=== PATIENT | male | born 1935 | race Caucasian/White ===

== ENCOUNTER 2017-04-04 12:32 | Emergency (ER) | payer MEDICARE, OTHER ==
[~2017-04-04] VITALS: Ht 175.3 cm; Wt 93.0 kg
[~2017-04-04 12:32] MED LIST: DIOVAN320 MG PO; DULERA1 AE1 IN; KEFLEX500 MG PO; LANSOPRAZOLE30 MG PO; LOVASTATIN40 MG PO; METOPROL TAR100 M1 PO; METOPROL TAR100 MG PO; MEVACOR40 MG PO; NORVASC10 M1 PO; PREVACID15 M1 PO
[2017-04-04] MEDS ORDERED: FUROSEMIDE20 MG PO (12:50)
[2017-04-04] MEDS ORDERED: CLONIDINE0.1 MG PO (12:51)
[2017-04-04] MEDS ORDERED: COQ10200 MG PO (12:52)
[2017-04-04] MEDS ORDERED: ADVAIR HF1 IN (12:52)
[2017-04-04] MEDS ORDERED: RANITIDINE150 M1 PO (12:53)
[2017-04-04] MEDS ORDERED: ALLERGY10 M1 PO (12:53)
[2017-04-04 13:08] LABS: HEMOGLOBIN 10.5 g/dl (14.0-18.0); IMMATURE GRANULOCYTES 0.4 % (0.0-1.0); MEAN CELL VOLUME 90.1 fL CALC (80.0-100.0); MEAN CORPUSCULAR HGB 29.6 pG CALC (26.0-32.0); MEAN CORPUSCULAR HGB CONC 32.8 g/L CALC (32.0-36.0); NEUT# 5.53 thou/uL (1.82-7.42); RED BLOOD COUNT 3.55 mill/uL (4.70-6.10); RED CELL DISTRI WIDTH 16.6 % (11.5-15.5)
[2017-04-04 13:27] LABS: BILIRUBIN, TOTAL 0.6 mg/dL (0.0-1.4); CREATININE 1.5 mg/dL (0.7-1.3); MAGNESIUM 1.5 mg/dL (1.6-2.3); POTASSIUM 4.2 mmol/l (3.5-5.1); TOTAL PROTEIN 8.2 g/dL (6.3-8.2)
[2017-04-04 15:29] VITALS: BP 164/75
== END 2017-04-04 15:30 ==
LOC: ED 12:32
PROVIDERS: Emergency Medicine
DX: K92.2 Gastrointestinal hemorrhage, unspecified (principal); E83.42 Hypomagnesemia; I10 Essential (primary) hypertension
CPT/HCPCS: J3475; S0164

== ENCOUNTER 2017-04-07 03:36 | Emergency (ER) | payer MEDICARE, OTHER ==
[~2017-04-07] VITALS: Ht 175.3 cm; Wt 93.0 kg
[~2017-04-07 03:36] MED LIST changes: +ADVAIR HF1 IN; +ALLERGY10 M1 PO; +CLONIDINE0.1 MG PO; +COQ10200 MG PO; +FUROSEMIDE20 MG PO; +RANITIDINE150 M1 PO
[2017-04-07 03:57] LABS: HEMATOCRIT 20.3 % (39.0-50.0); IMMATURE GRANULOCYTES 0.7 % (0.0-1.0); MEAN CELL VOLUME 96.2 fL CALC (80.0-100.0); MEAN CORPUSCULAR HGB 31.3 pG CALC (26.0-32.0); MEAN CORPUSCULAR HGB CONC 32.5 g/L CALC (32.0-36.0); NEUT# 12.16 thou/uL (1.82-7.42); RED BLOOD COUNT 2.11 mill/uL (4.70-6.10); RED CELL DISTRI WIDTH 17.2 % (11.5-15.5)
[2017-04-07 04:01] LABS: HEMOGLOBIN 6.6 g/dl (14.0-18.0)
[2017-04-07 04:08] VITALS: BP 137/62
[2017-04-07 04:10] LABS: ALBUMIN 3.7 g/dL (3.2-5.0); BILIRUBIN, TOTAL 0.6 mg/dL (0.0-1.4); CALCIUM 9.1 mg/dL (8.4-10.2); CREATININE 2.2 mg/dL (0.7-1.3); POTASSIUM 4.7 mmol/l (3.5-5.1); TOTAL PROTEIN 5.9 g/dL (6.3-8.2)
[2017-04-07] MEDS ORDERED: CHLORTHALIDONE25 MG PO (04:11)
[2017-04-07] MEDS ORDERED: NIFEDIPINE60 MG PO (04:12)
[2017-04-07] MEDS ORDERED: PROTONIX40 M2 PO (04:13)
[2017-04-07] MEDS ORDERED: CARAFATE1 GM PO (04:14)
[2017-04-07 04:28] VITALS: BP 145/64
[2017-04-07 04:44] VITALS: BP 197/78
[2017-04-07 05:14] VITALS: BP 175/77
== END 2017-04-07 05:33 ==
LOC: ED 03:36
PROVIDERS: Emergency Medicine
PROC: 30233N1 Transfusion of Nonautologous Red Blood Cells into Peripheral Vein, Percutaneous Approach (ICD-10-PCS; principal; 2017-04-07)
PROC: 30233N1 Transfusion of Nonautologous Red Blood Cells into Peripheral Vein, Percutaneous Approach (ICD-10-PCS; 2017-04-07)
DX: K92.0 Hematemesis (principal); D50.0 Iron deficiency anemia secondary to blood loss (chronic); I10 Essential (primary) hypertension; J44.9 Chronic obstructive pulmonary disease, unspecified; K25.9 Gastric ulcer, unspecified as acute or chronic, without hemorrhage or perforation
CPT/HCPCS: P9016; S0164

== ENCOUNTER 2018-08-22 09:25 | Inpatient (IN) | payer MEDICARE, OTHER ==
[~2018-08-22] VITALS: Ht 175.3 cm; Wt 73.0 kg
[2018-08-22] VITALS (10 sets, daily range): BP systolic 104–131; BP diastolic 54–62
[~2018-08-22 09:25] MED LIST changes: +CARAFATE1 GM PO; +CHLORTHALIDONE25 MG PO; +NIFEDIPINE60 MG PO; +PROTONIX40 M2 PO
--- NOTE | 2018-08-22 09:38 | NUR ---
WHEELCHAIR TO [facility], TO BED
[2018-08-22 10:17] LABS: HEMATOCRIT 33.3 % (39.0-50.0); HEMOGLOBIN 10.8 g/dl (14.0-18.0); IMMATURE GRANULOCYTES 0.4 % (0.0-5.0); MEAN CORPUSCULAR HGB 27.8 pG CALC (26.0-32.0); MEAN CORPUSCULAR HGB CONC 32.4 g/L CALC (32.0-36.0); NEUT# 18.14 thou/uL (1.82-7.42); RED BLOOD COUNT 3.89 mill/uL (4.70-6.10)
[2018-08-22 10:21] LABS: MEAN CELL VOLUME 85.6 fL CALC (80.0-100.0)
--- NOTE | 2018-08-22 10:30 | NUR ---
PATIENT RESTING AWAIITNG LAB AND RADIOLOGY RESULTS PATIENT STATES SOB DECREASED AND DENIES ANY CHEST PAIN AT THIS TIME
[2018-08-22 10:39] LABS: ALBUMIN 3.5 g/dL (3.2-5.0); BILIRUBIN, TOTAL 0.5 mg/dL (0.0-1.4); CREATININE 1.7 mg/dL (0.7-1.3); POTASSIUM 3.7 mmol/l (3.5-5.1); TOTAL PROTEIN 6.7 g/dL (6.3-8.2)
--- NOTE | 2018-08-22 11:30 | NUR ---
PATIENT RESTING STILL IN AFIB WITH A RATE AT 120 CARDIZEM TITRATED TO 20MG AN HOUR. PATIENT DENIES ANY PAIN OR SOB AT THIS TIME
[2018-08-22] MEDS ORDERED: DILTIAZEM120 M3 PO (11:40)
[2018-08-22] MEDS ORDERED: ESCITALOPRAM OXA5 MG PO (11:41)
[2018-08-22] MEDS ORDERED: SPIRIVA HANDIH18 MCG IN (11:44)
[2018-08-22] MEDS ORDERED: TAMSULOSIN HCL0.4 MG PO (11:45)
[2018-08-22] MEDS ORDERED: METOPROL TAR25 MG PO (11:47)
[2018-08-22] MEDS ORDERED: FIRST-OMEPRAZ2 MG/ML PO (11:48)
[2018-08-22] MEDS ORDERED: HUMALOG100 UNIT/M SC (11:50)
[2018-08-22] MEDS ORDERED: MEGESTROL AC PO (11:50)
--- NOTE | 2018-08-22 12:00 | NUR ---
NORIEGA INSERTED USING STERILE TECHNIQUE 16 IRANIAN 800 ML QUANG URINE OUTPUT
[2018-08-22 12:57] LABS: URINE BILIRUBIN - DIPSTICK NEGATIVE (NEGATIVE); URINE BLOOD DIPSTICK NEGATIVE (NEGATIVE); URINE COLOR YELLOW; URINE GLUCOSE - DIPSTICK NEGATIVE (NEGATIVE); URINE KETONE NEGATIVE (NEGATIVE); URINE PH 5.5 (4.5-8.0); URINE PROTEIN - DIPSTICK NEGATIVE (NEG-TRACE); URINE UROBILINOGEN - DIPSTICK 0.2 E.U./dL (0.2)
--- NOTE | 2018-08-22 13:00 | NUR ---
PATIENT RESTING AWAIITNG ROOM ASSIGNMNET PATIENT DENIES SOB OR CHEST PAIN AT THIS TIME. PATIENT REMAINS IN AFIB
[2018-08-22 13:01] LABS: URINE LEUK ESTERASE MODERATE (NEGATIVE); URINE NITRITE - DIPSTICK POSITIVE (Negative)
[2018-08-22 13:09] LABS: URINE BACTERIA MANY hpf; URINE SQUAMOUS EPITHELIAL CELL FEW EPI/hpf (0-FEW)
--- NOTE | 2018-08-22 13:23 | NUR ---
REPORT RECVD FROM UNA SCHERER IN THE ER. ASKED HIM TO VERIFY PTS SPELLING OF LAST NAME. PT WILL BE UP IN "A WHILE". CASE MANAGEMENT CALLING, INQUIRING ABOUT PT, INFORMED PT IS NOT HERE YET.
--- NOTE | 2018-08-22 13:30 | NUR ---
REPORT CALLED TO ICU
--- NOTE | 2018-08-22 14:14 | NUR ---
PTS CALLED, TRANSFERED HER TO ER. PT NOT IN THE ICU YET.
--- NOTE | 2018-08-22 14:23 | NUR ---
PT ARRIVED TO ICU 2 BY STRETCHER IN STABLE CONDITION WITH IV & O2.
--- NOTE | 2018-08-22 14:25 | NUR ---
CARDIZEM TITRATED DOWN TO 15 FROM 20 IN THE ER DUE TO 15 BEING THE CEILING AMOUNT OF 15 IN THE ICU.
--- NOTE | 2018-08-22 14:25 | NUR ---
PATIENT TRANSPORTED TO ICU
--- NOTE | 2018-08-22 15:00 | NUR ---
PT AWAKE & ALERT/ORIENTED x4. ANSWERS QUESTIONS CORRECTLY W/OUT HESITATION. PT WEARING GLASSES, DENIES HEARING AIDS OR HARD OF HEARING, STATES HE HAS UPPER & LOWER DENTURES BACK AT [facility]. PT STATES HE DRINKS 3 GLASSES OF VODKA PER DAY. 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 BREATHING EVEN/UNLABORED, COARSE CRACKLES HEARD THROUGHT LUNGS. ABD SOFT/NONTENDER, ACTIVE BS. PEG TUBE IN UPPER/MID ABD. BILATERAL HEELS BLANCHABLE, ELEVATED ON A PILLOW TO OFFLOAD. REDDNESS TO BUTTOCKS WITH MILD BREAKDOWN, PHOTOGRAPHED. PT STATES HE HAS A LIVING WILL AT HOME. NKA. HAD A LIQUID BROWN BM YESTERDAY WHICH IS NORMAL FOR PT, DOES NOT NEED ENEMAS. CESAR, HAS DRIFT TO ALL EXTREMETIES. STRONG PULSES x4. PALE/COOL/DRY SKIN. MOISTURE BALM APPLIED TO CRACKED LIPS. HAS NO ALEVISM PREFERENCE. 'S NAME IS HARMAN.
--- NOTE | 2018-08-22 15:05 | NUR ---
UPON PALPATION & AUSCULTATION, PT APPEARS TO BE IN NSR WITH OCCASIONAL PVC'S. RT ASKED TO DO REPEAT EKG. EKG READS SINUS TACHYCARDIA WITH PREMATURE SUPRAVENTRICULAR COMPLEXES AND WITH OCCASIONAL PREMATURE VENTRICULAR COMPLEXES. CARDIZEM TITRATED TO 10 IN AN EFFORT TO STOP IV MED.
[2018-08-22] MEDS ORDERED: MULTI VIT PO (15:25)
[2018-08-22] MEDS ORDERED: FINASTERIDE5 MG PO (15:25)
--- NOTE | 2018-08-22 15:30 | NUR ---
PT WORKING BED CONTROLS & TV REMOTE BY SELF. STATES HE EATS BY MOUTH AND BY PEG TUBE. PER [facility], PT HAS A "REGULAR DIET PUREED TEXTURE, NECTAR CONSISTENCY, NO STAWS FOR NUTRITIONAL NEEDS."
[2018-08-22] MEDS ORDERED: ONDANSETRON HCL4 MG PO (15:35)
--- NOTE | 2018-08-22 15:45 | NUR ---
DR RODRIGUEZ NOTIFIED OF NEWEST EKG AND STEP DOWN OF CARDIZEM. PT SLEEPING AT THIS TIME.
--- NOTE | 2018-08-22 16:20 | NUR ---
DR RODRIGUEZ @BEDSIDE WITH PT.
--- NOTE | 2018-08-22 16:44 | NUR ---
PTS CALLED FOR UPDATE ON PT. CODE GIVEN TO & PT SPOKE WITH ON PORT PHONE.
--- NOTE | 2018-08-22 18:40 | NUR ---
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 PT STATES HE FEELS MORE COMFORTABLE IN SEMIFOWLERS POSITION. PT DENIES N/V SINCE ARRIVAL TO ICU. PT GIVEN PO MED VIA PEG TUBE EARLIER WITHOUT N/V. PT DENIES ANY NEW NEEDS/CONCERNS AT THIS TIME.
--- NOTE | 2018-08-22 18:45 | NUR ---
REPORT FROM Sary HILLIARD RN. ASSUMED PT. CARE.
--- NOTE | 2018-08-22 19:55 | NUR ---
PT. FOUND RESTING IN BED WATCHING TELEVISION IN NO DISTRESS. CRACKLES TO RT. BASE, OTHERWISE CLEAR. HARSH MOIST COUGH NOTED, UNABLE TO PRODUCE SPUTUM. PULSES INTACT. SINUS IN THE 80'S. ADVENTITIOUS BREATH SHOULD APPEAR TO BE TRCHEALLY IN ORIGIN. BOWEL SOUNDS PRESENT IN ALL QUADS. PT. STATES LAST BM WAS YESTERDAY AND LOOSE. STATES WITH MILD PAIN TO BUTTOCK AT SITE OF WOUND/REDNESS. SEE PHOTOGRAPHIC DOCUMENTATION. DENIES SOB OR CP. VSS. CESAR. CALL LIGHT REMAINS WITHIN REACH. UPDATED ON PLAN OF CARE. WILL CONTINUE TO MONITOR.
--- NOTE | 2018-08-22 21:30 | NUR ---
PT. CLEANSED OF STOOL AT THIS TIME. SMALL LOOSE STOOL NOTED. PT. CLEANSED AND LINENS CHANGED. DUODERM DRESSING APPLIED TO LT. BUTTOCK WOUND. PT. REPOSITIONED TO RT. SIDE AT THIS TIME. WILL CONTINUE TO TURN AND MONITOR NEEDED.
--- NOTE | 2018-08-22 22:00 | NUR ---
NEB TREATMENT COMPLETED AT THIS TIME. PT. TOLERATED WELL. PT. CONGESTION APPEARS TO BE TRACHEAL IN NATURE. LUNGS CLEAR WITH EXCEPTION OF RT. BASE THAT HAS FAINT CRACKLES. NO OTHER ADVENTITIOUS LUNG SOUNDS NOTED. PT. UNABLE TO CLEAR OR COUGH UP ANY SPUTUM. WILL CONTINUE TO MONITOR.
[2018-08-23] VITALS (13 sets, daily range): BP systolic 119–159; BP diastolic 57–74
--- NOTE | 2018-08-23 01:02 | NUR ---
ZOSYN INFUSED. NO REACTIONS NOTED. ALL LUMENS FLUSHED PER PROTOCOL AT THIS TIME. PT. REMAINS EASILY AROUSABLE. REMAINS IN SINUS RHYTHM WITH PVC'S. DENIES COMPLAINTS OF PAIN OR NEEDS AT THIS TIME. WILL CONTINUE TO MONITOR.
--- NOTE | 2018-08-23 03:36 | NUR ---
PT. CONTINUES WITH MOIST HARSH SOUNDING COUGH. SPO2 REMAINS STABLE. HR REMAINS SINUS IN THE 90'S. NO RESP DISTRESS NOTED. CALL LIGHT REMAINS WITHIN REACH. WILL CONTINUE TO MONITOR.
--- NOTE | 2018-08-23 05:39 | NUR ---
LABS DRAWN AND CENTRAL LINE FLUSHED PER PROTOCOL. ZOSYN INFUSING WITHOUT SX OF INFILTRATION OR EXTRAVASATION. CALL LIGHT REMAINS WITHIN REACH. CONTINUES WITH INTERMITTENT HARSH COUGH. WILL CONTINUE TO MONITOR.
[2018-08-23 05:49] LABS: HEMATOCRIT 28.7 % (39.0-50.0); HEMOGLOBIN 9.4 g/dl (14.0-18.0); IMMATURE GRANULOCYTES 0.7 % (0.0-5.0); MEAN CELL VOLUME 86.7 fL CALC (80.0-100.0); MEAN CORPUSCULAR HGB 28.4 pG CALC (26.0-32.0); MEAN CORPUSCULAR HGB CONC 32.8 g/L CALC (32.0-36.0); NEUT# 11.56 thou/uL (1.82-7.42); RED BLOOD COUNT 3.31 mill/uL (4.70-6.10); RED CELL DISTRI WIDTH 17.2 % (11.5-15.5)
--- NOTE | 2018-08-23 06:10 | NUR ---
ZOSYN COMPLETE, NO REACTIONS. LUMEN FLUSHED PER PROTOCOL. RT AT BEDSIDE TO ADMINISTER NEB TREATMENT. PT. STABLE. REMAINS SINUS RHYTHM WITH FREQUENT PVC'S.
[2018-08-23 06:14] LABS: ALBUMIN 2.8 g/dL (3.2-5.0); BILIRUBIN, TOTAL 0.3 mg/dL (0.0-1.4); CREATININE 1.8 mg/dL (0.7-1.3); MAGNESIUM 1.5 mg/dL (1.6-2.3); POTASSIUM 3.5 mmol/l (3.5-5.1); TOTAL PROTEIN 5.8 g/dL (6.3-8.2)
--- NOTE | 2018-08-23 07:30 | NUR ---
pt awake in bed; no apparent distress noted; pt offers no complaints; assessment completed at this time; pt alert and oriented; denies pain; no n/v noted; resp even and unlabored; lungs coarse/ rhonchi rigth base; skin color wnl; o2 per nc; bitumastic applier moist harsh cough noted; hr reg; strong pulses; no edema noted; st pac/pvc on monitor; abd soft with bs present; mod loose lt brown bm noted; pericare at this time; mcgregor to gravity with cath cornejo intact place; catheter care done; #20 to lw flushed and patent; RIJ TLC flushed and patent with good blood aspirate noted from all lumens; wound with douderm intact to left buttock; repositioned; oral care wth toothette; am meds explained; call light within reach; will continue to monitor
--- NOTE | 2018-08-23 08:08 | NUR ---
awake in bed; offers no complaints; remains npo pending speech therapy consult; iv's intact' st pvc/pac on monitor; mcgregor to gravity; pt deny needs; call light within reach; will continue to monitor
--- NOTE | 2018-08-23 08:17 | NUR ---
spouse called this specifications writer; passcode verified; update given;
--- NOTE | 2018-08-23 08:48 | NUR ---
pharmacy Mickey called per proposal manager writer; howie results reviewed in regards to lovenox order; lovenox to be given as ordered with approval from pharmacy;
--- NOTE | 2018-08-23 09:22 | NUR ---
LETI Ordoñez called per senior writer in regards to speech therapy marie Ordoñez request order to be faxed; order faxed as per request;
--- NOTE | 2018-08-23 09:27 | NUR ---
Dr Pate present at bedside to assess pt and discuss plan of care
--- NOTE | 2018-08-23 10:06 | NUR ---
awake in bed; spouse present at bedside; no apparent distress noted; sr on monitor; mcgregor to gravity; call light within reach; will continue to monitor
--- NOTE | 2018-08-23 10:59 | NUR ---
[facility]IVIA FROM [facility] CALLED AND STATES THAT HE HAS A TOTAL CONTACT CAST ON THAT SHOULD BE CUT OFF TODAY, THEY ARE CONCERNED ABOUT IT STAYING ON UNTIL HE GETS D/C'D AND CAN RETURN TO THEM FOR FURTHER TREAMTENT. WILL NOTIFY ON AM ROUNDS.
--- NOTE | 2018-08-23 11:35 | NUR ---
CARDIZEM PO REVIEWED WITH MD; MEDICATION DISCONTINUED
--- NOTE | 2018-08-23 12:00 | NUR ---
[id number] pt transported to CT via strecther with portable o2 accompanied by this marine underwriter; marine underwriter remains with pt 1200- returned to unit in stable condition; back to bed; repositioned to right side; monitoring attachments reconnected; mcgregor to gravity; sr on monitor; iv resumed; fluids infusing without complicatoin; oral care; call light within reach; will continue to monitor
--- NOTE | 2018-08-23 12:45 | NUR ---
resting in bed with eyes closed; no apparent distress noted; sr on monitor; will continue to monitor
--- NOTE | 2018-08-23 14:06 | NUR ---
resting with eyes closed; no apparent distress noted; iv patent; no redness or edema noted at site; sr on monitor; mcgregor to gravity; o2 per nc; call light within reach; will continue to monitor
--- NOTE | 2018-08-23 16:15 | NUR ---
awake in bed receiving neb tx; pt offers no complaints; denies pain; sr on monitor; iv patent; no redness or edema noted at site; o2 per nc; mcgregor to gravity; call light within reach; will continue to monitor
--- NOTE | 2018-08-23 16:58 | NUR ---
speech therapist at bedside for swallowing eval
--- NOTE | 2018-08-23 17:43 | NUR ---
Mr. 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 He reports he was golfing 3x weekly, doing yardwork and very active until April 16, 2018 when he had surgery on his bowel. Per Mr. Slater, he went to the rehab center following discharge from the hospital and has experienced a steady decline in health. He offered that he had a MBSS approximately 5 months ago and a PEG tube placed approximately 3 months. Mr. Slater could not verbalize the reason for the PEG tube other that "someone said there was something wrong with my swallow." It is reported that in the rehab center Mr. Slater received nourishment and hydration both orally and via the PEG tube. He was given a puree diet with nectar thickened liquids. Mr. Slater displayed a wet, harsh vocal quality with frequent coughing. He attempted to cough up material but was unable to expectorate. Respiration was audible with wet quality. Mr. Slater is edentulous with dentures at bedside which he stated he no longer wears. Lingual movement was wnl and Mr. Slater was able to easily clear oral moisturizer from his lips. When given small bolus of water, Mr. Slater immediately began coughing for 30-45 seconds and stated the water "went down the wrong way." Multiple prompts to cough and clear were given and even though Mr. Slater complied, he was unable to clear wet/harshness of vocal quality or reduce audible respiration. Given Mr. Slater' current status and presence of PEG tube, consult recommendations include: Frequent oral care with clearing of dried saliva from oral cavity and lips. Suction prn. Position no less than 30 degree angle. Remain NPO with nutrition and hydration administered via PEG until pneumonia is cleared and patient is more stable with the ability to clear pharyx/larynx with cough/clear. SHAREPOINT APPLICATION ARCHITECT will be able to make further recommendations when MBSS report is available. SHAREPOINT APPLICATION ARCHITECT available if needed prn. Contact number outside of PM business hours provided. Thank you for this referral. Agustina Guzman M.A., [facility])-SHAREPOINT APPLICATION ARCHITECT
--- NOTE | 2018-08-23 17:50 | NUR ---
awake in bed; complete bed bath with catheter care and linen change done; pt repositioned to left side; hob elevated; iv patent; fluids infusing without complication; no redness or edema noted at site; st on monitor; npo continues; bed in lowest position; call light within reach
--- NOTE | 2018-08-23 18:50 | NUR ---
REPORT FROM Matthew VO RN. ASSUMED PT. CARE.
--- NOTE | 2018-08-23 20:39 | NUR ---
PT. FOUND RESTING WITH EYES CLOSED IN NO DISTRESS. EASILY AROUSABLE TO LIGHT VERBAL STIMULI. ORIENTED X 3. SKIN WARM AND DRY. AFEBRILE AT 98.1. RESPS EVEN AND UNLABORED. INTERMITTENT HARSH MOIST COUGH REMAINS. VSS. SINUS WITH PVC'S NOTED. BOWEL SOUNDS PRESENT. IV FLUIDS TO RT. IJ TRIPLE LUMEN INFUSING WITHOUT ISSUE. NO EDMEA NOTED. PULSES PRESENT THROUGHOUT. LUNGS CLEAR TO UPPERS, DIMINSHED TO BASES BILAT. PT. MEDICATED PER PHYSICIAN ORDERS VIA PEG AND FLUSHED. ACCUCHECK 133, NO COVERAGE GIVEN. CALL LIGHT WITHIN REACH. PT. REPOSITIONED TO SUPINE AT THIS TIME FROM LT. SIDE. WILL CONTINUE TO MONITOR.
--- NOTE | 2018-08-23 22:30 | NUR ---
PT. RESTING SUPINE WITH EYES CLOSED IN NO DISTRESS. RESPS EVEN AND UNLABORED. REMAINS WITH INTERMITTENT MOIST COUGH. IV FLUIDS CONTINUE TO INFUSE AT 75 CC/HR. CALL LIGHT REMAINS WITHIN REACH.
[2018-08-24] VITALS (12 sets, daily range): BP systolic 125–162; BP diastolic 58–74
--- NOTE | 2018-08-24 00:49 | NUR ---
ZOSYN INFUSED. NO REACTIONS NOTED. REMAINS STABLE. PT. REPOSITIONED TO RT. SIDE AT THIS TIME. REMANIS SINUS RHYTHM IN THE 90'S. WILL CONTINUE TO MONITOR.
--- NOTE | 2018-08-24 02:28 | NUR ---
PT. CONTINUES TO REST WELL. RESPS REMAIN EVEN AND UNLABORED. IV FLUIDS CONTINUE TO INFUSE WITHOUT SIGNS OF INFILTRATION. VSS. REMAINS SINUS IN THE 90'S WITH PVC AND PAC'S. SPO2 REMAINS STABLE ON 2L NC. CALL LIGHT REMAINS WITHIN REACH. WILL CONTINUE TO MONITOR.
--- NOTE | 2018-08-24 04:05 | NUR ---
PT. CONTINUES TO REST IN NO DISTRESS. IV FLUIDS CONTINUE TO INFUSE WITHOUT INFILTRATION OR EXTRAVASATION. PT. REMAINS EASILY AROUSABLE TO LIGHT VERBAL STIMULI. CALL LIGHT REMAINS WITHIN REACH.
--- NOTE | 2018-08-24 04:40 | NUR ---
LABS DRAWN FROM CENTRAL LINE AT THIS TIME. PT. REMAINS EASILY AROUSABLE TO LIGHT VERBAL STIMULI. CENTRAL LINE FLUSHED PER PROTOCOL. WILL CONTINUE TO MONITOR.
[2018-08-24 04:59] LABS: HEMATOCRIT 28.1 % (39.0-50.0); HEMOGLOBIN 8.9 g/dl (14.0-18.0); IMMATURE GRANULOCYTES 0.9 % (0.0-5.0); MEAN CELL VOLUME 87.5 fL CALC (80.0-100.0); MEAN CORPUSCULAR HGB 27.7 pG CALC (26.0-32.0); MEAN CORPUSCULAR HGB CONC 31.7 g/L CALC (32.0-36.0); NEUT# 7.66 thou/uL (1.82-7.42); RED BLOOD COUNT 3.21 mill/uL (4.70-6.10); RED CELL DISTRI WIDTH 17.2 % (11.5-15.5)
[2018-08-24 05:12] LABS: ALBUMIN 2.8 g/dL (3.2-5.0); BILIRUBIN, TOTAL 0.2 mg/dL (0.0-1.4); CREATININE 1.6 mg/dL (0.7-1.3); POTASSIUM 3.3 mmol/l (3.5-5.1); TOTAL PROTEIN 5.8 g/dL (6.3-8.2)
[2018-08-24 05:20] LABS: MAGNESIUM 1.9 mg/dL (1.6-2.3)
--- NOTE | 2018-08-24 06:32 | NUR ---
PT. LINENS CHANGED, RODNEY AND BUTTICKS CLEANSED AT THIS TIME. NEW DUODERM SPOT PLACED TO LT. BUTTOCK WOUND. GOWN CHANGED AT THIS TIME. BARRIER CREAM APPLIED.
--- NOTE | 2018-08-24 07:00 | NUR ---
pt noted resting with eyes closed; easily aroused; pt offers no complaints; assessment completed at this time; pt alert and oriented; denies pain; no n/v noted; resp even and unlabored; lungs coarse with rhonchi noted to right patel; skin color pale; o2 per nc; prescription clerk moist cough noted; suction set up at bedside; hr reg; strong pulses; no edema noted; sr with pac/pvc on monitor; abd soft with bs present; no bm noted per senior writer; peg tube intact to upper abd with no drainage noted from insertion site; pt remains npo; mcgregor to gravity draining cloudy yellow urine; cath strap intact; #22 to lw flushed and patent/ saline locked; TLC to RIJ patent with ivf infusing without complication; no redness or edema noted at site; duoderm intact to left buttock with redness noted; repositioned to supine position as per request; hob elevated; plan of care/ am meds explained; call light within reach; will continue to monitor
--- NOTE | 2018-08-24 08:07 | NUR ---
resting in bed with eyes closed; easily aroused; no distress noted; pt offers no complaints; oral care with toothette; repositioned to right side; mcgregor to gravity; iv patent; call light within reach; will continue to monitor
--- NOTE | 2018-08-24 10:02 | NUR ---
resting in bed with eyes closed; no apparent distress noted; iv patent; no redness or edema noted at site; o2 per nc; mcgregor to gravity; sr on monitor; call light within reach; will continue to monitor
--- NOTE | 2018-08-24 10:07 | NUR ---
Dr Pate present at bedside to assess pt and discuss plan of care
--- NOTE | 2018-08-24 10:34 | NUR ---
Vancomycin consult Age: 83 yo Serum creatinine: 1.6 mg/dL Height: 69.0 Inches Weight (kg): 73.283 IBW (kg): 70.70 Dosing wt(kg): 73.283 Estimated Creatinine clearance (ml/min): 36.2 CRCL method: Cockcroft and Gault using ibw(default). Vd (liters): 51.3 (factor used: 0.7 L/kg) Boo (hr-1): 0.034 Half life (hrs): 20.39 Recommended dose: 1000 mg Interval: 24 hrs Infusion time (hrs): 2.0 Predicted peak (mcg/mL): 34 Predicted trough (mcg/mL): 16.00 Total body weight is being used for vancomycin dosing.
--- NOTE | 2018-08-24 11:00 | NUR ---
awake conversing on cell phone; offers no complaints; peg site cleansed and drain sponge applied; medication administered; vanco infusing via lw site; no redness or edema noted at site; will continue to monitor
--- NOTE | 2018-08-24 12:03 | NUR ---
resting with eyes closed; easily aroused; offers no complaints; iv patent; no redness or edema noted at site; sr pvc on monitor; mcgregor to gravity; o2 per nc; repositioned; oral care; call light within reach; will continue to monitor
--- NOTE | 2018-08-24 13:00 | NUR ---
pt reports "I think I made a mess"; lg liquid brown bm noted; complete bed bath, catheter care, oral care and linen change; barrier cream to buttocks; duoderm spot intact; repositioned to left side; tube feed with glucerna and free H20 completed and tolerated well; hob remains elevated; call light within reach; will continue to montor
--- NOTE | 2018-08-24 14:15 | NUR ---
awake in bed watching television; no distress noted; resp even and unlabored; iv patent; fluids infusing without complication; no redness or edema noted at sites; sr pvc on monitor; mcgregor to gravity; oral care with toothette per self; call light within reach; will continue to monitor
--- NOTE | 2018-08-24 16:12 | NUR ---
awake in bed; repositioned to supine; hob elevated; iv patent; no redness or edema noted at site; mcgregor to gravity; sr on monitor; o2 per nc; deny needs; call light within reach; will continue to monitor
--- NOTE | 2018-08-24 16:34 | NUR ---
personal computer specialist light; request cream to applied to buttom; pt denies bm; lg liquid bm noted; pericare per staff; barrier cream applied; repositined to right side; hob elevated; oral care with toothette; will continue to monitor
--- NOTE | 2018-08-24 17:45 | NUR ---
awake grease monkey light; repositioned supine as per request; mcgregor to gravity; iv patent; no redness or edema noted at site; o2 per nc; sr on monitor; deny needs; bed in lowest position; call light within reach
--- NOTE | 2018-08-24 18:50 | NUR ---
REPORT FROM Matthew VO RN. ASSUMED PT. CARE.
--- NOTE | 2018-08-24 18:50 | NUR ---
resting in bed with eyes closed; no apparent distrss noted; call light within reach
--- NOTE | 2018-08-24 19:45 | NUR ---
PT. FOUND AWAKE, ALERT, ORIENTED X 3. KNOWS MONTH AND YEAR. PT. ONLY COMPLAINT IS SOME MILD PAIN TO BUTTOCKS. WILL TURN Q2H AND PRN. PT. DENIES COMPLAINTS OF SOB. RESPS EVEN AND UNLABORED. REMAINS WITH MOIST/HARSH COUGH. LUNG SOUND CLEAR THROUGHOUT. BOWEL SOUNDS PRESENT. PULSES INTACT DISTILLY. BP/HR STABLE. SINUS RHYTHM WITH PAC/PVC'S. NO DISTRESS AT THIS TIME. WILL CONTINUE TO CLOSELY MONITOR.
--- NOTE | 2018-08-24 21:15 | NUR ---
PT. ACCUCHECK IS NOW 96, NO COVERAGE GIVEN. MEDICATED WITH REGLAN AND METOPROLOL VIA PEG ORDERED. TUBE FEED GLUCERNA PROVIDED AT THIS TIME AND FLUSHED WITH 200 CC WATER. PT. TOLERATED WELL WITHOUT DISCOMFORT. WILL REASSESS RESIDUALS. VSS. CALL LIGHT REMAINS WITHIN REACH. COMPUTER PROVIDED TO PATIENT WHO IS NOW WATCHING THE FOOTBALL GAME PER HIS REQUEST.
--- NOTE | 2018-08-24 22:51 | NUR ---
PT. CLEANSED OF LARGE LIQUID STOOL. LINENS CHANGED AT THIS TIME. PT. REPOSITIONED TO LT. SIDE AND HOB ELEVATED AT 40 DEGRESS AT THIS TIME. WILL CONTINUE TO ASSESS.
[2018-08-25] VITALS (9 sets, daily range): BP systolic 97–169; BP diastolic 52–78
--- NOTE | 2018-08-25 00:15 | NUR ---
ZOSYN INFUSING WITHOUT SX OF INFILTRATION OR EXTRAVASATION. PT. REMAINS WITH INTERMITTENT MOIST COUGH, UNABLE TO CLEAR. REMAINS SINUS IN THE 90'S. WILL CONTINUE TO MONITOR.
--- NOTE | 2018-08-25 02:25 | NUR ---
PT. CONTINUES WITH INTERMITTENT MOIST COUGH. REMAINS UNABLE TO CLEAR. VSS. REMAINS EASILY AROUSABLE TO LIGHT VERBAL STIMULI. WILL CONTINUE TO MONITOR.
--- NOTE | 2018-08-25 04:20 | NUR ---
LABS OBTAINED FROM CENTRAL LINE AT THIS TIME. IV FLUIDS INFUSING AT KVO. PT. REMAINS SINUS IN THE 80'S. BP/SPO2 STABLE. PT. REMAINS ON 2L NC. ASSESSED FOR STOOL, NONE NOTED.
--- NOTE | 2018-08-25 05:20 | NUR ---
NEB TREATMENT COMPLETE AT THIS TIME. PT. REMAINS EASILY AROUSABLE. CALL LIGHT REMAINS WITHIN REACH. WILL CONTINUE TO ASSESS.
[2018-08-25 05:48] LABS: HEMATOCRIT 28.1 % (39.0-50.0); HEMOGLOBIN 8.9 g/dl (14.0-18.0); IMMATURE GRANULOCYTES 1.1 % (0.0-5.0); MEAN CELL VOLUME 87.8 fL CALC (80.0-100.0); MEAN CORPUSCULAR HGB 27.8 pG CALC (26.0-32.0); MEAN CORPUSCULAR HGB CONC 31.7 g/L CALC (32.0-36.0); NEUT# 6.38 thou/uL (1.82-7.42); RED BLOOD COUNT 3.2 mill/uL (4.70-6.10); RED CELL DISTRI WIDTH 17.1 % (11.5-15.5)
[2018-08-25 05:53] LABS: ALBUMIN 2.7 g/dL (3.2-5.0); BILIRUBIN, TOTAL 0.3 mg/dL (0.0-1.4); CREATININE 1.5 mg/dL (0.7-1.3); MAGNESIUM 1.6 mg/dL (1.6-2.3); POTASSIUM 3.8 mmol/l (3.5-5.1); TOTAL PROTEIN 5.6 g/dL (6.3-8.2)
--- NOTE | 2018-08-25 06:05 | NUR ---
PT. CLEANSED OF LIQUID STOOL. DUODERM SPOT REAPPLIED. PHOTOGRAPHIC DOCUMENTATION OBTAINED AND IN CHART. ZOSYN INFUSING WITHOUT SX OF REACTION. WILL CONTINUE TO ASSESS.
--- NOTE | 2018-08-25 07:20 | NUR ---
pt noted resting in bed with eyes closed; easily aroused; offers no complaints; deny needs; assessment completed at this time; pt alert and oriented; denies pain; no n/v noted; resp even and unlabored; lungs coarse; skin color wnl; o2 per nc; freq zigzag stitcher moist harsh cough noted; suction at bedside; hr reg; strong pulses; no edema noted; sr pvc on monitor abd soft with bs present; no bm noted per investment underwriter at this time; peg tube intact to upper abd with scant dry/crusted yellow/green drainage to drain sponge; residual checked with 60cc gastric/bile content noted; hob remains elevated; mcgregor to gravity draining sediment/cloudy urine; cath strap intact; #22 to lw intact; TLC to RIJ patent with ivf infusing without complication; no redness or edema noted at site; duoderm spot to left buttock intact; plan of care/ am meds/ tube feed explained; call light within reach; will continue to monitor
--- NOTE | 2018-08-25 08:04 | NUR ---
resting in bed with eyes closed; resp even and unlabored; sr on monitor; mcgregor to gravity; no apparent distress noted; will continue to monitor
--- NOTE | 2018-08-25 09:00 | NUR ---
awake in bed; repositioned to left side; hob elevated at 45 deg; am meds administered via peg; tube feed completed with 8oz glucerna followed by 200 free water; mcgregor to gravity; o2 per nc; sr on monitor; oral care with toothette; RIJ flushed and patent with good blood aspirate noted from all lumens; #22 in lw flushed and patent; call light within reach; will continue to monitor
--- NOTE | 2018-08-25 09:50 | NUR ---
Dr Pate present at bedside to assess pt and discuss plan of care
--- NOTE | 2018-08-25 10:00 | NUR ---
report called to Kobe Vazquez RN
--- NOTE | 2018-08-25 10:21 | NUR ---
awake in bed; repositioned for comfort; lle elevated as per pt request for comfort; iv patent; no redness or edema noted at site; sr/pvc on monitor; mcgregor to gravity; call light within reach; will continue to monitor
--- NOTE | 2018-08-25 10:40 | NUR ---
pt transferred to med surg via bed with portable o2 in stable condition; pt belongings sent with pt; two blankets noted in room (ICU bed 2); pt deny blankets being his belongings; bedside update given to Kobe Vazquez RN;
--- NOTE | 2018-08-25 11:00 | NUR ---
PT CAME FROM ICU VIA BED BY COOPER AND [facility]MER. PT IN O2 2L/MIN VIA NC. PEG TUBE IN PLACE. NORIEGA IS PATENT WITH YELLOW URINE. PT IS A&O X3. RIJ AND 22 LW APPEARS HEALTHY. SAFETY PRECAUTIONS REINFORCED AND CALL LIGHT IN REACH.
--- NOTE | 2018-08-25 14:58 | NUR ---
HOB ELEVATED. PEG TUBE IN PLACE. RESIDUAL CHECKED 30ML GASTRIC/BILE NOTED. TUBE FEED COMPLETED WITH 8OZ GLUCERNA FOLLOWED BY 200ML FREE WATER WITH REGLAN MEDICATION. PT TOLERARED WELL. PT DENIES NEEDS AT THIS TIME. CALL LIGHT IN REACH.
--- NOTE | 2018-08-25 19:00 | NUR ---
RECEIVED REPORT FROM DAY SHIFT NURSE. PT RESTING IN BED WATCHING TV. NO COMPLAINTS THIS TIME. CALL ROJAS IN REACH. WILL CONTINUE TO MONITOR.
--- NOTE | 2018-08-25 21:13 | NUR ---
PT RESTING IN BED WATCHING TV. CHECKED PT PEG TUBE FOR PLACEMENT, RESIDUAL 60CC, GIVEN 1 GLUCERNA SHAKE, MEDS AND FLUSHED WITH 200CC OF WATER. PT TOLERATED WELL. ASSESMENT COMPLETED AT THIS TIME(SEE INTERVENTION) LUNG SOUNDS COARSE, HEART RATE NORMAL, BOWEL SOUNDS ACTIVE, KIMBERLY AREA TO BUTTOCKS, FORMER DUEDERM FELL OFF NEW ONE APPLIED. BARRIER CREAM APPLIED. PT VOCING NO COMPLAINTS AT THIS TIME. CALL ROJAS IN REACH. PT LEFT UPRIGHT IN BED. WILL CONTINUE TO MONITOR.
--- NOTE | 2018-08-26 | NUR ---
PT RESTING IN BED WITH EYS CLOSED NO S/S OF DISTRESS. CALL ROJAS IN REACH. WILL CONTINUE TO MONITOR.
[2018-08-26 00:16] VITALS: BP 135/81
--- NOTE | 2018-08-26 04:20 | NUR ---
PT RESTING IN BED WITH EYES CLOSED. BLOOD DRAWN THROUGH TRIPLE LUMEN. NORIEGA DRAINING TO GRAVITY. CALL ROJAS IN REACH. WILL CONTINUE TO MONITOR.
[2018-08-26 04:55] VITALS: BP 137/87
[2018-08-26 04:57] LABS: HEMATOCRIT 27.8 % (39.0-50.0); HEMOGLOBIN 8.8 g/dl (14.0-18.0); IMMATURE GRANULOCYTES 1.3 % (0.0-5.0); MEAN CELL VOLUME 87.4 fL CALC (80.0-100.0); MEAN CORPUSCULAR HGB 27.7 pG CALC (26.0-32.0); MEAN CORPUSCULAR HGB CONC 31.7 g/L CALC (32.0-36.0); NEUT# 6.23 thou/uL (1.82-7.42); RED BLOOD COUNT 3.18 mill/uL (4.70-6.10); RED CELL DISTRI WIDTH 16.7 % (11.5-15.5)
[2018-08-26 05:40] LABS: ALBUMIN 2.6 g/dL (3.2-5.0); ALKALINE PHOSPHATASE 74 u/l (38-126); ANION GAP 12 (6-22 (CALC)); BILIRUBIN, TOTAL 0.2 mg/dL (0.0-1.4); BUN 17 mg/dL (8-23); BUN/CREATININE RATIO 13 (12-20 (CALC)); CARBON DIOXIDE 21 mmol/l (22-30); CHLORIDE 110 mmol/l (95-108); CREATININE 1.3 mg/dL (0.7-1.3); GFR 53 ML/MIN (>=60 (CALC)); GFR FOR AFR.AMER. > 60 ML/MIN (>=60 (CALC)); MAGNESIUM 1.4 mg/dL (1.6-2.3); POTASSIUM 3.7 mmol/l (3.5-5.1); SGOT/AST 13 u/l (19-48); SODIUM 139 mmol/l (137-146); TOTAL PROTEIN 5.4 g/dL (6.3-8.2)
[2018-08-26 08:00] VITALS: BP 130/65
--- NOTE | 2018-08-26 08:45 | NUR ---
HOB ELEVATED. AM MEDICATIONS GIVEN VIA PEG TUBE WITH 100ML OF WATER FLUSH. PT TOLERATED WELL. DRESSING CHANGE ON PEG TUBE AND OLD YELLOW DRY CRUST NOTED. RIJ TRIPLE LUMEN APPEAR HEALTHY. PT IS A&O X3. PT DENIES PAIN AT THIS TIME. TELE IN PLACE. LUNGS SOUND COARSE. NORIEGA IS PATENT WITH QUANG URINE. PT TURN TO LEFT SIDE. DUODERM IN PLACE IN BUTTOCK AND BARRIER CREAM APPLIED. SAFETY PRECAUTION REINFORCED AND CALL LIGHT IN REACH.
--- NOTE | 2018-08-26 10:45 | NUR ---
DR. RODRIGUEZ AT BEDSIDE TO ASSESS PT.
[2018-08-26 11:30] VITALS: BP 139/65
--- NOTE | 2018-08-26 11:49 | NUR ---
PT IS RESTING IN BED WITH NO S/S OF DISTRESS NOTED. PT DENIES NEEDS AT THIS TIME. EXPLAIN TO PT THAT HIS TUBE FEEDING IS GOING TO INCREASE. PT VERBALIZED UNDERSTANING AND CALL LIGHT IN REACH.
--- NOTE | 2018-08-26 12:00 | NUR ---
PT IS EATING HIS LUNCH WITH NO S/S OF DISTRESS NOTED. PT DENIES NEEDS AT THIS TIME. CALL LIGHT IN REACH.
--- NOTE | 2018-08-26 14:00 | NUR ---
HOB ELEVATED. PEG TUBE IN PLACE. RESIDUAL CHECKED 30ML GASTRICE/BILE NOTED. TUBE FEED COMPLETED WITH 2 CANS OF 8OZ OF GLUCERNA 1.0 MOLLY FOLLOWED BY 120ML FREE WATER FLUSH. PT TOLERATED WELL. CALL LIGHT IN REACH.
[2018-08-26 16:26] VITALS: BP 146/73
--- NOTE | 2018-08-26 17:30 | NUR ---
HOB ELEVATED. PEG TUBE IN PLACE. PT STATED HE FELT FULL AND STATED THAT THE 2 CANS WAS A LOT FOR HIM. RESIDUAL CHECKED 65ML GASTRIC/BILE NOTED. TUBE FEED PT ONLY 4 OZ OF GLUCERNA AND 50ML OF WATER FLUSH PER PT REQUEST. PT DENIES ANY OTHER NEEDS AT THIS TIME. CALL LIGHT IN REACH.
[2018-08-26 19:39] VITALS: BP 138/72
--- NOTE | 2018-08-26 20:05 | NUR ---
ASSESSMENT IS COMPLTED: PT IS FINISHING GETTING A BATH. IV SITES ARE CDI. NO REDNESS OR EDEMA HR IS REG,PULSES ARE STRONG X4, ABD IS SOFT WITH ACTIVE BS. BREATH SOUNDS ARE COARSE AND DIMINSHED. TELE MONITOR IN PLACE. NORIEGA INTACT DRAINING QUANG UA WITH SEDIMENT. CONTINUE TO OBSERVE AND MONITOR. CALL ROJAS WITHIN REACH.
--- NOTE | 2018-08-26 21:00 | NUR ---
pt had 20cc of residual prior to feeding
--- NOTE | 2018-08-27 00:30 | NUR ---
PT IS RESTING IN BED WITH NO DISTRESS NOTED. IV SITE IS FREE FROM REDNESS OR EDEMA.
[2018-08-27 00:52] VITALS: BP 118/70
[2018-08-27 04:30] VITALS: BP 142/75
--- NOTE | 2018-08-27 04:30 | NUR ---
PT IS RESTING IN BED WITH NO DISTRESS NOTED. IV SITE IS FREE FROM REDNESS OR EDEMA.
[2018-08-27 06:14] LABS: HEMATOCRIT 29.6 % (39.0-50.0); HEMOGLOBIN 9.5 g/dl (14.0-18.0); IMMATURE GRANULOCYTES 1.4 % (0.0-5.0); MEAN CORPUSCULAR HGB 27.6 pG CALC (26.0-32.0); MEAN CORPUSCULAR HGB CONC 32.1 g/L CALC (32.0-36.0); NEUT# 6.42 thou/uL (1.82-7.42); RED BLOOD COUNT 3.44 mill/uL (4.70-6.10); RED CELL DISTRI WIDTH 16.8 % (11.5-15.5)
[2018-08-27 06:33] LABS: ALBUMIN 2.8 g/dL (3.2-5.0); ALKALINE PHOSPHATASE 77 u/l (38-126); ANION GAP 14 (6-22 (CALC)); BILIRUBIN, TOTAL 0.2 mg/dL (0.0-1.4); BUN 14 mg/dL (8-23); BUN/CREATININE RATIO 12 (12-20 (CALC)); CARBON DIOXIDE 18 mmol/l (22-30); CHLORIDE 109 mmol/l (95-108); CREATININE 1.2 mg/dL (0.7-1.3); GFR 58 ML/MIN (>=60 (CALC)); GFR FOR AFR.AMER. > 60 ML/MIN (>=60 (CALC)); MAGNESIUM 1.3 mg/dL (1.6-2.3); POTASSIUM 3.7 mmol/l (3.5-5.1); SGOT/AST 15 u/l (19-48); SODIUM 137 mmol/l (137-146); TOTAL PROTEIN 5.7 g/dL (6.3-8.2)
--- NOTE | 2018-08-27 07:00 | NUR ---
SHIFT REPORT FROM BRIGHT, PT SLEEPING BUT AROUSES TO VERBAL STIMUI, BREATHING EVEN AND NON-LABORED, O2 @ 2L VIA NC IN PLACE, TELE MONITOR IN PLACE, NORIEGA IN PLACE WITH YELLOW URINE, CALL ROJAS IN REACH.
[2018-08-27 09:00] VITALS: BP 136/62
[2018-08-27 11:56] VITALS: BP 122/63
--- NOTE | 2018-08-27 12:00 | NUR ---
INCONTINENT OF BOWELS, RODNEY CARE GIVEN WITH ASSIST OF 2 STAFF.
--- NOTE | 2018-08-27 15:14 | NUR ---
VANCOMYCIN TROUGH IS 17 WE WILL CONTINUE 1GRAM Q24H NEXT TROUGH WILL BE DRAWN ON 08/30/18@ 1030
--- NOTE | 2018-08-27 16:00 | NUR ---
RELAXING IN BED, RODNEY CARE GIVEN AFTER BOWEL INCONTINENCE, ALL NEEDS ADDRESSED.
[2018-08-27 16:05] VITALS: BP 145/76
--- NOTE | 2018-08-27 19:00 | NUR ---
RECIEVED REPORT FROM DAY NURSE, PT RESTING IN BED, NO S/S OF DISTRESS,NORIEGA DRAINING TO GRAVITY CLEAR YELLOW URINE. CALL ROJAS IN REACH. WILL CONTINUE TO MONITOR.
[2018-08-27 19:05] VITALS: BP 150/77
--- NOTE | 2018-08-27 21:25 | NUR ---
PT RESTING IN BED. ASESMENT COMPLETED AT THIS TIME( SEE INTERVENTIONS) LUNGS CLEAR/ DIMINISHED, HEART NORMAL, BOWEL SONDS ACTIVE, NO SWELLING OR EDEMA NOTED. DUEDURM TO BUTTOCKS CDI, TRIPPLE LUMEN IN PLACE, FLUSHES WELL.NORIEGA CATH DRAINING CLEAR YELLOW URINE. CALL ROJAS IN [facility]. WILL CONTINUE TO MONITOR.
--- NOTE | 2018-08-28 | NUR ---
PT ASLEEP AT THIS TIME. RESP. EVEN AND UNLABORED. CALL ROJAS IN REACH. WILL CONTINUE TO MONITOR.
[2018-08-28 00:08] VITALS: BP 137/78
--- NOTE | 2018-08-28 04:00 | NUR ---
PT RESTING QUIETLY IN BED. NO S/S OF DISTRESS NOTED. CALL ROJAS IN REACH. WILL CONTINUE TO MONITOR.
[2018-08-28 05:37] VITALS: BP 133/80
--- NOTE | 2018-08-28 06:26 | NUR ---
PT SLEEPING AT THIS TIME. AWOKEN FOR MORNING FEED. RESIDUAL WAS 50cc AND PT FELT FULL FEEDING HELD AT THIS TIME.
--- NOTE | 2018-08-28 07:05 | NUR ---
REPORT RECEIVED BY LAUREN. PT IS SLEEPING IN BED WITH NO S/S OF DISTRESS NOTED. CALL LIGHT IN REACH.
[2018-08-28 07:53] VITALS: BP 153/73
--- NOTE | 2018-08-28 08:00 | NUR ---
ASSESSMENT DONE TELE IN PLACE. PT IS A&OX3. PT DENIES PAIN AT THIS TIME. PEG TUBE IN PLACE. RIJ APPEARS HEALTHY. SAFETY PRECAUTIONS REINFORCED AND CALL LIGHT IN REACH.
--- NOTE | 2018-08-28 10:30 | NUR ---
HOB ELEVATED. PEG TUBE IN PLACE AND DRESSING. RESIDUAL 25ML. TUBE FEEDING OF 1 CAN OF GLUCERNA. PT TOLEREATED WELL. CALL LIGHT IN REACH.
--- NOTE | 2018-08-28 12:00 | NUR ---
IN ROOM VISITING WITH PT. PT DENIES NEEDS AT THIS TIME. CALL LIGHT IN REACH.
[2018-08-28 12:50] VITALS: BP 126/68
--- NOTE | 2018-08-28 15:30 | NUR ---
PEG TUBE IN PLACE. RESIDUAL 20ML. FEED PT 2 CANS OF GLUCERNA VIA TUBE. PT TOLERATED WELL. CALL LIGHT IN REACH.
[2018-08-28 15:36] VITALS: BP 132/64
--- NOTE | 2018-08-28 18:20 | NUR ---
RESIDUAL 55ML. PT STATED HE FELT FULL. PER PT REQUEST ONLY FEED PT 4 OZ OF GLUNCERNA. PT TOLERATED WELL. CALL LIGHT IN REACH.
[2018-08-28 19:50] VITALS: BP 121/62
--- NOTE | 2018-08-28 21:30 | NUR ---
PT RESTING IN BED WITH EYES CLOSED. NO DISTRESS NOTED AND EASILY AROUSABLE. O2 AT 2L AT BEDSIDE. ASSESMENT COMPLETED AT THIS TIME(SEE INTERVENTION) LUNG SOUNDS CLEAR/DIMINISHED, HERAT SOUNDS NORMAL, BS ACTIVE, NO SWELLING OR EDEMA NOTED. IV FLUSHES WELL.PT MEDICATED PER ORDER AT THIS TIME THROUGH PEG TUBE. PLACEMENT CHECKED, NO RESIDUAL, FEED HELD TILL LATER TIME DUE TO MED INSTRUCTIONS. PT REPOSITIONED AN TURNED. NORIEGA DRAINING CLEAR YELLOW URINE TO GRAVITY. CALL ROJAS IN REACH. WILL CONTINUE TO MONITOR.
--- NOTE | 2018-08-29 | NUR ---
FEED DUE AT THIS TIME. PLACEMENT CHECKED, RESIDUAL 40 AND PT FEELS FULL. FEEDING HELD AT THIS TIME. MEDICATED PER ORDER. NO OTHER NEEDS AT THIS TIME LIGHTS OFF AND PT RESTING WITH EYES CLOSED. CALL ROJAS IN REACH. WILL CONTINUE TO MONITOR.
[2018-08-29 00:18] VITALS: BP 134/70
--- NOTE | 2018-08-29 04:00 | NUR ---
PT ASLEEP AT THIS TIME NO S/S OF DISTRESS NOTED. CALL ROJAS IN REACH. WILL CONTINUE TO MONITOR.
[2018-08-29 04:36] VITALS: BP 123/66
[2018-08-29 05:45] LABS: HEMATOCRIT 29.9 % (39.0-50.0); HEMOGLOBIN 9.9 g/dl (14.0-18.0); IMMATURE GRANULOCYTES 1.1 % (0.0-5.0); MEAN CELL VOLUME 84.5 fL CALC (80.0-100.0); MEAN CORPUSCULAR HGB CONC 33.1 g/L CALC (32.0-36.0); NEUT# 7.37 thou/uL (1.82-7.42); RED BLOOD COUNT 3.54 mill/uL (4.70-6.10); RED CELL DISTRI WIDTH 16.6 % (11.5-15.5)
[2018-08-29 06:00] LABS: ALBUMIN 2.9 g/dL (3.2-5.0); ALKALINE PHOSPHATASE 84 u/l (38-126); ANION GAP 15 (6-22 (CALC)); BILIRUBIN, TOTAL 0.3 mg/dL (0.0-1.4); BUN 14 mg/dL (8-23); BUN/CREATININE RATIO 12 (12-20 (CALC)); CARBON DIOXIDE 20 mmol/l (22-30); CHLORIDE 105 mmol/l (95-108); CREATININE 1.1 mg/dL (0.7-1.3); GFR > 60 ML/MIN (>=60 (CALC)); GFR FOR AFR.AMER. > 60 ML/MIN (>=60 (CALC)); MAGNESIUM 1.2 mg/dL (1.6-2.3); POTASSIUM 3.9 mmol/l (3.5-5.1); SGOT/AST 20 u/l (19-48); SODIUM 136 mmol/l (137-146)
--- NOTE | 2018-08-29 06:00 | NUR ---
PT REFUSED FEED AT THIS TIME.
--- NOTE | 2018-08-29 07:20 | NUR ---
REPORT RECEIVED FROM SHELTON JAIN;PT APPEARS TO BE SLEEPING IN SEMI FOWLERS POSITION;NO S/S OF DISTRESS NOTED;RESPIRATIONS EVEN AND UNLABORED ON RA;TELE MONITORING IN PLACE;ACCUCHECK 97, NO COVERAGE NEEDED THIS MORNING;FALL PRECAUTIONS IN PLACE WITH BED IN THE LOWEST POSITION AND CALL LIGHT IN REACH;WILL CONTINUE TO MONITOR
[2018-08-29 09:04] VITALS: BP 131/67
--- NOTE | 2018-08-29 09:05 | NUR ---
PT RESTING IN SEMI FOWLERS POSITION;VS OBTAINED AND ASSESSMENT COMPLETED;PT DENIES ANY CURRENT PAIN OR DISCOMFORTS,PAIN SCALE AND REPORTING EDUCATED;RESPIRATIONS EVEN AND UNLABORED,SHALLOW ON O2 @ 2L VIA NC;NON-PRODUCTIVE COUGH NOTED AT TIMES;ABDOMEN SOFT ON PALPATION AND ACTIVE IN ALL 4 QUADRANTS;WEAK PEDAL PULSES;#22G TO LEFT WRIST FLUSHED AND PATENT,SITE APPEARS HEALTHY;NORIEGA CATHETER PATENT DRAINING CLEAR/YELLOW URINE,LEG STRAP IN PLACE;PEG TUBE NOTED,UPON ASSESSMENT 5ML OF RESIDUAL OBTAINED;TELE MONITORING IN PLACE;IT SHOULD BE NOTED THAT PT IS A Q2 TURN,WOUND TO LEFT BUTTOCK.DUEDERM IN PLACE AND PICTURES IN CHART;PT DENIES ANY CURRENT NEEDS AT THIS TIME AND IS ENCOURAGED TO CALL FOR ASSISTANCE IF NEEDED;FALL PRECAUTIONS IN PLACE WITH CALL LIGHT IN REACH;WILL CONTINUE TO MONITOR
--- NOTE | 2018-08-29 09:13 | NUR ---
PT WAS SEEN FOR FUNCTIONAL ACTIVITY AND THEREX. HE GOT OOB FROM SUPINE TO SITTING WITH MOD. ASSIST ON ROLLING, SCOOTING AND LIFTING B LE OFF BED. HE WAS THEN GIVEN VERBAL CUES TO STAND UP FROM SITTING WITH MOD. A AND RW TO MAINTAIN STATIC STANDING. PT WAS ABLE TO TOLERATE STANDING FOR A VERY SHORT TIME <20 SECONDS. [id number] WAS DONE X 10 REPS WITH MOD A AND VERBAL CUES ON HAND PLACEMENT AND PROPER STANCE. PRIOR TO REPOSITIONING PT ON BED, HE WAS INSTRUCTED TO TAKE SIDE STEPS ON STANDING POSITION WHICH HE WAS UNABLE TO PERFORM. HE WAS THEN OFFERED MAX A OF 2 IN PULLING THE DRAWSHEET TO REPOSITION HIM ON BED. GENERALIZED WEAKNESS AND SOB WERE NOTED DURING AND AFTER THE ACTIVITIES. O2 VIA NASAL CANNULA WAS REATTACHED SET AT 2L. LEFT PT COMFORTABLY RESTING IN THE BED WITH HOB SLIGHTLY ELEVATED. CALL ROJAS BESIDE HIM. FALL PRECAUTIONS REINFORCED.
--- NOTE | 2018-08-29 10:58 | NUR ---
AT BEDSIDE DISCUSSING POC INCLUDING D/C TO [facility].
[2018-08-29 11:00] VITALS: BP 137/76
--- NOTE | 2018-08-29 11:30 | NUR ---
PT RESTING IN RIGHT SIDE LAYING POSITION;RESPIRATIONS EVEN AND UNLABORED ON O2 @ 2L VIA NC;PT DENIES ANY CURRENT PAIN OR NEEDS;IV SITE TO LEFT WRIST REMAINS PATENT;TELE MONITORING IN PLACE;PT TOLERATED FEED THROUGH PEG TUBE WELL;ACCUCHECK 94, NO COVERAGE NEEDED;NORIEGA CATHETER REMAINS PATENT HANGING TO GRAVITY;PT ENCOURAGED TO CALL FOR ASSISTANCE IF NEEDED;FALL PRECAUTIONS IN PLACE WITH CALL LIGHT IN REACH;WILL CONTINUE TO MONITOR
[2018-08-29] MEDS ORDERED: CIPROFLOXACIN500 M1 VT (14:53)
[2018-08-29] MEDS ORDERED: METOCLOPRAMIDE10 MG PO (14:54)
[2018-08-29] MEDS ORDERED: PROTONIX40 M3 IV (14:54)
[2018-08-29] MEDS ORDERED: ALLOPURINOL100 MG PO (14:55)
--- NOTE | 2018-08-29 15:20 | NUR ---
PT RESTING IN SEMI FOWLERS POSITION;PT RE-POSITIONED IN RIGHT SIDE LAYING POSITION;RESPIRATIONS EVEN AND UNLABORED ON O2 @ 2L VIA NC;PT DENIES ANY CURRENT PAIN OR DISCOMFORTS;TELE MONITORING IN PLACE;PT REFUSED SECOND BOTTLE OF GLUCERNA,BUT TOLERATED 1 CAN WELL;NORIEGA CATHETER REMAINS IN PLACE DRAINING TO GRAVITY;PT ENCOURAGED TO CALL FOR ASSISTANCE IF NEEDED;FALL PRECAUTIONS IN PLACE WITH CALL LIGHT IN REACH;WILL CONTINUE TO MONITOR
[2018-08-29 15:51] VITALS: BP 136/74
--- NOTE | 2018-08-29 17:15 | NUR ---
PT RESTING IN SEMI FOWLERS POSITION;TRANSPORTATION FOR [facility] AT BEDSIDE;IV SITE REMOVED WITH CATHETER INTACT;PT DENIES ANY ADDITIONAL NEEDS AT THIS TIME;WHEELCHAIR PROVIDED FOR D/C.
--- NOTE | 2018-08-29 17:23 | NUR ---
Discharge instructions given. Patient verbalizes understanding of same. Discharged in stable condition via [facility] with *Other. All belongings sent with pt. Pt transported via in stable condition to [facility] and rehab.
--- NOTE | 2018-08-29 17:52 | NUR ---
REPORT CALLED TO UNA LEVINE AT [facility].
== END 2018-08-29 17:23 | DRG 177 ==
LOC: ED 09:25 → ED-I 09:31 → ED 12:12 → ICU 12:13 → MS2 08-25 11:05
PROVIDERS: Family Medicine; ADMIT Internal Medicine Nephrology; ATTEND Internal Medicine Nephrology
PROC: 0T9B70Z Drainage of Bladder with Drainage Device, Via Natural or Artificial Opening (ICD-10-PCS; principal; 2018-08-22)
PROC: 02HV33Z Insertion of Infusion Device into Superior Vena Cava, Percutaneous Approach (ICD-10-PCS; 2018-08-22)
DX: J69.0 Pneumonitis due to inhalation of food and vomit (principal); G93.41 Metabolic encephalopathy; N39.0 Urinary tract infection, site not specified; N17.9 Acute kidney failure, unspecified; I48.91 Unspecified atrial fibrillation; I12.9 Hypertensive chronic kidney disease with stage 1 through stage 4 chronic kidney disease, or unspecified chronic kidney disease; E11.22 Type 2 diabetes mellitus with diabetic chronic kidney disease; N18.3 Chronic kidney disease, stage 3 (moderate); D63.8 Anemia in other chronic diseases classified elsewhere; E11.43 Type 2 diabetes mellitus with diabetic autonomic (poly)neuropathy; K31.84 Gastroparesis; I69.391 Dysphagia following cerebral infarction; R13.10 Dysphagia, unspecified; F32.9 Major depressive disorder, single episode, unspecified; N40.0 Benign prostatic hyperplasia without lower urinary tract symptoms; E78.5 Hyperlipidemia, unspecified; B95.2 Enterococcus as the cause of diseases classified elsewhere; Z93.1 Gastrostomy status; Z79.4 Long term (current) use of insulin
CPT/HCPCS: J1650; J3475; S0164

== ENCOUNTER 2018-09-15 13:51 | Inpatient (IN) | payer MEDICARE, OTHER ==
[~2018-09-15] VITALS: Ht 175.3 cm; Wt 74.9 kg
[2018-09-15] VITALS (8 sets, daily range): BP systolic 116–160; BP diastolic 52–67
[~2018-09-15 13:51] MED LIST changes: +ALLOPURINOL100 MG PO; +CIPROFLOXACIN500 M1 VT; +DILTIAZEM120 M3 EN; +ESCITALOPRAM OXA5 MG PO; +FINASTERIDE5 MG PO; +FIRST-OMEPRAZ2 MG/ML PO; +HUMALOG100 UNIT/M SC; +MEGESTROL AC PO; +METOCLOPRAMIDE10 MG PO; +METOPROL TAR25 MG PO; +MULTI VIT PO; +ONDANSETRON HCL4 MG PO; +PROTONIX40 M3 IV; +SPIRIVA HANDIH18 MCG IN; +TAMSULOSIN HCL0.4 MG PO
[2018-09-15 14:21] LABS: HEMATOCRIT 34.5 % (39.0-50.0); HEMOGLOBIN 10.9 g/dl (14.0-18.0); IMMATURE GRANULOCYTES 0.2 % (0.0-5.0); MEAN CELL VOLUME 88.5 fL CALC (80.0-100.0); MEAN CORPUSCULAR HGB 27.9 pG CALC (26.0-32.0); MEAN CORPUSCULAR HGB CONC 31.6 g/L CALC (32.0-36.0); NEUT# 9.24 thou/uL (1.82-7.42); RED BLOOD COUNT 3.9 mill/uL (4.70-6.10); RED CELL DISTRI WIDTH 18.3 % (11.5-15.5)
[2018-09-15] MEDS ORDERED: SPIRIVA HANDIHALER IN (14:23)
[2018-09-15] MEDS ORDERED: HUMALOG KW100 UNIT/M SC (14:40)
[2018-09-15 14:50] LABS: ANION GAP 20 (6-22 (CALC)); BUN 35 mg/dL (8-23); BUN/CREATININE RATIO 23 (12-20 (CALC)); CARBON DIOXIDE 22 mmol/l (22-30); CHLORIDE 104 mmol/l (95-108); CREATININE 1.5 mg/dL (0.7-1.3); GFR 45 ML/MIN (>=60 (CALC)); GFR FOR AFR.AMER. 54 ML/MIN (>=60 (CALC)); SODIUM 141 mmol/l (137-146)
[2018-09-15 14:51] LABS: POTASSIUM 5.1 mmol/l (3.5-5.1)
[2018-09-15 15:19] LABS: URINE BILIRUBIN - DIPSTICK NEGATIVE (NEGATIVE); URINE BLOOD DIPSTICK MODERATE (NEGATIVE); URINE COLOR YELLOW; URINE GLUCOSE - DIPSTICK NEGATIVE (NEGATIVE); URINE KETONE 15 mg/dL (NEGATIVE); URINE PH 5.5 (4.5-8.0); URINE PROTEIN - DIPSTICK >=300 mg/dL (NEG-TRACE); URINE UROBILINOGEN - DIPSTICK 0.2 E.U./dL (0.2)
[2018-09-15 15:20] LABS: URINE LEUK ESTERASE MODERATE (NEGATIVE); URINE NITRITE - DIPSTICK POSITIVE (Negative)
[2018-09-15 15:21] LABS: URINE BACTERIA MODERATE hpf; URINE SQUAMOUS EPITHELIAL CELL FEW EPI/hpf (0-FEW); URINE WBC 20-50 WBC/hpf (0-5)
[2018-09-16] VITALS (11 sets, daily range): BP systolic 108–133; BP diastolic 53–61
[2018-09-16 06:01] LABS: HEMATOCRIT 29.8 % (39.0-50.0); HEMOGLOBIN 9.5 g/dl (14.0-18.0); IMMATURE GRANULOCYTES 0.3 % (0.0-5.0); MEAN CELL VOLUME 87.9 fL CALC (80.0-100.0); MEAN CORPUSCULAR HGB CONC 31.9 g/L CALC (32.0-36.0); RED BLOOD COUNT 3.39 mill/uL (4.70-6.10); RED CELL DISTRI WIDTH 18.2 % (11.5-15.5)
[2018-09-16 06:10] LABS: ALBUMIN 3.2 g/dL (3.2-5.0); BILIRUBIN, TOTAL 0.5 mg/dL (0.0-1.4); CREATININE 1.4 mg/dL (0.7-1.3); MAGNESIUM 1.5 mg/dL (1.6-2.3); POTASSIUM 4.8 mmol/l (3.5-5.1); TOTAL PROTEIN 6.1 g/dL (6.3-8.2)
[2018-09-16 06:31] LABS: PLATELET COUNT 253 thou/uL (130-400)
[2018-09-16 06:32] LABS: BAND 22 % (0-8); MANUAL DIFFERENTIAL YES; MICROCYTOSIS FEW; OVALOCYTES FEW; PLATELET ESTIMATE NORMAL; SCHISTOCYTES FEW
[2018-09-16 11:57] LABS: URINE BILIRUBIN - DIPSTICK NEGATIVE (NEGATIVE); URINE BLOOD DIPSTICK LARGE (NEGATIVE); URINE COLOR YELLOW; URINE GLUCOSE - DIPSTICK NEGATIVE (NEGATIVE); URINE KETONE NEGATIVE (NEGATIVE); URINE LEUK ESTERASE MODERATE (Negative); URINE NITRITE - DIPSTICK NEGATIVE (Negative); URINE PH 5.5 (4.5-8.0); URINE PROTEIN - DIPSTICK TRACE mg/dL (NEG-TRACE); URINE SPECIFIC GRAVITY 1.025; URINE UROBILINOGEN - DIPSTICK 0.2 E.U./dL (0.2)
[2018-09-16 12:04] LABS: URINE CLARITY SL CLOUDY
[2018-09-16 12:05] LABS: URINE BACTERIA FEW hpf; URINE EPITHELIAL CELLS FEW EPI/hpf (0-FEW)
[2018-09-17] VITALS (12 sets, daily range): BP systolic 120–149; BP diastolic 54–68
[2018-09-17 06:18] LABS: HEMATOCRIT 27.7 % (39.0-50.0); HEMOGLOBIN 8.8 g/dl (14.0-18.0); IMMATURE GRANULOCYTES 0.5 % (0.0-5.0); MEAN CELL VOLUME 87.9 fL CALC (80.0-100.0); MEAN CORPUSCULAR HGB 27.9 pG CALC (26.0-32.0); MEAN CORPUSCULAR HGB CONC 31.8 g/L CALC (32.0-36.0); PLATELET COUNT 242 thou/uL (130-400); RED BLOOD COUNT 3.15 mill/uL (4.70-6.10); RED CELL DISTRI WIDTH 18.4 % (11.5-15.5)
[2018-09-17 06:42] LABS: ALBUMIN 3.1 g/dL (3.2-5.0); ALKALINE PHOSPHATASE 90 u/l (38-126); ANION GAP 14 (6-22 (CALC)); BILIRUBIN, TOTAL 0.3 mg/dL (0.0-1.4); BUN 33 mg/dL (8-23); BUN/CREATININE RATIO 26 (12-20 (CALC)); CARBON DIOXIDE 23 mmol/l (22-30); CHLORIDE 110 mmol/l (95-108); CREATININE 1.3 mg/dL (0.7-1.3); GFR 53 ML/MIN (>=60 (CALC)); GFR FOR AFR.AMER. > 60 ML/MIN (>=60 (CALC)); MAGNESIUM 1.6 mg/dL (1.6-2.3); POTASSIUM 4.2 mmol/l (3.5-5.1); SGOT/AST 16 u/l (19-48); SODIUM 144 mmol/l (137-146); TOTAL PROTEIN 5.9 g/dL (6.3-8.2)
[2018-09-17 06:56] LABS: BAND 15 % (0-8); HYPOCHROMIA FEW; MANUAL DIFFERENTIAL YES; MICROCYTOSIS FEW
[2018-09-17 06:57] LABS: PLATELET ESTIMATE NORMAL; SCHISTOCYTES FEW
[2018-09-18] VITALS (7 sets, daily range): BP systolic 131–150; BP diastolic 62–76
[2018-09-18 05:43] LABS: HEMATOCRIT 29.9 % (39.0-50.0); HEMOGLOBIN 9.4 g/dl (14.0-18.0); IMMATURE GRANULOCYTES 0.9 % (0.0-5.0); MEAN CELL VOLUME 87.9 fL CALC (80.0-100.0); MEAN CORPUSCULAR HGB 27.6 pG CALC (26.0-32.0); MEAN CORPUSCULAR HGB CONC 31.4 g/L CALC (32.0-36.0); NEUT# 13.19 thou/uL (1.82-7.42); RED BLOOD COUNT 3.4 mill/uL (4.70-6.10); RED CELL DISTRI WIDTH 18.3 % (11.5-15.5)
[2018-09-18 06:14] LABS: ALBUMIN 2.9 g/dL (3.2-5.0); ALKALINE PHOSPHATASE 97 u/l (38-126); AMYLASE < 30 u/l (30-110); ANION GAP 14 (6-22 (CALC)); BILIRUBIN, TOTAL 0.3 mg/dL (0.0-1.4); BUN 25 mg/dL (8-23); BUN/CREATININE RATIO 23 (12-20 (CALC)); CARBON DIOXIDE 24 mmol/l (22-30); CHLORIDE 109 mmol/l (95-108); CREATININE 1.1 mg/dL (0.7-1.3); GFR > 60 ML/MIN (>=60 (CALC)); GFR FOR AFR.AMER. > 60 ML/MIN (>=60 (CALC)); LIPASE 30 u/l (23-300); MAGNESIUM 1.7 mg/dL (1.6-2.3); POTASSIUM 4.1 mmol/l (3.5-5.1); SGOT/AST 14 u/l (19-48); SODIUM 143 mmol/l (137-146); TOTAL PROTEIN 5.7 g/dL (6.3-8.2)
[2018-09-19] VITALS (9 sets, daily range): BP systolic 118–165; BP diastolic 64–81
[2018-09-19 06:01] LABS: HEMATOCRIT 29.2 % (39.0-50.0); HEMOGLOBIN 9.3 g/dl (14.0-18.0); IMMATURE GRANULOCYTES 0.7 % (0.0-5.0); MEAN CELL VOLUME 86.9 fL CALC (80.0-100.0); MEAN CORPUSCULAR HGB 27.7 pG CALC (26.0-32.0); MEAN CORPUSCULAR HGB CONC 31.8 g/L CALC (32.0-36.0); NEUT# 12.22 thou/uL (1.82-7.42); RED BLOOD COUNT 3.36 mill/uL (4.70-6.10)
[2018-09-19 06:24] LABS: ALBUMIN 2.8 g/dL (3.2-5.0); ALKALINE PHOSPHATASE 106 u/l (38-126); AMYLASE < 30 u/l (30-110); ANION GAP 15 (6-22 (CALC)); BILIRUBIN, TOTAL 0.3 mg/dL (0.0-1.4); BUN 20 mg/dL (8-23); BUN/CREATININE RATIO 21 (12-20 (CALC)); CARBON DIOXIDE 24 mmol/l (22-30); CHLORIDE 104 mmol/l (95-108); GFR > 60 ML/MIN (>=60 (CALC)); GFR FOR AFR.AMER. > 60 ML/MIN (>=60 (CALC)); LIPASE 31 u/l (23-300); MAGNESIUM 1.6 mg/dL (1.6-2.3); POTASSIUM 4.2 mmol/l (3.5-5.1); SGOT/AST 15 u/l (19-48); SODIUM 139 mmol/l (137-146); TOTAL PROTEIN 5.6 g/dL (6.3-8.2)
[2018-09-20 04:17] VITALS: BP 155/83
[2018-09-20 06:00] LABS: HEMATOCRIT 32.6 % (39.0-50.0); HEMOGLOBIN 10.5 g/dl (14.0-18.0); IMMATURE GRANULOCYTES 1.7 % (0.0-5.0); MEAN CELL VOLUME 86.5 fL CALC (80.0-100.0); MEAN CORPUSCULAR HGB 27.9 pG CALC (26.0-32.0); MEAN CORPUSCULAR HGB CONC 32.2 g/L CALC (32.0-36.0); NEUT# 9.96 thou/uL (1.82-7.42); RED BLOOD COUNT 3.77 mill/uL (4.70-6.10); RED CELL DISTRI WIDTH 17.8 % (11.5-15.5)
[2018-09-20 06:07] LABS: ALBUMIN 3.1 g/dL (3.2-5.0); ALKALINE PHOSPHATASE 103 u/l (38-126); ANION GAP 18 (6-22 (CALC)); BILIRUBIN, TOTAL 0.4 mg/dL (0.0-1.4); BUN 18 mg/dL (8-23); BUN/CREATININE RATIO 20 (12-20 (CALC)); CARBON DIOXIDE 22 mmol/l (22-30); CHLORIDE 102 mmol/l (95-108); CREATININE 0.9 mg/dL (0.7-1.3); GFR > 60 ML/MIN (>=60 (CALC)); GFR FOR AFR.AMER. > 60 ML/MIN (>=60 (CALC)); MAGNESIUM 1.6 mg/dL (1.6-2.3); POTASSIUM 4.6 mmol/l (3.5-5.1); SGOT/AST 26 u/l (19-48); SODIUM 137 mmol/l (137-146); TOTAL PROTEIN 5.9 g/dL (6.3-8.2)
[2018-09-20 09:33] VITALS: BP 149/70
[2018-09-20 11:20] VITALS: BP 161/65
[2018-09-20 15:45] VITALS: BP 145/79
[2018-09-20 20:25] VITALS: BP 135/70
[2018-09-21 00:17] VITALS: BP 116/59
[2018-09-21 04:12] VITALS: BP 117/58
[2018-09-21 06:26] LABS: HEMATOCRIT 28.3 % (39.0-50.0); HEMOGLOBIN 9.3 g/dl (14.0-18.0); IMMATURE GRANULOCYTES 3.2 % (0.0-5.0); MEAN CELL VOLUME 84.5 fL CALC (80.0-100.0); MEAN CORPUSCULAR HGB 27.8 pG CALC (26.0-32.0); MEAN CORPUSCULAR HGB CONC 32.9 g/L CALC (32.0-36.0); NEUT# 8.07 thou/uL (1.82-7.42); RED BLOOD COUNT 3.35 mill/uL (4.70-6.10); RED CELL DISTRI WIDTH 17.7 % (11.5-15.5)
[2018-09-21 06:38] LABS: ALBUMIN 2.8 g/dL (3.2-5.0); ALKALINE PHOSPHATASE 94 u/l (38-126); ANION GAP 16 (6-22 (CALC)); BILIRUBIN, TOTAL 0.3 mg/dL (0.0-1.4); BUN 19 mg/dL (8-23); BUN/CREATININE RATIO 21 (12-20 (CALC)); CARBON DIOXIDE 21 mmol/l (22-30); CHLORIDE 102 mmol/l (95-108); CREATININE 0.9 mg/dL (0.7-1.3); GFR > 60 ML/MIN (>=60 (CALC)); GFR FOR AFR.AMER. > 60 ML/MIN (>=60 (CALC)); MAGNESIUM 1.6 mg/dL (1.6-2.3); POTASSIUM 4.6 mmol/l (3.5-5.1); SGOT/AST 25 u/l (19-48); SODIUM 134 mmol/l (137-146); TOTAL PROTEIN 5.5 g/dL (6.3-8.2)
[2018-09-21 09:13] VITALS: BP 119/52
[2018-09-21 16:15] VITALS: BP 147/71
[2018-09-21 19:00] VITALS: BP 121/65
[2018-09-22] VITALS (7 sets, daily range): BP systolic 104–153; BP diastolic 60–75
[2018-09-22 05:30] LABS: HEMATOCRIT 28.3 % (39.0-50.0); HEMOGLOBIN 9.1 g/dl (14.0-18.0); IMMATURE GRANULOCYTES 3.5 % (0.0-5.0); MEAN CELL VOLUME 85.2 fL CALC (80.0-100.0); MEAN CORPUSCULAR HGB 27.4 pG CALC (26.0-32.0); MEAN CORPUSCULAR HGB CONC 32.2 g/L CALC (32.0-36.0); NEUT# 6.74 thou/uL (1.82-7.42); RED BLOOD COUNT 3.32 mill/uL (4.70-6.10); RED CELL DISTRI WIDTH 17.7 % (11.5-15.5)
[2018-09-22 05:39] LABS: ANION GAP 15 (6-22 (CALC)); BUN 22 mg/dL (8-23); BUN/CREATININE RATIO 26 (12-20 (CALC)); CARBON DIOXIDE 21 mmol/l (22-30); CHLORIDE 101 mmol/l (95-108); CREATININE 0.9 mg/dL (0.7-1.3); GFR > 60 ML/MIN (>=60 (CALC)); GFR FOR AFR.AMER. > 60 ML/MIN (>=60 (CALC)); MAGNESIUM 1.7 mg/dL (1.6-2.3); POTASSIUM 4.6 mmol/l (3.5-5.1); SODIUM 133 mmol/l (137-146)
[2018-09-23 00:10] VITALS: BP 124/75
[2018-09-23 04:46] VITALS: BP 125/73
[2018-09-23 08:42] VITALS: BP 118/42
[2018-09-23 12:21] VITALS: BP 169/80
[2018-09-23 14:50] VITALS: BP 131/63
[2018-09-23 19:00] VITALS: BP 128/53
[2018-09-23 21:00] LABS: URINE BILIRUBIN - DIPSTICK NEGATIVE (NEGATIVE); URINE BLOOD DIPSTICK NEGATIVE (NEGATIVE); URINE COLOR YELLOW; URINE GLUCOSE - DIPSTICK NEGATIVE (NEGATIVE); URINE KETONE NEGATIVE (NEGATIVE); URINE LEUK ESTERASE NEGATIVE (Negative); URINE NITRITE - DIPSTICK NEGATIVE (Negative); URINE PROTEIN - DIPSTICK TRACE mg/dL (NEG-TRACE); URINE UROBILINOGEN - DIPSTICK 0.2 E.U./dL (0.2)
[2018-09-23 21:02] LABS: URINE CLARITY CLEAR
[2018-09-23 21:27] LABS: C. DIFFICILE TOXIN A&B NEGATIVE (NEGATIVE)
[2018-09-24] VITALS (7 sets, daily range): BP systolic 107–158; BP diastolic 64–72
[2018-09-24 05:54] LABS: HEMATOCRIT 29.5 % (39.0-50.0); HEMOGLOBIN 9.6 g/dl (14.0-18.0); IMMATURE GRANULOCYTES 1.9 % (0.0-5.0); MEAN CELL VOLUME 85.3 fL CALC (80.0-100.0); MEAN CORPUSCULAR HGB 27.7 pG CALC (26.0-32.0); MEAN CORPUSCULAR HGB CONC 32.5 g/L CALC (32.0-36.0); NEUT# 12.13 thou/uL (1.82-7.42); RED BLOOD COUNT 3.46 mill/uL (4.70-6.10); RED CELL DISTRI WIDTH 17.6 % (11.5-15.5)
[2018-09-24 06:29] LABS: ALBUMIN 2.9 g/dL (3.2-5.0); ALKALINE PHOSPHATASE 115 u/l (38-126); ANION GAP 17 (6-22 (CALC)); BILIRUBIN, TOTAL 0.3 mg/dL (0.0-1.4); BUN 23 mg/dL (8-23); BUN/CREATININE RATIO 28 (12-20 (CALC)); CARBON DIOXIDE 20 mmol/l (22-30); CHLORIDE 102 mmol/l (95-108); CREATININE 0.8 mg/dL (0.7-1.3); GFR > 60 ML/MIN (>=60 (CALC)); GFR FOR AFR.AMER. > 60 ML/MIN (>=60 (CALC)); MAGNESIUM 1.7 mg/dL (1.6-2.3); POTASSIUM 4.8 mmol/l (3.5-5.1); SGOT/AST 42 u/l (19-48); SODIUM 133 mmol/l (137-146); TOTAL PROTEIN 5.7 g/dL (6.3-8.2)
[2018-09-25 04:25] VITALS: BP 132/72
[2018-09-25 08:19] VITALS: BP 120/53
[2018-09-25 11:40] VITALS: BP 100/58
[2018-09-25] MEDS ORDERED: CLINDAMYCIN300 M1 PO (14:11)
[2018-09-25] MEDS ORDERED: METOCLOPRAMIDE10 MG PO (14:12)
[2018-09-25 15:05] VITALS: BP 137/59
== END 2018-09-25 17:51 | DRG 871 ==
LOC: ED 13:51 → ED-I 15:09 → ED 15:31 → ICU 15:32 → MS2 09-16 10:18
PROVIDERS: Family Medicine; Nurse Practitioner Family; ADMIT Internal Medicine Nephrology; ATTEND Internal Medicine Nephrology
PROC: 5A09357 Assistance with Respiratory Ventilation, Less than 24 Consecutive Hours, Continuous Positive Airway Pressure (ICD-10-PCS; principal; 2018-09-15)
PROC: 0T9B70Z Drainage of Bladder with Drainage Device, Via Natural or Artificial Opening (ICD-10-PCS; 2018-09-24)
DX: A41.9 Sepsis, unspecified organism (principal); J96.00 Acute respiratory failure, unspecified whether with hypoxia or hypercapnia; J69.0 Pneumonitis due to inhalation of food and vomit; J18.9 Pneumonia, unspecified organism; E46 Unspecified protein-calorie malnutrition; N39.0 Urinary tract infection, site not specified; I69.954 Hemiplegia and hemiparesis following unspecified cerebrovascular disease affecting left non-dominant side; R65.20 Severe sepsis without septic shock; F32.9 Major depressive disorder, single episode, unspecified; K21.9 Gastro-esophageal reflux disease without esophagitis; R13.10 Dysphagia, unspecified; E11.22 Type 2 diabetes mellitus with diabetic chronic kidney disease; I12.9 Hypertensive chronic kidney disease with stage 1 through stage 4 chronic kidney disease, or unspecified chronic kidney disease; N18.3 Chronic kidney disease, stage 3 (moderate); N40.1 Benign prostatic hyperplasia with lower urinary tract symptoms; R33.8 Other retention of urine; E78.5 Hyperlipidemia, unspecified; R00.0 Tachycardia, unspecified; E11.43 Type 2 diabetes mellitus with diabetic autonomic (poly)neuropathy; K31.84 Gastroparesis; B96.20 Unspecified Escherichia coli [E. coli] as the cause of diseases classified elsewhere; Z16.12 Extended spectrum beta lactamase (ESBL) resistance; Y95 Nosocomial condition; Z93.1 Gastrostomy status; Z68.25 Body mass index [BMI] 25.0-25.9, adult; Z86.718 Personal history of other venous thrombosis and embolism; I69.991 Dysphagia following unspecified cerebrovascular disease; Z95.828 Presence of other vascular implants and grafts; I69.992 Facial weakness following unspecified cerebrovascular disease
CPT/HCPCS: S0164

== ENCOUNTER 2018-11-13 11:12 | Inpatient (IN) | payer MEDICARE, OTHER ==
[~2018-11-13] VITALS: Ht 175.3 cm; Wt 76.0 kg
[~2018-11-13 11:12] MED LIST changes: +CLINDAMYCIN300 M1 PO; -DILTIAZEM120 M3 EN; +DILTIAZEM30 MG PEG; +ESCITALOPRAM OX10 MG PEG; -ESCITALOPRAM OXA5 MG PO; +HUMALOG KW100 UNIT/M SC; +METOPROL TAR25 MG PEG; -METOPROL TAR25 MG PO; +MULTI VIT PEG; -MULTI VIT PO; +ONDANSETRON HCL4 MG PEG; -ONDANSETRON HCL4 MG PO; +SPIRIVA HANDIHALER IN; +TAMSULOSIN HCL0.4 MG PEG; -TAMSULOSIN HCL0.4 MG PO
[2018-11-13 11:59] LABS: HEMATOCRIT 34.3 % (39.0-50.0); HEMOGLOBIN 10.6 g/dl (14.0-18.0); IMMATURE GRANULOCYTES 0.5 % (0.0-5.0); MEAN CELL VOLUME 90.3 fL CALC (80.0-100.0); MEAN CORPUSCULAR HGB 27.9 pG CALC (26.0-32.0); MEAN CORPUSCULAR HGB CONC 30.9 g/L CALC (32.0-36.0); NEUT# 20.57 thou/uL (1.82-7.42); RED BLOOD COUNT 3.8 mill/uL (4.70-6.10); RED CELL DISTRI WIDTH 16.1 % (11.5-15.5)
[2018-11-13 12:23] LABS: BUN 51 mg/dL (8-23); BUN/CREATININE RATIO 38 (12-20 (CALC)); CARBON DIOXIDE 19 mmol/l (22-30); CHLORIDE 107 mmol/l (95-108); CREATININE 1.3 mg/dL (0.7-1.3); GFR 53 ML/MIN (>=60 (CALC)); GFR FOR AFR.AMER. > 60 ML/MIN (>=60 (CALC)); POTASSIUM 4.4 mmol/l (3.5-5.1)
[2018-11-13 12:24] LABS: ANION GAP 19 (6-22 (CALC)); SODIUM 141 mmol/l (137-146)
[2018-11-13] MEDS ORDERED: ALLOPURINOL100 MG PEG (13:26)
[2018-11-13] MEDS ORDERED: METOCLOPRAMIDE10 M1 PEG (13:28)
[2018-11-13 14:50] LABS: URINE BILIRUBIN - DIPSTICK NEGATIVE (NEGATIVE); URINE BLOOD DIPSTICK LARGE (NEGATIVE); URINE COLOR YELLOW; URINE GLUCOSE - DIPSTICK NEGATIVE (NEGATIVE); URINE KETONE TRACE mg/dL (NEGATIVE); URINE NITRITE - DIPSTICK NEGATIVE (Negative); URINE PROTEIN - DIPSTICK 30 mg/dL (NEG-TRACE); URINE SPECIFIC GRAVITY 1.025; URINE UROBILINOGEN - DIPSTICK 0.2 E.U./dL (0.2)
[2018-11-13 14:55] LABS: URINE LEUK ESTERASE SMALL (NEGATIVE)
[2018-11-13 15:06] LABS: URINE AMORPH SEDIMENT FEW hpf (NONE-FER)
[2018-11-13] MEDS ORDERED: VANCOMYCIN H PEG (16:06)
[2018-11-13] MEDS ORDERED: GLUCERNA CAL PEG ×2 (16:07→16:09)
[2018-11-13 19:07] VITALS: BP 117/65
[2018-11-13 23:48] VITALS: BP 107/67
[2018-11-14 04:11] LABS: C. DIFFICILE TOXIN A&B NEGATIVE (NEGATIVE)
[2018-11-14 04:57] VITALS: BP 114/65
[2018-11-14] MEDS ORDERED: PROTONIX40 M4 PEG (07:36)
[2018-11-14 08:09] LABS: IMMATURE GRANULOCYTES 0.5 % (0.0-5.0); MEAN CELL VOLUME 89.6 fL CALC (80.0-100.0); MEAN CORPUSCULAR HGB 27.7 pG CALC (26.0-32.0); MEAN CORPUSCULAR HGB CONC 30.9 g/L CALC (32.0-36.0); NEUT# 10.19 thou/uL (1.82-7.42); RED BLOOD COUNT 2.89 mill/uL (4.70-6.10); RED CELL DISTRI WIDTH 16.1 % (11.5-15.5)
[2018-11-14 08:10] LABS: HEMATOCRIT 25.9 % (39.0-50.0)
[2018-11-14 08:17] LABS: ALKALINE PHOSPHATASE 76 u/l (38-126); BILIRUBIN, TOTAL 0.2 mg/dL (0.0-1.4); BUN 41 mg/dL (8-23); BUN/CREATININE RATIO 41 (12-20 (CALC)); CHLORIDE 109 mmol/l (95-108); GFR > 60 ML/MIN (>=60 (CALC)); GFR FOR AFR.AMER. > 60 ML/MIN (>=60 (CALC)); LIPASE 46 u/l (23-300); MAGNESIUM 1.8 mg/dL (1.6-2.3); POTASSIUM 3.7 mmol/l (3.5-5.1); SGOT/AST 17 u/l (19-48); SODIUM 142 mmol/l (137-146); TOTAL PROTEIN 5.8 g/dL (6.3-8.2)
[2018-11-14 08:18] LABS: AMYLASE < 30 u/l (30-110); ANION GAP 12 (6-22 (CALC)); CARBON DIOXIDE 25 mmol/l (22-30)
[2018-11-14 08:20] VITALS: BP 128/70
[2018-11-14 11:17] VITALS: BP 126/68
[2018-11-14 15:20] VITALS: BP 134/70
[2018-11-14 19:30] VITALS: BP 156/72
[2018-11-14 23:59] VITALS: BP 129/63
[2018-11-15 03:53] VITALS: BP 133/61
[2018-11-15 04:26] VITALS: BP 155/83
[2018-11-15 05:30] LABS: ALBUMIN 2.8 g/dL (3.2-5.0); ALKALINE PHOSPHATASE 76 u/l (38-126); ANION GAP 12 (6-22 (CALC)); BILIRUBIN, TOTAL 0.2 mg/dL (0.0-1.4); BUN 30 mg/dL (8-23); BUN/CREATININE RATIO 39 (12-20 (CALC)); CARBON DIOXIDE 23 mmol/l (22-30); CHLORIDE 107 mmol/l (95-108); CREATININE 0.8 mg/dL (0.7-1.3); GFR > 60 ML/MIN (>=60 (CALC)); GFR FOR AFR.AMER. > 60 ML/MIN (>=60 (CALC)); MAGNESIUM 1.7 mg/dL (1.6-2.3); POTASSIUM 3.6 mmol/l (3.5-5.1); SGOT/AST 14 u/l (19-48); SODIUM 139 mmol/l (137-146); TOTAL PROTEIN 5.5 g/dL (6.3-8.2)
[2018-11-15 05:37] LABS: HEMATOCRIT 29.2 % (39.0-50.0); HEMOGLOBIN 8.9 g/dl (14.0-18.0); IMMATURE GRANULOCYTES 0.9 % (0.0-5.0); MEAN CELL VOLUME 92.1 fL CALC (80.0-100.0); MEAN CORPUSCULAR HGB 28.1 pG CALC (26.0-32.0); MEAN CORPUSCULAR HGB CONC 30.5 g/L CALC (32.0-36.0); NEUT# 7.86 thou/uL (1.82-7.42); RED BLOOD COUNT 3.17 mill/uL (4.70-6.10); RED CELL DISTRI WIDTH 15.9 % (11.5-15.5)
[2018-11-15 08:18] VITALS: BP 136/68
[2018-11-15 11:06] VITALS: BP 134/60
[2018-11-15 15:15] VITALS: BP 129/58
[2018-11-15 19:52] VITALS: BP 153/72
[2018-11-16 00:49] VITALS: BP 142/72
[2018-11-16 03:44] VITALS: BP 133/67
[2018-11-16 09:04] VITALS: BP 149/78
[2018-11-16 11:23] VITALS: BP 132/58
[2018-11-16 16:30] VITALS: BP 146/73
[2018-11-16 19:42] VITALS: BP 138/62
[2018-11-17] VITALS (7 sets, daily range): BP systolic 101–149; BP diastolic 48–74
[2018-11-17 05:49] LABS: HEMATOCRIT 28.3 % (39.0-50.0); HEMOGLOBIN 9.1 g/dl (14.0-18.0); IMMATURE GRANULOCYTES 0.8 % (0.0-5.0); MEAN CELL VOLUME 87.9 fL CALC (80.0-100.0); MEAN CORPUSCULAR HGB 28.3 pG CALC (26.0-32.0); MEAN CORPUSCULAR HGB CONC 32.2 g/L CALC (32.0-36.0); NEUT# 6.46 thou/uL (1.82-7.42); RED BLOOD COUNT 3.22 mill/uL (4.70-6.10); RED CELL DISTRI WIDTH 15.9 % (11.5-15.5)
[2018-11-17 05:50] LABS: CHOLESTEROL HDL RATIO 3.6 (<4.4 (CALC))
[2018-11-17 05:52] LABS: BUN 22 mg/dL (8-23); BUN/CREATININE RATIO 38 (12-20 (CALC)); CARBON DIOXIDE 23 mmol/l (22-30); CHLORIDE 101 mmol/l (95-108); CREATININE 0.6 mg/dL (0.7-1.3); GFR > 60 ML/MIN (>=60 (CALC)); GFR FOR AFR.AMER. > 60 ML/MIN (>=60 (CALC)); MAGNESIUM 1.6 mg/dL (1.6-2.3); POTASSIUM 4.3 mmol/l (3.5-5.1)
[2018-11-17 05:54] LABS: ANION GAP 12 (6-22 (CALC)); SODIUM 132 mmol/l (137-146)
[2018-11-18 04:49] VITALS: BP 129/65
[2018-11-18 05:09] LABS: ANION GAP 13 (6-22 (CALC)); BUN 23 mg/dL (8-23); BUN/CREATININE RATIO 38 (12-20 (CALC)); CARBON DIOXIDE 22 mmol/l (22-30); CHLORIDE 102 mmol/l (95-108); CREATININE 0.6 mg/dL (0.7-1.3); GFR > 60 ML/MIN (>=60 (CALC)); GFR FOR AFR.AMER. > 60 ML/MIN (>=60 (CALC)); MAGNESIUM 1.7 mg/dL (1.6-2.3); POTASSIUM 4.5 mmol/l (3.5-5.1); SODIUM 133 mmol/l (137-146)
[2018-11-18 05:10] LABS: HEMATOCRIT 28.8 % (39.0-50.0); HEMOGLOBIN 9.1 g/dl (14.0-18.0); IMMATURE GRANULOCYTES 0.8 % (0.0-5.0); MEAN CELL VOLUME 88.6 fL CALC (80.0-100.0); MEAN CORPUSCULAR HGB CONC 31.6 g/L CALC (32.0-36.0); NEUT# 7.79 thou/uL (1.82-7.42); RED BLOOD COUNT 3.25 mill/uL (4.70-6.10); RED CELL DISTRI WIDTH 15.7 % (11.5-15.5)
[2018-11-18 09:17] VITALS: BP 159/72
[2018-11-18 11:40] VITALS: BP 146/50
[2018-11-18 13:17] VITALS: BP 164/75
[2018-11-18 15:30] VITALS: BP 147/68; BP 166/76
[2018-11-18 19:33] VITALS: BP 155/80
[2018-11-19 03:41] VITALS: BP 135/69
[2018-11-19 05:42] LABS: HEMATOCRIT 28.9 % (39.0-50.0); HEMOGLOBIN 9.2 g/dl (14.0-18.0); IMMATURE GRANULOCYTES 0.9 % (0.0-5.0); MEAN CELL VOLUME 87.6 fL CALC (80.0-100.0); MEAN CORPUSCULAR HGB 27.9 pG CALC (26.0-32.0); MEAN CORPUSCULAR HGB CONC 31.8 g/L CALC (32.0-36.0); NEUT# 11.32 thou/uL (1.82-7.42); RED BLOOD COUNT 3.3 mill/uL (4.70-6.10); RED CELL DISTRI WIDTH 15.9 % (11.5-15.5)
[2018-11-19 06:06] LABS: ALBUMIN 2.9 g/dL (3.2-5.0); ALKALINE PHOSPHATASE 98 u/l (38-126); AMYLASE 47 u/l (30-110); BILIRUBIN, TOTAL 0.2 mg/dL (0.0-1.4); BUN 27 mg/dL (8-23); BUN/CREATININE RATIO 35 (12-20 (CALC)); CARBON DIOXIDE 23 mmol/l (22-30); CHLORIDE 103 mmol/l (95-108); CREATININE 0.8 mg/dL (0.7-1.3); GFR > 60 ML/MIN (>=60 (CALC)); GFR FOR AFR.AMER. > 60 ML/MIN (>=60 (CALC)); LIPASE 101 u/l (23-300); MAGNESIUM 1.8 mg/dL (1.6-2.3); SGOT/AST 17 u/l (19-48); SODIUM 135 mmol/l (137-146); TOTAL PROTEIN 5.8 g/dL (6.3-8.2)
[2018-11-19 06:13] LABS: ANION GAP 14 (6-22 (CALC)); POTASSIUM 5.2 mmol/l (3.5-5.1)
[2018-11-19 08:47] VITALS: BP 149/67
[2018-11-19 15:15] VITALS: BP 124/63
[2018-11-19 18:55] VITALS: BP 126/65
[2018-11-20 04:29] VITALS: BP 100/56
[2018-11-20 05:02] LABS: HEMATOCRIT 27.5 % (39.0-50.0); HEMOGLOBIN 8.8 g/dl (14.0-18.0); IMMATURE GRANULOCYTES 0.7 % (0.0-5.0); MEAN CELL VOLUME 87.6 fL CALC (80.0-100.0); NEUT# 6.29 thou/uL (1.82-7.42); RED BLOOD COUNT 3.14 mill/uL (4.70-6.10)
[2018-11-20 05:34] LABS: ALBUMIN 2.9 g/dL (3.2-5.0); ALKALINE PHOSPHATASE 98 u/l (38-126); ANION GAP 12 (6-22 (CALC)); BILIRUBIN, TOTAL 0.2 mg/dL (0.0-1.4); BUN 30 mg/dL (8-23); BUN/CREATININE RATIO 38 (12-20 (CALC)); CARBON DIOXIDE 25 mmol/l (22-30); CHLORIDE 102 mmol/l (95-108); CREATININE 0.8 mg/dL (0.7-1.3); GFR > 60 ML/MIN (>=60 (CALC)); GFR FOR AFR.AMER. > 60 ML/MIN (>=60 (CALC)); MAGNESIUM 1.8 mg/dL (1.6-2.3); POTASSIUM 5.2 mmol/l (3.5-5.1); SGOT/AST 22 u/l (19-48); SODIUM 134 mmol/l (137-146); TOTAL PROTEIN 5.6 g/dL (6.3-8.2)
[2018-11-20 09:24] VITALS: BP 119/71
[2018-11-20 12:53] VITALS: BP 109/62
[2018-11-20 16:00] VITALS: BP 107/56
[2018-11-20 21:08] VITALS: BP 137/71
[2018-11-21 03:46] LABS: URINE BILIRUBIN - DIPSTICK NEGATIVE (NEGATIVE); URINE BLOOD DIPSTICK SMALL (NEGATIVE); URINE COLOR YELLOW; URINE GLUCOSE - DIPSTICK NEGATIVE (NEGATIVE); URINE KETONE NEGATIVE (NEGATIVE); URINE LEUK ESTERASE NEGATIVE (NEGATIVE); URINE NITRITE - DIPSTICK NEGATIVE (Negative); URINE PROTEIN - DIPSTICK TRACE mg/dL (NEG-TRACE); URINE UROBILINOGEN - DIPSTICK 0.2 E.U./dL (0.2)
[2018-11-21 03:57] LABS: URINE SQUAMOUS EPITHELIAL CELL RARE EPI/hpf (0-FEW)
[2018-11-21 05:58] VITALS: BP 114/66
[2018-11-21 08:00] VITALS: BP 98/53
[2018-11-21 16:00] VITALS: BP 107/48
[2018-11-21 20:02] VITALS: BP 169/74
[2018-11-22 05:18] VITALS: BP 117/64
[2018-11-22 05:20] VITALS: BP 132/68
[2018-11-22 08:25] VITALS: BP 109/63
[2018-11-22 16:00] VITALS: BP 138/73
== END 2018-11-22 16:10 | DRG 178 ==
LOC: ED 11:12 → ED-I 13:01 → ED 13:41 → ED-I 13:42 → MS2 13:42
PROVIDERS: Family Medicine; Nurse Practitioner Family; ADMIT Internal Medicine Nephrology; ATTEND Internal Medicine Nephrology
DX: J69.0 Pneumonitis due to inhalation of food and vomit (principal); E46 Unspecified protein-calorie malnutrition; T83.518A Infection and inflammatory reaction due to other urinary catheter, initial encounter; N39.0 Urinary tract infection, site not specified; A04.72 Enterocolitis due to Clostridium difficile, not specified as recurrent; A04.4 Other intestinal Escherichia coli infections; I12.9 Hypertensive chronic kidney disease with stage 1 through stage 4 chronic kidney disease, or unspecified chronic kidney disease; E11.22 Type 2 diabetes mellitus with diabetic chronic kidney disease; N18.3 Chronic kidney disease, stage 3 (moderate); E78.5 Hyperlipidemia, unspecified; I69.391 Dysphagia following cerebral infarction; R13.10 Dysphagia, unspecified; E11.42 Type 2 diabetes mellitus with diabetic polyneuropathy; K21.9 Gastro-esophageal reflux disease without esophagitis; M10.9 Gout, unspecified; F32.9 Major depressive disorder, single episode, unspecified; N40.1 Benign prostatic hyperplasia with lower urinary tract symptoms; R33.8 Other retention of urine; M62.50 Muscle wasting and atrophy, not elsewhere classified, unspecified site; I48.2 Chronic atrial fibrillation; B96.5 Pseudomonas (aeruginosa) (mallei) (pseudomallei) as the cause of diseases classified elsewhere; Z93.1 Gastrostomy status; Y84.6 Urinary catheterization as the cause of abnormal reaction of the patient, or of later complication, without mention of misadventure at the time of the procedure; Z68.24 Body mass index [BMI] 24.0-24.9, adult; Z87.01 Personal history of pneumonia (recurrent); Z79.4 Long term (current) use of insulin; Z16.12 Extended spectrum beta lactamase (ESBL) resistance
CPT/HCPCS: S0164

== ENCOUNTER 2018-12-14 19:08 | Emergency (ER) | payer MEDICARE, OTHER ==
[~2018-12-14] VITALS: Ht 175.3 cm; Wt 78.0 kg
[~2018-12-14 19:08] MED LIST changes: +ALLOPURINOL100 MG PEG; +GLUCERNA CAL PEG; +METOCLOPRAMIDE10 M1 PEG; +PROTONIX40 M4 PEG; +VANCOMYCIN H PEG
[2018-12-14 20:00] LABS: URINE BILIRUBIN - DIPSTICK NEGATIVE (NEGATIVE); URINE BLOOD DIPSTICK LARGE (NEGATIVE); URINE COLOR YELLOW; URINE GLUCOSE - DIPSTICK NEGATIVE (NEGATIVE); URINE KETONE NEGATIVE (NEGATIVE); URINE PH 8.5 (4.5-8.0); URINE PROTEIN - DIPSTICK 30 mg/dL (NEG-TRACE); URINE UROBILINOGEN - DIPSTICK 0.2 E.U./dL (0.2)
[2018-12-14 20:02] LABS: URINE LEUK ESTERASE LARGE (NEGATIVE); URINE NITRITE - DIPSTICK POSITIVE (Negative)
[2018-12-14 20:32] LABS: URINE BACTERIA MODERATE hpf; URINE CALCIUM OXALATE CRYSTALS FEW lpf; URINE RBC TNTC RBC/hpf (0-5); URINE SQUAMOUS EPITHELIAL CELL FEW EPI/hpf (0-FEW); URINE WBC 20-50 WBC/hpf (0-5)
[2018-12-14] MEDS ORDERED: CIPROFLOXACIN250 MG PO (21:11)
[2018-12-14 21:50] VITALS: BP 167/88
== END 2018-12-14 21:51 ==
LOC: ED 19:08
PROVIDERS: Family Medicine
PROC: 0T9B70Z Drainage of Bladder with Drainage Device, Via Natural or Artificial Opening (ICD-10-PCS; principal; 2018-12-14)
DX: N40.1 Benign prostatic hyperplasia with lower urinary tract symptoms (principal); R33.8 Other retention of urine; N39.0 Urinary tract infection, site not specified; I10 Essential (primary) hypertension; E11.9 Type 2 diabetes mellitus without complications; B96.4 Proteus (mirabilis) (morganii) as the cause of diseases classified elsewhere

== ENCOUNTER 2019-03-19 02:46 | Emergency (ER) | payer MEDICARE, OTHER ==
[~2019-03-19] VITALS: Ht 175.3 cm; Wt 70.0 kg
[~2019-03-19 02:46] MED LIST changes: +CIPROFLOXACIN250 MG PO
[2019-03-19] MEDS ORDERED: CETIRIZINE10 MG PO (03:08)
[2019-03-19] MEDS ORDERED: HUMALOG KW100 UNIT/M SC (03:10)
[2019-03-19] MEDS ORDERED: PROBIOTIC1 TAB PO (03:12)
[2019-03-19] MEDS ORDERED: FIRST-VANCOM25 MG/ML PO (03:13)
[2019-03-19] MEDS ORDERED: PEPCID20 MG PO (03:13)
[2019-03-19 03:30] VITALS: BP 139/78
== END 2019-03-19 03:30 ==
LOC: ED 02:46
PROC: 0T9B70Z Drainage of Bladder with Drainage Device, Via Natural or Artificial Opening (ICD-10-PCS; principal; 2019-03-19)
DX: R33.9 Retention of urine, unspecified (principal); N40.1 Benign prostatic hyperplasia with lower urinary tract symptoms

== ENCOUNTER 2019-07-15 10:05 | Day surgery (SDC) | payer MEDICARE, OTHER ==
[~2019-07-15] VITALS: Ht 175.3 cm; Wt 77.6 kg
[2019-07-15] VITALS (8 sets, daily range): BP systolic 113–144; BP diastolic 53–83
[~2019-07-15 10:05] MED LIST changes: +ADVAIR DISK1 INH; -ALLOPURINOL100 MG PEG; +B-12500 MC1 PO; +CARDIZEM CD240 MG PO; +CETIRIZINE10 MG PO; +CO Q 10100 MG PO; +COLESEVELAM HY625 MG; -ESCITALOPRAM OX10 MG PEG; +ESCITALOPRAM OX10 MG PO; +FIRST-VANCOM25 MG/ML PO; +LOSARTAN POTASS50 MG PO; +LOVASTATIN40 M1 PO; -METOPROL TAR25 MG PEG; +METOPROL TAR25 MG PO; +PEPCID20 MG PO; +PROBIOTIC1 TAB PO; +SINGULAIR10 MG PO; -TAMSULOSIN HCL0.4 MG PEG; +TAMSULOSIN HCL0.4 MG PO
[2019-07-16 04:10] VITALS: BP 116/51
[2019-07-16 09:00] VITALS: BP 112/57
[2019-07-16 12:06] VITALS: BP 109/54
[2019-07-16 16:00] VITALS: BP 121/54
[2019-07-16] MEDS ORDERED: ALDACTONE25 MG PO (16:53)
[2019-07-16] MEDS ORDERED: VITAMIN B-12500 MCG PO (16:53)
[2019-07-16] MEDS ORDERED: LASIX 20 MG TAB20 MG PO (16:54)
[2019-07-16] MEDS ORDERED: COLESEVELAM HY625 MG PO (16:55)
[2019-07-16] MEDS ORDERED: SPIRIVA RE2.5 MCG/AC IN (16:56)
[2019-07-16 19:00] VITALS: BP 114/49
[2019-07-17 04:00] VITALS: BP 121/49
[2019-07-17 05:04] LABS: HEMATOCRIT 33.7 % (39.0-50.0); HEMOGLOBIN 10.6 g/dl (14.0-18.0); IMMATURE GRANULOCYTES 0.5 % (0.0-5.0); MEAN CELL VOLUME 94.9 fL CALC (80.0-100.0); MEAN CORPUSCULAR HGB 29.9 pG CALC (26.0-32.0); MEAN CORPUSCULAR HGB CONC 31.5 g/L CALC (32.0-36.0); NEUT# 6.53 thou/uL (1.82-7.42); RED BLOOD COUNT 3.55 mill/uL (4.70-6.10); RED CELL DISTRI WIDTH 16.2 % (11.5-15.5)
[2019-07-17 05:15] LABS: ANION GAP 10 (6-22 (CALC)); BUN 26 mg/dL (8-23); BUN/CREATININE RATIO 25 (12-20 (CALC)); CARBON DIOXIDE 22 mmol/l (22-30); CHLORIDE 109 mmol/l (95-108); GFR > 60 ML/MIN (>=60 (CALC)); GFR FOR AFR.AMER. > 60 ML/MIN (>=60 (CALC)); MAGNESIUM 1.6 mg/dL (1.6-2.3); POTASSIUM 4.6 mmol/l (3.5-5.1); SODIUM 137 mmol/l (137-146)
[2019-07-17 09:37] VITALS: BP 125/61
[2019-07-17 09:42] VITALS: BP 125/61
[2019-07-17] MEDS ORDERED: PERCOCET 5/325M1 TAB PO (11:18)
== END 2019-07-17 12:50 | disposition home or self-care (01) ==
LOC: MS2 10:05 → ORM 10:05 → MS2 13:00 → ORM 07-17 12:50
PROVIDERS: Nurse Practitioner Family; ATTEND Surgery
PROC: 0JB80ZZ Excision of Abdomen Subcutaneous Tissue and Fascia, Open Approach (ICD-10-PCS; principal; 2019-07-15)
PROC: 3E0234Z Introduction of Serum, Toxoid and Vaccine into Muscle, Percutaneous Approach (ICD-10-PCS; 2019-07-17)
DX: K94.29 Other complications of gastrostomy (principal); Y83.3 Surgical operation with formation of external stoma as the cause of abnormal reaction of the patient, or of later complication, without mention of misadventure at the time of the procedure; R13.10 Dysphagia, unspecified; I48.91 Unspecified atrial fibrillation; K21.9 Gastro-esophageal reflux disease without esophagitis; E11.22 Type 2 diabetes mellitus with diabetic chronic kidney disease; I12.9 Hypertensive chronic kidney disease with stage 1 through stage 4 chronic kidney disease, or unspecified chronic kidney disease; N18.3 Chronic kidney disease, stage 3 (moderate); N40.0 Benign prostatic hyperplasia without lower urinary tract symptoms; E78.5 Hyperlipidemia, unspecified; Z23 Encounter for immunization; Z87.891 Personal history of nicotine dependence; Z87.01 Personal history of pneumonia (recurrent)
CPT/HCPCS: J0131; J1100

== ENCOUNTER 2019-07-19 06:02 | Inpatient (IN) | payer MEDICARE, OTHER ==
[2019-07-19] VITALS (16 sets, daily range): BP systolic 94–125; BP diastolic 37–59
[~2019-07-19] VITALS: Ht 175.3 cm; Wt 75.0 kg
[~2019-07-19 06:02] MED LIST changes: +ALDACTONE25 MG PO; +COLESEVELAM HY625 MG PO; +LASIX 20 MG TAB20 MG PO; +PERCOCET 5/325M1 TAB PO; +SPIRIVA RE2.5 MCG/AC IN; +VITAMIN B-12500 MCG PO
--- NOTE | 2019-07-19 06:03 | NUR ---
PT. TO ROOM 10 VIA EMS WITH C/O BY THAT PT. WAS WEAK, INCONTINENT OF URINE, WITH A HARSH NON-PRODUCTIVE COUGH. WHEN PT. ARRIVED PT. WAS PLACED ON A FIELD SUPPORT REPRESENTATIVE SHOWING A-FIB RVR RATE 160'S. PT. TEMP. 103.0. BILATERAL LUNG COOK ARE RHONCHI. O2 SAT ON 4 LIT/NC 89-92%. AT SIDE. PT. ALSO VOMITED X 3 A MODERATE AMT. UNDIGESTED FOOD. MULTIPLE ATTEMPTS FOR IV SITE. INSERTED A EXTERNAL LEFT JUGLAR. THEN # 20 INSERTED TO .
--- NOTE | 2019-07-19 06:51 | NUR ---
CARDIZEM IVP GIVEN PER MD ORDER.
--- NOTE | 2019-07-19 06:55 | NUR ---
IV ANTIEMETIC GIVEN PER MD ORDER. PT. ALSO HAS A DRY DRESSING TO [facility]. PT. STATES HE HAD A FEEDING TUBE REMOVED ON SUNDAY WHICH WAS PLACED AFTER A PREVIOUS STROKE.
[2019-07-19 06:57] LABS: HEMATOCRIT 34.3 % (39.0-50.0); IMMATURE GRANULOCYTES 0.4 % (0.0-5.0); MEAN CELL VOLUME 95.3 fL CALC (80.0-100.0); MEAN CORPUSCULAR HGB 30.6 pG CALC (26.0-32.0); MEAN CORPUSCULAR HGB CONC 32.1 g/L CALC (32.0-36.0); NEUT# 11.45 thou/uL (1.82-7.42); RED BLOOD COUNT 3.6 mill/uL (4.70-6.10); RED CELL DISTRI WIDTH 15.9 % (11.5-15.5)
--- NOTE | 2019-07-19 07:05 | NUR ---
BEDSIDE REPORT RECEIVED FROM UNA ABREU. NURSE RAPP AT BEDSIDE TO ATTEMPT IV SITE PLACEMENT. PATIENT ALERT AND ORITENTED X3. AT BEDSIDE.
--- NOTE | 2019-07-19 07:10 | NUR ---
REPORT TO [facility].
[2019-07-19 07:16] LABS: ALBUMIN 3.8 g/dL (3.2-5.0); ALKALINE PHOSPHATASE 89 u/l (38-126); ANION GAP 13 (6-22 (CALC)); BILIRUBIN, TOTAL 0.4 mg/dL (0.0-1.4); BUN 27 mg/dL (8-23); BUN/CREATININE RATIO 23 (12-20 (CALC)); CARBON DIOXIDE 22 mmol/l (22-30); CHLORIDE 108 mmol/l (95-108); CREATININE 1.2 mg/dL (0.7-1.3); GFR 58 ML/MIN (>=60 (CALC)); GFR FOR AFR.AMER. > 60 ML/MIN (>=60 (CALC)); POTASSIUM 4.5 mmol/l (3.5-5.1); SGOT/AST 23 u/l (19-48); SODIUM 138 mmol/l (137-146); TOTAL PROTEIN 6.9 g/dL (6.3-8.2)
--- NOTE | 2019-07-19 07:17 | NUR ---
PATIENT UNABLE TO TOLERATE PO TYLENOL, VOMITING YELLOW EMESIS WITH UNDIGESTED FOOD. INFORMED.
[2019-07-19 07:29] LABS: MYOGLOBIN 89 ng/mL (0 - 121)
--- NOTE | 2019-07-19 07:30 | NUR ---
ICE PACKS APPLIED UNDER BILATERAL AXILLA.
--- NOTE | 2019-07-19 07:49 | NUR ---
PATIENT TRANSPORTED TO ICU WITH STEEL MANAGER IN PLACE. UNA SCHMITT AT BEDSIDE. CARE RELINQUISHED.
[2019-07-19] MEDS ORDERED: POTASSIUM99 MG PO (08:09)
[2019-07-19] MEDS ORDERED: MULTI VITAMIN1 TAB PO (08:09)
[2019-07-19] MEDS ORDERED: COQ PO (08:10)
--- NOTE | 2019-07-19 08:12 | NUR ---
AT BEDSIDE TO DISCUSS RESULTS AND PLANS TO ADMIT.
--- NOTE | 2019-07-19 08:21 | NUR ---
REPORT GIVEN TO UNA SCHMITT.
--- NOTE | 2019-07-19 08:23 | NUR ---
#18 LEJ REMOVED AFTER NOT BEING ABLE TO FLUSH OR DRAW BLOOD FROM SITE.
--- NOTE | 2019-07-19 08:30 | NUR ---
BREANNA FROM PHARMACY CALLED FOR COMPATIBILITY OF CARDIZEM AND VANCO. STATES MEDICATIONS ARE Y SITE COMPATIBLE.
--- NOTE | 2019-07-19 08:49 | NUR ---
PATIENT TRANSPORTED TO ICU WITH SPEED WINDER IN PLACE. UNA SCHMITT AT BEDSIDE CARE RELINQUISHED. BELONGINGS SENT WITH PATIENT.
--- NOTE | 2019-07-19 09:00 | NUR ---
PT ARRIVED FROM ED VIA STRETCHER WITH UNA NOVA. PT WAS TRANSFERRED FROM STRETCHER TO BED WITH X2 ASSIST. PT A&OX3, ABLE TO MAKE NEEDS KNOWN. PT DENIES CP, SOB OR DISTRESS AT THIS TIME. ST ON TELEMETRY, HR 100. PT CONTINUES WITH T-99.9. SA02@97% ON 3LPM VIA N/C, LS COARSE THROUGHOUT, NON-PRODUCTIVE COUGH, PT STATED, HE HAS BEEN GETTING STUFF UP. SPUTUM CUP AT BEDSIDE FOR SPECIMEN, PT VERBALIZES UNDERSTANDING.PT STATED HE WAS HERE LAST WEEK TO HAVE PEG TUBE REMOVED, DRESSING CDI, ABDOMEN SOFT, NON-TENDER. BSX4 ACTIVE, LBM -15-19. PT ORIENTED TO UNIT, ROOM AND CALL LIGHT SYSTEM. WILL MONITOR.
--- NOTE | 2019-07-19 09:58 | NUR ---
NEB TX NOT GIVEN DUE TO INCREASED HR.
--- NOTE | 2019-07-19 11:34 | NUR ---
ALISSA FREEMAN AT BEDSIDE FOR ASSESSMENT ANT TO DISCUSS PLAN OF CARE. NEW ORDERS RECIEVED.
--- NOTE | 2019-07-19 12:30 | NUR ---
PT RESTING IN BED WITH EYES CLOSED, RESPIRATION EVEN/UNLABORED. NO N/V NOTED AT THIS TIME. CALL LIGHT IN REACH.
--- NOTE | 2019-07-19 13:28 | NUR ---
EDWINA, RT AT BEDSIDE FOR TX.
--- NOTE | 2019-07-19 14:01 | NUR ---
PT HARMAN CALLED, CODE RECIEVED, UPDATE GIVEN.
--- NOTE | 2019-07-19 15:00 | NUR ---
DR. PEREZ AND RENETTA FREEMAN AT BEDSIDE FOR ASSESSMENT AND TO DISCUSS PLAN OF CARE, REMAINS AT BEDSIDE. NEW ORDERS RECIEVED.
--- NOTE | 2019-07-19 15:02 | NUR ---
ARRIVED AT BEDSIDE FOR VISIT. PT ALERT TALKING WITH .
--- NOTE | 2019-07-19 17:12 | NUR ---
PT RESTING IN BED WITH EYES CLOSED, LESS COUGHING NOTED. NO N/V AT THIS TIME. CALL LIGHT IN REACH. WILL MONITOR.
--- NOTE | 2019-07-19 17:35 | NUR ---
DIETARY ON UNIT , DINNER TRAY SET UP. PT ASSISTED WITH DENTURES.
--- NOTE | 2019-07-19 18:22 | NUR ---
TX FOLLOWED BY CPT VIA PERCUSSOR.
--- NOTE | 2019-07-19 20:45 | NUR ---
- ASSESSMENT COMPLETED. IV SITE PATENT AND NS INFUSING @100MLS/HR; CARDIZEM GTT WAS STOPPED ON . CARIAC MONITOR READING SR WITH HR IN THE 80'S. PT. IS INCONTINENT OF LARGE LOOSE BM AND APPEARS TO HAVE URINE MIXED; CBB AND LINEN CHANGE DONE AT THIS TIME. VSS. SRIDEVI HOSE APPLIED TO BLE ALONG WITH BILATERAL HEEL PROTECTORS HEELS ARE REDDENED BUT BLANCHABLE. PHOTO OBTAINED OF REDDENED BUTTOCKS AND ENCOURAGED TO REPOSITION OFTEN. HOB ELEVATED ALL THE WAY INTO HIGH FOWLERS FOR PM MEDICATIONS, PLACED WHOLE IN PUDDING PER PT'S REQUEST AND PT. ABLE TO SWALLOW WITH SOME COUGHING. HOB REMAINS ELEVATED POST PO FLUIDS AND PO MEDS, WILL REMAIN ELEVATED FOR 30 MIN. SKIN TEAR NOTED TO LEFT ELBOW WELL. LEFT SIDE WEAKNESS NOTED PER PT THIS IS POST CVA RESIDUAL. PLACED URINAL IN BETWEEN LEGS TO ATTEMPT TO GET URINE SAMPLE. BLADDER SCANNED AT THIS TIME AND READING 209MLS. WILL CONTINUE TO MONITOR. CALL LIGHT IS IN REACH. WILL CONTINUE TO MONITOR.
--- NOTE | 2019-07-19 21:54 | NUR ---
PT. VOIDED 200MLS AND BLADDERR SCANNED PVR SHOWING 200MLS. PT. DENIES NEEDS/PAIN. CALL LIGHT IS IN REACH. UA OBTAINED.
[2019-07-19 22:22] LABS: URINE BILIRUBIN - DIPSTICK NEGATIVE (NEGATIVE); URINE BLOOD DIPSTICK TRACE-INTACT (NEGATIVE); URINE COLOR YELLOW; URINE GLUCOSE - DIPSTICK NEGATIVE (NEGATIVE); URINE KETONE NEGATIVE (NEGATIVE); URINE PH 5.5 (4.5-8.0); URINE PROTEIN - DIPSTICK NEGATIVE (NEG-TRACE); URINE UROBILINOGEN - DIPSTICK 0.2 E.U./dL (0.2)
[2019-07-19 22:23] LABS: URINE LEUK ESTERASE SMALL (NEGATIVE); URINE NITRITE - DIPSTICK POSITIVE (Negative)
[2019-07-19 22:47] LABS: URINE BACTERIA MODERATE hpf; URINE SQUAMOUS EPITHELIAL CELL FEW EPI/hpf (0-FEW); URINE WBC 20-50 WBC/hpf (0-5)
--- NOTE | 2019-07-19 23:05 | NUR ---
PT. AGAIN WITH LARGE AMOUNT OF LIQUID/LOOSE STOOL. SPECIMEN OBTAINED AND SENT TO LAB. PT. REPORTS HE DOES NOT EVEN FEEL IT WHEN HE'S HAVING A BOWEL MOVEMENT. CLEANSED AND NEW PADS PLACED UNDERNEATH HIM. REPOSITIONED ONTO RIGHT SIDE AND BILATERAL HEELS ELEVATED. DENIES FURTHER NEEDS. CALL LIGHT IS IN REACH.
[2019-07-20] VITALS (15 sets, daily range): BP systolic 111–160; BP diastolic 52–81
--- NOTE | 2019-07-20 01:05 | NUR ---
PULLED UP IN BED AND REPOSITIONED ONTO LEFT SIDE. PT. VOIDED 200MLS OF URINE. DENIES NEEDS. CALL LIGHT IS IN REACH. WILL CONTINUE TO MONITOR.
--- NOTE | 2019-07-20 03:10 | NUR ---
PT. CLEANED OF A MODERATE BM AND RODNEY CARE PROVIDED. URINAL EMPTIED. NEW PADS APPLIED AND GOWN CHANGED. REPOSITIONED AT THIS TIME. PT. DENIES NEEDS/PAIN. 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
--- NOTE | 2019-07-20 05:02 | NUR ---
PT. VOIDED 75MLS OF DARK YELLOW CLEAR URINE, BLADDER SCANNED AND PVR IS 206MLS. CHECKED FOR INCONTINENCE OF STOOL AND NONE NOTED. SPUTUM VUP REMAINS AT BEDSIDE AND PT. WITH MOIST NON-PRODUCTIVE WET COUGH.
--- NOTE | 2019-07-20 05:25 | NUR ---
CPT DONE TO POSTERIOR RIGHT LUNG COOK. LOOSE NON-PRODUCTIVE COUGH. TOLERATED WELL.
--- NOTE | 2019-07-20 05:30 | NUR ---
INCENTIVE SPITOMETER PROVIDED AND EDUCATED ON USE. PT. ABLE TO PULL BETWEEN 1250 AND 1500 AND COMPLETED 10 REPS AND SET AT BEDSIDE.
--- NOTE | 2019-07-20 05:36 | NUR ---
RT IN AT BEDSIDE PERFORMING CPT.
[2019-07-20 05:45] LABS: HEMATOCRIT 30.4 % (39.0-50.0); HEMOGLOBIN 9.4 g/dl (14.0-18.0); IMMATURE GRANULOCYTES 0.4 % (0.0-5.0); MEAN CELL VOLUME 96.5 fL CALC (80.0-100.0); MEAN CORPUSCULAR HGB 29.8 pG CALC (26.0-32.0); MEAN CORPUSCULAR HGB CONC 30.9 g/L CALC (32.0-36.0); NEUT# 9.72 thou/uL (1.82-7.42); RED BLOOD COUNT 3.15 mill/uL (4.70-6.10); RED CELL DISTRI WIDTH 16.4 % (11.5-15.5)
[2019-07-20 06:00] LABS: ANION GAP 10 (6-22 (CALC)); BUN 24 mg/dL (8-23); BUN/CREATININE RATIO 22 (12-20 (CALC)); CARBON DIOXIDE 21 mmol/l (22-30); CHLORIDE 114 mmol/l (95-108); CREATININE 1.1 mg/dL (0.7-1.3); GFR > 60 ML/MIN (>=60 (CALC)); GFR FOR AFR.AMER. > 60 ML/MIN (>=60 (CALC)); SODIUM 141 mmol/l (137-146)
--- NOTE | 2019-07-20 06:15 | NUR ---
URINAL EMPTIED OF 100MLS OF DARK YELLOW CLEAR URINE AND CLEANED OF INCONTNENCE OF SMALL LIQUID BM; RODNEY CARE GIVEN, AND NEW DRAW SHEET, UNDERNEATH PAD, AND BRIEF CHANGED. URINAL REPLACED INBETWEEN LEGS. POWDER APPLIED TO BUTTOCKS AND RODNEY AREA. PULLED UP IN BED AND REPOSITIONED ONTO RIGHT SIDE WITH BILATERAL HEELS ELEVATED. PO FLUIDS OFFERED. CALL LIGHT IS IN REACH.
--- NOTE | 2019-07-20 06:45 | NUR ---
RECIEVED REPORT FROM UNA ZHANG. ASSUMED PT CARE.
--- NOTE | 2019-07-20 07:30 | NUR ---
PT A&OX3 ABLE TO MAKE NEEDS KNOWN. PT INC OF B&B, GOOD PERICARE PROVIDED, BARRIER APPLIED, LINEN AND GOWN CHANGED. PT REPOSITIONED FOR COMFORT. RESPIRATIONS EVEN/UNLABORED, COARSE THROUGHOUT, PT UNABLE TO COUGH UP SPUTUM FOR SAMPLE. SAO2@100% ON 2.5LPM VIA NC. ABDOMEN SOFT, NON-DISTENDED, BS X 4 ACTIVE, DRSG TO LUQ CDI. PT CONTINUES WITH LOOSE STOOL.HEELS IN PROTECTOR BILAT WITH HEELS OFF LOADED. CALL LIGHT IN REACH. WILL MONITOR.
--- NOTE | 2019-07-20 07:45 | NUR ---
DIETARY ON UNIT, PT REPOSITION WITH HOB UP. BREAKFAST TRAY SET UP. PT TOLERATED WELL.
--- NOTE | 2019-07-20 08:22 | NUR ---
PT SITTING UP IN BED, TALKING ON PERSONAL CELL PHONE. CALL LIGHT IN REACH. WILL MONITOR.
--- NOTE | 2019-07-20 09:00 | NUR ---
PT GIVEN APPLESAUCE WITH MEDICINE, MEDICATION GIVEN 1 AT A TIME. PT TOLERATED WELL. PT CONTINUES WITH AUDIBLE COARSENESS NOTED. PT ENCOURAGED TO COUGH AND USE IS. PT EDUCATED ON IS USE. CALL LIGHT IN REACH. WILL MONITOR.
--- NOTE | 2019-07-20 10:00 | NUR ---
PT RESTING IN BED, REPOSITIONED FOR COMFORT, HEELS REMAIN IN PROTECTORS AND OFFLOADED. CALL LIGHT IN REACH. WILL MONITOR.
--- NOTE | 2019-07-20 11:30 | NUR ---
LUNCH TRAY SET UP. PT TOLERATED WELL
--- NOTE | 2019-07-20 12:15 | NUR ---
PT INC OF BM, SMALL LOOSE STOOL. PT GIVEN COMPLETE BED BATH, GOWN AND LINEN CHANGE. PT TOLERATED WELL. HEELS REMAIN OFFLOADED AND HEEL PROTECTORS INTACT. CALL LIGHT IN REACH. WILL MONITOR.
--- NOTE | 2019-07-20 13:07 | NUR ---
PT REPOSITIONED FOR COMFORT, PT OFFERS NO COMPLAINTS AT THIS TIME.
--- NOTE | 2019-07-20 13:08 | NUR ---
ARRIVED AT BEDSIDE FOR VISIT.
--- NOTE | 2019-07-20 13:55 | NUR ---
DR. PEREZ AND ALISSA FREEMAN AT BEDSIDE FOR ASSESSMENT AND TO DISCUSS PLAN OF CARE.
--- NOTE | 2019-07-20 14:24 | NUR ---
RT AT BEDSIDE FOR TX.
--- NOTE | 2019-07-20 16:04 | NUR ---
PT RESTING IN BED WITH EYES CLOSED, OFFERS NO COMPLAINTS AT THIS TIME.
--- NOTE | 2019-07-20 17:15 | NUR ---
DIETARY ON UNIT. PT REPOSITIONED FOR DINNER. PT REFUSED STATED HE DIDN'T FEEL LIKE EATING. PT C/O NAUSEA. PT GIVEN MARIANA NAY PER REQUEST. PT TOLERATED WELL. WILL MONITOR.
--- NOTE | 2019-07-20 18:00 | NUR ---
PT OFFERED DINNER TRAY AGAIN, STATED I WOULD RE HEAT PT DECLINED AGAIN, STATED HE WAS STILL NAUSOEUS. PT MEDICATED PER ORDERS. WILL MONITOR.
--- NOTE | 2019-07-20 19:20 | NUR ---
ASSESSMENT COMPLETED.NO DISTRESS NOTED. O2 INFUSING PER NC PER ORDER. IV SITE PATENT. PT. STILL REPORTS NO APPETITE AND DECLINES DINNER TRAY. MARIANA NAY PROVIDED PER PT'S REQUEST. ENCOURAGED USE OF INCENTIVE SPIROMETER AND VERBALIZES UNDERSTANDING. DENIES NEEDS/PAIN. DRESSING TO LUQ INTACT. BILATERAL HEEL PROTECTORS IN PLACE AND HEELS ELEVATED. URINAL EMPTIED AND CLEANED OF A SCANT BM. ENCOURAGED TO CALL FOR ANY NEEDS. CALL LIGHT IS IN REACH. WILL CONTINUE TO MONITOR.
--- NOTE | 2019-07-20 21:56 | NUR ---
CLEANED OF A SCANT BM AND URINAL EMPTIED OF 100MLS OF DARK YELLOW CLEAR URINE. PULLED UP IN BED AND REPOSITIONED ONTO RIGHT SIDE. HOB ELEVATED. DENIES FURTHER NEEDS. CALL LIGHT IS IN REACH.
--- NOTE | 2019-07-20 22:30 | NUR ---
PT. MOVED TO [facility] PER ORDER. PT. TOLERATED WELL. URINAL EMPTIED.
--- NOTE | 2019-07-20 23:30 | NUR ---
NO DISTRESS NOTED. PT. WILL INTERMITTENTLY COUGH AFTER DRINKING PO FLUIDS. STILL WITH MOIST COUGH, NON-PRODUCTIVE.
[2019-07-21] VITALS (14 sets, daily range): BP systolic 150–166; BP diastolic 59–88
--- NOTE | 2019-07-21 00:26 | NUR ---
PRN SUCTION SET AT BEDSIDE PER ORDER. THIS PRE SCHOOL MANAGER ATTEMPTED TO SUCTION AND PT. BEGAN GAGGING. WILL ATTEMPT AGAIN LATER IF WARRANTED. REPOSITIONED INTO FOWLERS POSITION. CHECKED FOR INCONTINECE AND NONE NOTED. URINAL EMPTIED OF 75MLS OF URINE AND URINAL REPLACED INBETWEEN LEGS. DENIES NEEDS. CALL LIGHT IS IN REACH.
--- NOTE | 2019-07-21 04:25 | NUR ---
1468-2019- DRESSING TO ABDOMEN REMOVED DUE TO IT BEING SOILED; 8 BRIONNA INTACT AND SOME BRUISING NOTED. CBB GIVEN AND LINENS CHANGED. VSS. REPOSITIONED AT THIS TIME. HOB ELEVATED. VOIDED 200MLS OF DARK YELLOW CLEAR URINE AND BLADDER SCANNED PVR IS 139MLS AT THIS TIME. PT. DENIES NEEDS/PAIN. IV SITE PATENT AND ORDERED IVF INFUSING WELL. ENCOURAGED TO CALL FOR ANY NEEDS. CALL LIGHT IS IN REACH.
[2019-07-21 05:14] LABS: HEMATOCRIT 32.1 % (39.0-50.0); HEMOGLOBIN 9.6 g/dl (14.0-18.0); IMMATURE GRANULOCYTES 0.4 % (0.0-5.0); MEAN CELL VOLUME 99.4 fL CALC (80.0-100.0); MEAN CORPUSCULAR HGB 29.7 pG CALC (26.0-32.0); MEAN CORPUSCULAR HGB CONC 29.9 g/L CALC (32.0-36.0); NEUT# 7.08 thou/uL (1.82-7.42); RED BLOOD COUNT 3.23 mill/uL (4.70-6.10); RED CELL DISTRI WIDTH 16.2 % (11.5-15.5)
[2019-07-21 05:42] LABS: ALKALINE PHOSPHATASE 66 u/l (38-126); ANION GAP 11 (6-22 (CALC)); BILIRUBIN, TOTAL 0.5 mg/dL (0.0-1.4); BUN 17 mg/dL (8-23); BUN/CREATININE RATIO 17 (12-20 (CALC)); CARBON DIOXIDE 19 mmol/l (22-30); CHLORIDE 114 mmol/l (95-108); GFR > 60 ML/MIN (>=60 (CALC)); GFR FOR AFR.AMER. > 60 ML/MIN (>=60 (CALC)); POTASSIUM 3.8 mmol/l (3.5-5.1); SGOT/AST 16 u/l (19-48); SODIUM 140 mmol/l (137-146); TOTAL PROTEIN 5.6 g/dL (6.3-8.2)
[2019-07-21 05:49] LABS: ALBUMIN 2.8 g/dL (3.2-5.0)
--- NOTE | 2019-07-21 06:02 | NUR ---
B/P SLIGHTLY ELEVATED AT 166/83 AND MEDICATED WITH AM LOPRESSOR IN APPLESAUCE. PT. TOLERATED. STILL WITH INTERMITTENT MOIST NON-PRODUCTIVE COUGH. ATTEMPTED TO DO SUCTION AGAIN WITH YANCAR PRIOR TO PILLS AND VERY MINIMAL SUCTIONED OUT. URINAL EMPTIED OF 100MLS AND NO INCONTINENCE NOTED. REPOSITIONED INTO HIGH FOWLERS. WILL CONTINUE TO MONITOR. CALL LIGHT IS IN REACH.
--- NOTE | 2019-07-21 07:00 | NUR ---
PT RESTING IN BED WITH EYES CLOSED. PT AROUSES TO VERBAL STIMULI. PT IS ALERT AND ORIENTED X3. SHIFT ASSESSMENT COMPLETED AT THIS TIME. IV PATENT X1. CALL LIGHT IN REACH. WILL CONTINUE TO MONITOR.
--- NOTE | 2019-07-21 07:40 | NUR ---
SPEECH THERAPIST AT BEDSIDE AT THIS TIME
--- NOTE | 2019-07-21 08:45 | NUR ---
PT SET UP FOR AM MEAL.
--- NOTE | 2019-07-21 08:50 | NUR ---
CRITICAL BLOOD CULTURE RESULTS CALLED TO . 1 VAIL GROWING GRAM (+) COCCI. NEW ORDER FOR VANCOMYCIN PHARMACY TO DOSE. PHARMACY WILL FOLLOW FIR FINAL C+S
--- NOTE | 2019-07-21 08:57 | NUR ---
Pt is an 83 y.o. male referred for a Clinical Bedside Swallow Evaluation d/t concers of aspiration/penetration. Pt w/PMHX of Afib, HTN, UTI (this visit), Dysphagia w/Aspiration PNA, DM2, COPD, and Muscle Wasting Dx. Pt also presents on O2 via NC. Per most recent CXR (07/19/19), pt presents with right perihilar infiltration. This may be d/t aspiration of oral secretion(s) and/or aspiration of foodstuff. Pt able to safely consume thin liquids via straw and puree solids, but presents with consistent (weak volitional) cough at baseline, which continued with PO trials. Pt also recently had PEG tube removed (this week) and is on a total PO diet. EDUCATION SPECIALIST recommending pt continue with regular texture solid (pt preference d/t edentulous status) diet, with thin liquids at this time, as pt appears to be aspirating on oral secretion(s), which will not be alleviated with PEG tube re-insertion. May need to discuss Advanced Directive(s) w/pt, as his compromised respiratory status appears to be the most pertinent factor in his continued aspiration(s). Diet: Regular solids (per pt preference), thin liquids AMPAC Score: 11
--- NOTE | 2019-07-21 09:20 | NUR ---
DR HOPKINS AT BEDSIDE AT THIS TIME
--- NOTE | 2019-07-21 10:00 | NUR ---
PT SITTING UP IN BED AWAKE. RESP ARE EVEN AND UNLABORED. NO DISTRESS NOTED. CALL LIGHT IN REACH. WILL CONTINUE TO MONITOR.
--- NOTE | 2019-07-21 10:26 | NUR ---
S: BREANNA MCKEON is a 83 M who presents with aspiration pneumonia, bacteremia, A-fib with RVR, and BPH. He has a history of post CVA, HTN, BPH, dysphagia, T2DM, CKD stage 3, a-fib. All medications in patient's chart were reviewed. O: VS: BP: 154/67 mmHg, P: 86 beats/min, RR: 19 breath/min,T: 98.5 F W: 75 kg, HT: 69 in, Scr= 1 mg/dL,CrCl= 57.9 ml/min A: Blood culture is pending. Urine culture show 30,000 CFU/mL mixed gram negative jenifer. P: Patient is on Zosyn 3.375 gm IV q6h and Vancomycin 750 mg IV q12h. Vancomycin ordered for pharmacy to dose. Start Vancomycin 750 mg IV Q12H. Vancomycin trough is drawn before the 4th dose on 07/22/19 at 20:30. Vancomycin goal trough is between 15-20 mcg/ml. Pharmacy will follow and or advise on antibiotics use as needed.
--- NOTE | 2019-07-21 11:45 | NUR ---
PT SET UP FOR NOON MEAL AT THIS TIME
--- NOTE | 2019-07-21 12:14 | NUR ---
PT SITTING UP IN BED AWAKE. RESP ARE EVEN AND UNLABORED. NO DISTRESS NOTED. CALLLIGHT IN REACH.W ILL OCNTINUE TO MONITOR
--- NOTE | 2019-07-21 13:55 | NUR ---
pt sitting up in bed visiting with spouse at this time. resp are evne and unlabored. no distress noted. call light in reach. will continue to monitor
--- NOTE | 2019-07-21 16:01 | NUR ---
PT RESTING IN BED WITH EYES CLOSED. RESP ARE EVEN AND UNLABORED. NO DISTRESS NOTED. CALL LIGHT IN REACH. WILL CONTINUE TO MONITOR.
--- NOTE | 2019-07-21 17:30 | NUR ---
PT SET UP FOR PM MEAL HOWEVER CHOSE TO HOLD OFF ON EATING.
--- NOTE | 2019-07-21 19:15 | NUR ---
awake. denies resp diff. pt encouraged to cough. o2 cont per nc. cardiac nurse specialist shows sinus rhythm hr 97. #20 lt hand. ns infusing @ 10cchr. urinal in place. fall prcautions cont.
--- NOTE | 2019-07-21 21:00 | NUR ---
awake. requested cell phone. instructed pt he was able to pick cell phone off of the table. cell phone in reach of pt. pt picked up phone as instructed & used without diff.
--- NOTE | 2019-07-21 21:30 | NUR ---
CPT DONE TO POSTERIOR RIGHT LUNG COOK. NON-PRODUCTIVE COUGH. TOLERATED WELL.
[2019-07-22] VITALS (9 sets, daily range): BP systolic 148–167; BP diastolic 60–83
--- NOTE | 2019-07-22 00:01 | NUR ---
eyes closed. no distress. belt polisher shows sinus rhythm hr 96.
--- NOTE | 2019-07-22 02:00 | NUR ---
resting quietly. no apparent distress. o2 cont.
--- NOTE | 2019-07-22 04:00 | NUR ---
eyes closed. no distress. quality assurance monitor chassis shows sinus rhythm.
--- NOTE | 2019-07-22 05:39 | NUR ---
lab here. blood drawn.
[2019-07-22 05:54] LABS: HEMATOCRIT 28.8 % (39.0-50.0); HEMOGLOBIN 9.1 g/dl (14.0-18.0); MEAN CELL VOLUME 95.7 fL CALC (80.0-100.0); MEAN CORPUSCULAR HGB 30.2 pG CALC (26.0-32.0); MEAN CORPUSCULAR HGB CONC 31.6 g/L CALC (32.0-36.0); RED BLOOD COUNT 3.01 mill/uL (4.70-6.10); RED CELL DISTRI WIDTH 15.9 % (11.5-15.5)
--- NOTE | 2019-07-22 06:00 | NUR ---
am care given with assist of pt. up to chair x2 assists.
[2019-07-22 06:17] LABS: ANION GAP 11 (6-22 (CALC)); BUN 13 mg/dL (8-23); BUN/CREATININE RATIO 13 (12-20 (CALC)); CARBON DIOXIDE 18 mmol/l (22-30); CHLORIDE 115 mmol/l (95-108); GFR > 60 ML/MIN (>=60 (CALC)); GFR FOR AFR.AMER. > 60 ML/MIN (>=60 (CALC)); MAGNESIUM 1.5 mg/dL (1.6-2.3); POTASSIUM 3.4 mmol/l (3.5-5.1); SODIUM 140 mmol/l (137-146)
--- NOTE | 2019-07-22 07:40 | NUR ---
PT SITTING UP IN CHAIR AT BEDSIDE. PT IS ALERT AND ORIENTED X3. SHIFT ASSESSMENT COMPLETED AT THIS TIME. IV PATENT X1. CALL LIGHT IN REACH. WILL CONTINUE TO MONITOR
--- NOTE | 2019-07-22 08:15 | NUR ---
PT TO RADIOLOGY DEPARTMENT VIA WHEELCHAIR
--- NOTE | 2019-07-22 08:35 | NUR ---
pt returned from radiology via wheelchair. assisted back to chair
--- NOTE | 2019-07-22 09:45 | NUR ---
BOOKED ID APPT WITH DR LOCKWOOD FOR 10AM
--- NOTE | 2019-07-22 11:06 | NUR ---
PHARMACY NOTIFIED THAT VANCO IS BEIN GIVEN LATE DUE TO MAG INFUSING
--- NOTE | 2019-07-22 11:45 | NUR ---
PT SITTING UP IN CHAIR AND SET UP FOR NOON MEAL. SPOUSE AT BEDSIDE. WILL CONTINUE TO MONITOR,.
--- NOTE | 2019-07-22 14:20 | NUR ---
PT SITITNG UP IN CHAIR AT BEDSIDE. SPOUSE AT BEDSIDE. RESP ARE EVEN AND UNLABORED.NO DISTRESS NOTED. CALL LIGHT IN REACH. WILL CONTINUE TO MONITOR.
--- NOTE | 2019-07-22 15:00 | NUR ---
ID CONSULT COMPLETED WITH DR LOCKWOOD
--- NOTE | 2019-07-22 15:14 | NUR ---
DR HOPKINS NOTIFIED OF CONSULT AND RECOMMENDATIONS
--- NOTE | 2019-07-22 15:26 | NUR ---
PT SITTING UP IN CHAIR AT BEDSIDE. RESP ARE EVEN AND UNLABORED. NO DISTRESS NOTED. CALL LIGHT IN REACH. WILL CONTINUE TO MONITOR
--- NOTE | 2019-07-22 15:55 | NUR ---
PT TO RADIOLOGY FOR CT SCAN
[2019-07-23] VITALS (7 sets, daily range): BP systolic 139–167; BP diastolic 66–78
--- NOTE | 2019-07-23 05:40 | NUR ---
CPT DONE TO POSTERIOR RIGHT LUNG COOK. NON-PRODUCTIVE COUGH. TOLERATED WELL.
--- NOTE | 2019-07-23 07:00 | NUR ---
PT SITTING UP IN CHAIR AT BEDSIDE. PT IS ALERT AND ORIENTED X3. SHIFT ASSESSMENT COMPLETED AT THIS TIME. IV PATENT X1. CALL LIGHT IN REACH. WILL CONTINUE TO MONITOR.
[2019-07-23 07:31] LABS: ANION GAP 12 (6-22 (CALC)); BUN 11 mg/dL (8-23); BUN/CREATININE RATIO 11 (12-20 (CALC)); CARBON DIOXIDE 20 mmol/l (22-30); CHLORIDE 113 mmol/l (95-108); GFR > 60 ML/MIN (>=60 (CALC)); GFR FOR AFR.AMER. > 60 ML/MIN (>=60 (CALC)); MAGNESIUM 1.7 mg/dL (1.6-2.3); POTASSIUM 3.9 mmol/l (3.5-5.1); SODIUM 141 mmol/l (137-146)
--- NOTE | 2019-07-23 08:45 | NUR ---
DR HOPKINS INTO ROOM TO DISCUSS PLAN OF CARE.
--- NOTE | 2019-07-23 10:00 | NUR ---
ID CONSULT COMPLETED WITH DR LOCKWOOD. DR GONZALEZ NOTIFIED OF RECOMMENDATIONS NEW ORDERS RECEIVED
--- NOTE | 2019-07-23 11:00 | NUR ---
LAB AT BEDSIDE FOR BLOOD CULTURES
--- NOTE | 2019-07-23 11:30 | NUR ---
PT SET UP FOR NOON MEAL
--- NOTE | 2019-07-23 11:51 | NUR ---
PT ASSISTED BACK TO BED. ECHO AT BEDSIDE AT THIS TIME
--- NOTE | 2019-07-23 14:00 | NUR ---
PT RESTING IN BED SPOUSE AT BEDSIDE. RESP ARE EVEN AND UNALBORED. NO DSITRESS NOTED. CALL LIGHT IN REACH. WILL CONTINUE TO MONITOR.
--- NOTE | 2019-07-23 15:00 | NUR ---
PT CLEANSED OF LOOSE BM AND URINARY INCONTINENCE. WILL CONTINUE TO MONITOR
--- NOTE | 2019-07-23 16:20 | NUR ---
PT RESTING IN BED WITH EYESCLOSED. AROUSES EASILY TO VERBAL STIMULI. RESP ARE EVEN AND UNLABORED. NO DISTRESS NOTED. CALL LIGHT IN REACH. WILL CONTINUE TO MONITOR
--- NOTE | 2019-07-23 17:39 | NUR ---
PT SET UP FOR PM MEAL
--- NOTE | 2019-07-23 18:14 | NUR ---
DR HOPKINS AT BEDSIDE AT THIS TIME
--- NOTE | 2019-07-23 18:59 | NUR ---
CPT DONE AFTER BREATHING TREATMENT.
--- NOTE | 2019-07-23 19:00 | NUR ---
REPORT RECEIVED FROM UNA EDGAR. PT SITTING UP IN BED WATCHING TV; ALERT AND ORIENTED. SLIGHTLY LEANING TO THE RIGHT; PT REPORTS THAT HE DOES HAVE A SLIGHT DEFICIT R/T HX OF CVA; NEURO EXAM WNL OTHERWISE. C/O SOME HEEL PAIN; HEELS ELEVATED ON PILLOW WITH GOOD EFFECT AND SOME BLANCHABLE REDNESS NOTED. RESPIRATIONS EVEN AND UNLABORED ON OXYGEN VIA NC 2L. PLAN OF CARE REVIEWED. PT ENCOURAGED TO VERBALIZE CONCERNS. STATES UNDERSTANDING. SAFETY MEASURES IN PLACE. CALL LIGHT WITHIN REACH.
--- NOTE | 2019-07-23 19:30 | NUR ---
PHOTO TAKEN OF CLOSED ABDOMINAL INCISION WITH REDNESS WARMTH AND DRIED DRAINAGE; BRIONNA INTACT AND NO FRESH DRAINIAGE; PHOTO PLACED IN CHART. PHOTO ALSO OBTAINED OF MILD REDNESS TO BUTT AND SMALL OPEN AREA RIGHT ABOVE RECTUM. PT HAD SMALL INCONTINENT BOWEL MOVEMENT; HYGIENE PROVIDED.
--- NOTE | 2019-07-23 21:00 | NUR ---
PT SWALLOWED PO MEDS WITHOUT DIFFICULTY. IV FLUIDS INFUSING AND IV SITE APPEARS HEATLHY. MOIST COUGH NOTED; NON PRODUCTIVE. PT USED CALL LIGHT TO VOID IN URINAL.
--- NOTE | 2019-07-23 22:45 | NUR ---
RT AT BEDSIDE FOR BREATHING TREATMENT.
[2019-07-24] VITALS (13 sets, daily range): BP systolic 139–172; BP diastolic 57–75
--- NOTE | 2019-07-24 01:00 | NUR ---
PT ASLEEP AT THIS TIME WITH NO SIGNS OF DISTRESS. RESPIRATIONS EVEN AND UNLABORED ON OXYGEN. VSS. ASSISTED WITH REPOSITIONING. NO REQUESTS OR CONCERNS AT THIS TIME. WEAK COUGH NOTED; NON PRODUCTIVE. SAFETY MEASURES IN PLACE. CALL LIGHT WITHIN REACH.
--- NOTE | 2019-07-24 03:49 | NUR ---
RT AT BEDSIDE FOR BREATHING TREATMENT.
--- NOTE | 2019-07-24 05:07 | NUR ---
COMPLETE BED BATH GIVEN AND LINENS CHANGED. PT INCONTINENT OF SMALL SOFT BOWEL MOVEMENT. CALLS FOR USE OF URINAL, BUT HAS DIFFICULTY AND NEEDS ASSISTANCE. POSITIONED WITH PILLOWS ON LEFT SIDE. CALL LIGHT WITHIN REACH.
--- NOTE | 2019-07-24 06:45 | NUR ---
RECIEVED REPORT FROM UNA PALMER. ASSUMED PT CARE.
--- NOTE | 2019-07-24 07:15 | NUR ---
PT RESTING IN BED, A&0 X3, ABLE TO MAKE NEEDS KNOWN. RESPIRATIONS EVEN/UNLABORED, SAO2@95% ON 2LPM VIA NC, LS DIMINISHED THROUGHOUT, NON-PRODUCTIVE COUGH CONTINUES. PT DENIES CP, SOB OR DISTRESS AT THIS TIME. REMAINS SR ON TELEMETRY WITH OCCAS PAC'S & PVC'S. HR 97. BS X4 ACTIVE, LBM 07-24-19. PT CONTINUES WITH L SIDE DEFICIT FROM PREVIOUS CVA, CALL LIGHT IN REACH. WILL MONITOR.
--- NOTE | 2019-07-24 09:15 | NUR ---
DR. HOPKINS AT BEDSIDE FOR ASSESSMENT AND TO DISCUSS PLAN OF CARE. NEW ORDERS RECIEVED.
--- NOTE | 2019-07-24 10:26 | NUR ---
PT TO GO DOWN FOR CT, HERMELINDA FROM RADIOLOGY NOTIFIED TO BRING CONTRAST. PT AWARE.
--- NOTE | 2019-07-24 11:45 | NUR ---
PT CALLED, CODE RECIEVED, UPDATE GIVEN. CONCERNED ABOUT PT BEING DISCHARGED TO HOME AND SHE STATED SHE CAN NOT TAKE CARE OF HIM. REFERRED TO CASE MANAGEMENT.
--- NOTE | 2019-07-24 12:30 | NUR ---
PT DOWN TO CT
--- NOTE | 2019-07-24 13:22 | NUR ---
PT BACK FROM CT.
--- NOTE | 2019-07-24 14:14 | NUR ---
PT RESTING NIB ED WITH EYS CLOSED. CALL LIGHT IN REACH. WILL MONITOR.
--- NOTE | 2019-07-24 15:52 | NUR ---
PT INC OF B& B, COMPLETE BED BATH, GOWN AND LINEN CHANGE. PT TOLERATED WELL. CALL LIGHT IN REACH. WILL MONITOR.
--- NOTE | 2019-07-24 18:00 | NUR ---
PT INC OF B&b, GOOD RODNEY CARE PROVIDED. PT TOLERATED WELL. CALL LIGHT IN REACH. WILL MONITOR.
--- NOTE | 2019-07-24 19:03 | NUR ---
REPORT RECEIVED FROM UNA PRICE. PT SITTING UP IN BED; ALERT AND ORIENTED. DENIES PAIN. RESPIRATIONS EVEN AND UNLABORED ON OXYGEN 2L VIA NC. PLAN OF CARE REVIEWED. PT ENCOURAGED TO VERBALIZE CONCERNS. STATES UNDERSTANDING. SAFETY MEASURES IN PLACE. CALL LIGHT WITHIN REACH.
--- NOTE | 2019-07-24 21:00 | NUR ---
PT TOOK MEDICATIONS WITH SOME COUGHING; STATES THAT TABLETS WENT DOWN. HOB ELEVATED. NO REQUESTS OR CONCERNS AT THIS TIME.
--- NOTE | 2019-07-24 23:02 | NUR ---
RT AT BEDSIDE FOR BREATHING TREATMENT.
--- NOTE | 2019-07-25 00:47 | NUR ---
PT VOIDED IN URINAL WITH SOME INCONTINENCE; ALSO INCONTINENT OF SMALL SOFT BOWEL MOVEMENT; HYGEINE PROVIDED AND LINENS CHANGED. VSS. IV FLUIDS INFUSING WITHOUT DIFFICUTLY; IV SITE TO RW APPEARS HEALHY. ONLY REQUEST AT THIS TIME IS FOR A GINGERALE; PROVIDED. CALL LIGHT WITHIN REACH.
[2019-07-25 02:00] VITALS: BP 179/80
--- NOTE | 2019-07-25 03:30 | NUR ---
RT AT BEDSIDE FOR BREATHING TREATMENT.
--- NOTE | 2019-07-25 04:52 | NUR ---
PT ASLEEP AT THIS TIME IN SEMI FOWLERS; NO SIGNS OF DISTRESS. RESPIRATIONS EVEN AND UNLABORED ON OXYGEN; NON PRODUCTIVE COUGH CONTINUES. NSR WITH PVCS ON TELEMETRY. BLOOD PRESSURE WAS ELEATED THROUGH THE NIGHT AND IS NOW 160/78 HR IN THE 80S. WILL CONTINUE TO MONITOR.
[2019-07-25 04:54] VITALS: BP 160/78
--- NOTE | 2019-07-25 05:00 | NUR ---
LAB AT BEDSIDE.
[2019-07-25 05:30] LABS: HEMATOCRIT 30.9 % (39.0-50.0); HEMOGLOBIN 9.7 g/dl (14.0-18.0); MEAN CELL VOLUME 94.5 fL CALC (80.0-100.0); MEAN CORPUSCULAR HGB 29.7 pG CALC (26.0-32.0); MEAN CORPUSCULAR HGB CONC 31.4 g/L CALC (32.0-36.0); RED BLOOD COUNT 3.27 mill/uL (4.70-6.10); RED CELL DISTRI WIDTH 15.8 % (11.5-15.5)
[2019-07-25 05:59] LABS: ANION GAP 15 (6-22 (CALC)); BUN 10 mg/dL (8-23); BUN/CREATININE RATIO 11 (12-20 (CALC)); CARBON DIOXIDE 19 mmol/l (22-30); CHLORIDE 109 mmol/l (95-108); GFR > 60 ML/MIN (>=60 (CALC)); GFR FOR AFR.AMER. > 60 ML/MIN (>=60 (CALC)); POTASSIUM 3.7 mmol/l (3.5-5.1); SODIUM 139 mmol/l (137-146)
[2019-07-25 06:00] VITALS: BP 172/84
[2019-07-25] MEDS ORDERED: DAPTOMYCIN500 MG IV (07:34)
[2019-07-25] MEDS ORDERED: AMOX/K CLAV875 M1 PO (07:34)
[2019-07-25] MEDS ORDERED: METRONIDAZOL500 MG PO (07:34)
[2019-07-25] MEDS ORDERED: PERCOCET 5/325M1 TAB PO (07:34)
--- NOTE | 2019-07-25 08:00 | NUR ---
PT SEEN AWAKE, ALERT, ORIENTED X 3, ALTHOUGH WEAK CHRONICALLY. PT HAS PRODUCTIVE COUGH, LUNGS ARE COARSE AND DIMINISHED, 2 LPM. PT IS INCONTINENT OF STOOL, HAS HAD BM TODAY. MONITOR SHOWS SINUS RHYTHM.
[2019-07-25 08:42] VITALS: BP 172/84
--- NOTE | 2019-07-25 12:00 | NUR ---
PT SEEN BY DR HOPKINS THIS MORNING, HOPING TO TRANFER PT TO [facility]. 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 PT HAS HAD ANOTHER SOFT STOOL. HAS BEEN IN AND OUT INTERMITTENTLY HOPING TO SEE DR HOPKINS, BUT HAS MISSED HIM SO FAR.
--- NOTE | 2019-07-25 16:54 | NUR ---
REPORT PROVIDED TO MINI AT [facility]. BELONGINGS PLACED IN BAGS, ZOSYN GIVEN A BIT EARLY TO COMPLETE BEFORE LEAVING. PT DENIES PAIN.
--- NOTE | 2019-07-25 17:16 | NUR ---
PT LEAVES AT THIS TIME FOR [facility]. PT LEAVES WITH BELONGINGS WHICH INCLUDE CLOTHES, DENTURES, CELL PHONE. PT LEAVES WITH STAFF FROM [facility] IN THEIR WHEELCHAIR.
== END 2019-07-25 17:15 | DRG 871 ==
LOC: ED 06:02 → ED-I 06:41 → ED 08:03 → ICU 08:04
PROVIDERS: Emergency Medicine; Internal Medicine; Nurse Practitioner Family; ADMIT Internal Medicine; ATTEND Internal Medicine
DX: A41.81 Sepsis due to Enterococcus (principal); J69.0 Pneumonitis due to inhalation of food and vomit; I13.0 Hypertensive heart and chronic kidney disease with heart failure and stage 1 through stage 4 chronic kidney disease, or unspecified chronic kidney disease; I48.20 Chronic atrial fibrillation, unspecified; J44.1 Chronic obstructive pulmonary disease with (acute) exacerbation; I50.9 Heart failure, unspecified; E11.22 Type 2 diabetes mellitus with diabetic chronic kidney disease; N18.3 Chronic kidney disease, stage 3 (moderate); I69.992 Facial weakness following unspecified cerebrovascular disease; I69.934 Monoplegia of upper limb following unspecified cerebrovascular disease affecting left non-dominant side; I69.991 Dysphagia following unspecified cerebrovascular disease; R13.12 Dysphagia, oropharyngeal phase; F32.9 Major depressive disorder, single episode, unspecified; K21.9 Gastro-esophageal reflux disease without esophagitis; N40.1 Benign prostatic hyperplasia with lower urinary tract symptoms; N39.498 Other specified urinary incontinence; M10.9 Gout, unspecified; E83.42 Hypomagnesemia; R19.7 Diarrhea, unspecified; Z87.01 Personal history of pneumonia (recurrent); Z87.891 Personal history of nicotine dependence; Z91.81 History of falling; Z53.20 Procedure and treatment not carried out because of patient's decision for unspecified reasons
CPT/HCPCS: J0131; J0878; J1650; J3370; J3475; Q3014; Q9967

== ENCOUNTER 2019-08-03 16:50 | Inpatient (IN) | payer MEDICARE, OTHER ==
[~2019-08-03] VITALS: Ht 175.3 cm; Wt 88.0 kg
[~2019-08-03 16:50] MED LIST changes: +AMOX/K CLAV875 M1 PO; +COQ PO; +DAPTOMYCIN500 MG IV; +METRONIDAZOL500 MG PO; +MULTI VITAMIN1 TAB PO; +POTASSIUM99 MG PO
[2019-08-03 17:44] LABS: HEMATOCRIT 33.5 % (39.0-50.0); HEMOGLOBIN 10.4 g/dl (14.0-18.0); IMMATURE GRANULOCYTES 0.2 % (0.0-5.0); MEAN CELL VOLUME 93.8 fL CALC (80.0-100.0); MEAN CORPUSCULAR HGB 29.1 pG CALC (26.0-32.0); NEUT# 4.62 thou/uL (1.82-7.42); RED BLOOD COUNT 3.57 mill/uL (4.70-6.10); RED CELL DISTRI WIDTH 16.3 % (11.5-15.5)
[2019-08-03 17:57] LABS: INTERNATIONAL NORMALIZED RATIO 1.1 RATIO (0.7-1.3); PROTHROMBIN TIME 11.4 SECONDS (9.0-12.5)
[2019-08-03 18:00] LABS: GFR 58 ML/MIN (>=60 (CALC)); GFR FOR AFR.AMER. > 60 ML/MIN (>=60 (CALC))
[2019-08-03 18:54] LABS: ALKALINE PHOSPHATASE 66 u/l (38-126); BILIRUBIN, TOTAL 0.3 mg/dL (0.0-1.4); BUN 14 mg/dL (8-23); BUN/CREATININE RATIO 12 (12-20 (CALC)); CHLORIDE 106 mmol/l (95-108); CREATININE 1.2 mg/dL (0.7-1.3); GFR 58 ML/MIN (>=60 (CALC)); GFR FOR AFR.AMER. > 60 ML/MIN (>=60 (CALC)); POTASSIUM 4.1 mmol/l (3.5-5.1); SGOT/AST 23 u/l (19-48); SODIUM 140 mmol/l (137-146)
[2019-08-03 18:55] LABS: ALBUMIN 3.6 g/dL (3.2-5.0); ANION GAP 13 (6-22 (CALC)); CARBON DIOXIDE 25 mmol/l (22-30); TOTAL PROTEIN 7.1 g/dL (6.3-8.2)
[2019-08-03 21:15] VITALS: BP 175/70
[2019-08-03 21:30] VITALS: BP 166/77
[2019-08-03 21:45] VITALS: BP 173/68
[2019-08-03 22:00] VITALS: BP 152/66
[2019-08-03 22:37] LABS: URINE BILIRUBIN - DIPSTICK NEGATIVE (NEGATIVE); URINE BLOOD DIPSTICK NEGATIVE (NEGATIVE); URINE COLOR YELLOW; URINE GLUCOSE - DIPSTICK NEGATIVE (NEGATIVE); URINE KETONE NEGATIVE (NEGATIVE); URINE NITRITE - DIPSTICK NEGATIVE (Negative); URINE PH 5.5 (4.5-8.0); URINE PROTEIN - DIPSTICK TRACE mg/dL (NEG-TRACE); URINE SPECIFIC GRAVITY 1.025; URINE UROBILINOGEN - DIPSTICK 0.2 E.U./dL (0.2)
[2019-08-03 22:44] LABS: URINE LEUK ESTERASE SMALL (NEGATIVE)
[2019-08-03 22:52] LABS: URINE SQUAMOUS EPITHELIAL CELL FEW EPI/hpf (0-FEW)
[2019-08-03 23:00] VITALS: BP 195/72
[2019-08-04] VITALS (15 sets, daily range): BP systolic 119–175; BP diastolic 58–84
[2019-08-05] VITALS (11 sets, daily range): BP systolic 97–174; BP diastolic 51–76
[2019-08-06 04:00] VITALS: BP 113/62
[2019-08-06 05:39] LABS: HEMATOCRIT 36.1 % (39.0-50.0); HEMOGLOBIN 11.6 g/dl (14.0-18.0); MEAN CELL VOLUME 92.8 fL CALC (80.0-100.0); MEAN CORPUSCULAR HGB 29.8 pG CALC (26.0-32.0); MEAN CORPUSCULAR HGB CONC 32.1 g/L CALC (32.0-36.0); RED BLOOD COUNT 3.89 mill/uL (4.70-6.10); RED CELL DISTRI WIDTH 16.5 % (11.5-15.5)
[2019-08-06 05:59] LABS: ANION GAP 13 (6-22 (CALC)); BUN 17 mg/dL (8-23); BUN/CREATININE RATIO 13 (12-20 (CALC)); CARBON DIOXIDE 22 mmol/l (22-30); CHLORIDE 106 mmol/l (95-108); CREATININE 1.3 mg/dL (0.7-1.3); GFR 53 ML/MIN (>=60 (CALC)); GFR FOR AFR.AMER. > 60 ML/MIN (>=60 (CALC)); POTASSIUM 4.1 mmol/l (3.5-5.1); SODIUM 137 mmol/l (137-146)
[2019-08-06 07:46] VITALS: BP 142/71
[2019-08-06 11:07] VITALS: BP 104/56
[2019-08-06 15:35] VITALS: BP 121/64
[2019-08-06] MEDS ORDERED: PIPER/TAZOBA1 IN1 IV (15:38)
[2019-08-06 18:44] VITALS: BP 149/71
[2019-08-07 00:20] VITALS: BP 140/72
[2019-08-07 04:36] VITALS: BP 110/50
[2019-08-07 09:02] VITALS: BP 101/57
[2019-08-07] MEDS ORDERED: PERCOCET 5/325M1 TAB PO (10:19)
[2019-08-07 11:20] VITALS: BP 112/61
== END 2019-08-07 13:18 | DRG 69 ==
LOC: ED 16:50 → ED-I 18:29 → ED 19:07 → ICU 19:08 → MS2 08-05 15:44
PROVIDERS: Family Medicine; Internal Medicine; ADMIT Internal Medicine; ATTEND Internal Medicine
DX: G45.9 Transient cerebral ischemic attack, unspecified (principal); J69.0 Pneumonitis due to inhalation of food and vomit; I13.0 Hypertensive heart and chronic kidney disease with heart failure and stage 1 through stage 4 chronic kidney disease, or unspecified chronic kidney disease; N39.0 Urinary tract infection, site not specified; J44.9 Chronic obstructive pulmonary disease, unspecified; E11.22 Type 2 diabetes mellitus with diabetic chronic kidney disease; N18.2 Chronic kidney disease, stage 2 (mild); K21.9 Gastro-esophageal reflux disease without esophagitis; I50.9 Heart failure, unspecified; R13.12 Dysphagia, oropharyngeal phase; N40.0 Benign prostatic hyperplasia without lower urinary tract symptoms; B96.5 Pseudomonas (aeruginosa) (mallei) (pseudomallei) as the cause of diseases classified elsewhere; I48.0 Paroxysmal atrial fibrillation; Z86.73 Personal history of transient ischemic attack (TIA), and cerebral infarction without residual deficits; Z87.01 Personal history of pneumonia (recurrent); Z87.891 Personal history of nicotine dependence
CPT/HCPCS: Q3014

== ENCOUNTER 2019-12-23 | Emergency (ER) | payer MEDICARE, OTHER ==
[~2019-12-23] MED LIST changes: +PIPER/TAZOBA1 IN1 IV
[2019-12-23 09:56] LABS: HEMOGLOBIN 10.1 g/dl (14.0-18.0); IMMATURE GRANULOCYTES 0.4 % (0.0-5.0); MEAN CELL VOLUME 94.6 fL CALC (80.0-100.0); MEAN CORPUSCULAR HGB 31.9 pG CALC (26.0-32.0); MEAN CORPUSCULAR HGB CONC 33.7 g/dL CAL (32.0-36.0); NEUT# 11.27 thou/uL (1.82-7.42); RED BLOOD COUNT 3.17 mill/uL (4.70-6.10); RED CELL DISTRI WIDTH 14.7 % (11.5-15.5)
[2019-12-23] MEDS ORDERED: XARELTO10 MG PO (10:16)
[2019-12-23] MEDS ORDERED: OMEPRAZOLE DR40 MG PO (10:17)
[2019-12-23 10:52] LABS: ALBUMIN 3.3 g/dL (3.2-5.0); ALKALINE PHOSPHATASE 104 u/l (38-126); AMYLASE 52 u/l (30-110); ANION GAP 10 (6-22 (CALC)); BILIRUBIN, TOTAL 0.5 mg/dL (0.0-1.4); BUN 30 mg/dL (8-23); BUN/CREATININE RATIO 25 (12-20 (CALC)); CARBON DIOXIDE 21 mmol/l (22-30); CHLORIDE 110 mmol/l (95-108); CREATININE 1.2 mg/dL (0.7-1.3); GFR 58 ML/MIN (>=60 (CALC)); GFR FOR AFR.AMER. > 60 ML/MIN (>=60 (CALC)); POTASSIUM 4.3 mmol/l (3.5-5.1); SGOT/AST 21 u/l (19-48); SODIUM 137 mmol/l (137-146); TOTAL PROTEIN 6.3 g/dL (6.3-8.2)
[2019-12-23 11:04] LABS: MYOGLOBIN 100 ng/mL (0 - 121)
[2019-12-23 12:00] LABS: URINE BILIRUBIN - DIPSTICK NEGATIVE (NEGATIVE); URINE BLOOD DIPSTICK TRACE-INTACT (NEGATIVE); URINE COLOR YELLOW; URINE GLUCOSE - DIPSTICK NEGATIVE (NEGATIVE); URINE KETONE NEGATIVE (NEGATIVE); URINE NITRITE - DIPSTICK NEGATIVE (Negative); URINE PH 5.5 (4.5-8.0); URINE PROTEIN - DIPSTICK NEGATIVE (NEG-TRACE); URINE SPECIFIC GRAVITY 1.015; URINE UROBILINOGEN - DIPSTICK 0.2 E.U./dL (0.2)
[2019-12-23 12:08] LABS: URINE LEUK ESTERASE TRACE (NEGATIVE)
[2019-12-23] MEDS ORDERED: BACTRIM DS1 TAB PO ×2 (12:11)
[2019-12-23] MEDS ORDERED: ONDANSETRON4 MG PO ×2 (12:11)
--- NOTE | 2019-12-26 09:55 | NUR ---
Notified patient of Covid results (Negative.) Advised patient to follow up with PCP or return to the ED for urgent needs. Advised patient to continue with Covid prevention measures. Patient verbalized understanding.
== END 2019-12-23 13:39 | disposition home or self-care (01) ==
PROVIDERS: Emergency Medicine
DX: R11.10 Vomiting, unspecified (principal); I10 Essential (primary) hypertension; J44.9 Chronic obstructive pulmonary disease, unspecified; E11.9 Type 2 diabetes mellitus without complications; Z86.73 Personal history of transient ischemic attack (TIA), and cerebral infarction without residual deficits; Z20.828 Contact with and (suspected) exposure to other viral communicable diseases

== ENCOUNTER 2020-02-26 08:13 | Day surgery (SDC) | payer MEDICARE, OTHER ==
[~2020-02-26] VITALS: Ht 175.3 cm; Wt 72.6 kg
[~2020-02-26 08:13] MED LIST changes: +BACTRIM DS1 TAB PO; +OMEPRAZOLE DR40 MG PO; +ONDANSETRON4 MG PO; +XARELTO10 MG PO
[2020-02-26 09:22] LABS: ALBUMIN 2.8 g/dL (3.2-5.0); ALKALINE PHOSPHATASE 137 u/l (38-126); ANION GAP 8 (6-22 (CALC)); BILIRUBIN, TOTAL 0.4 mg/dL (0.0-1.4); BUN 33 mg/dL (8-23); BUN/CREATININE RATIO 30 (12-20 (CALC)); CARBON DIOXIDE 19 mmol/l (22-30); CHLORIDE 112 mmol/l (95-108); CREATININE 1.1 mg/dL (0.7-1.3); GFR > 60 ML/MIN (>=60 (CALC)); GFR FOR AFR.AMER. > 60 ML/MIN (>=60 (CALC)); POTASSIUM 4.3 mmol/l (3.5-5.1); SGOT/AST 24 u/l (19-48); SODIUM 135 mmol/l (137-146); TOTAL PROTEIN 5.6 g/dL (6.3-8.2)
[2020-02-26] MEDS ORDERED: PERCOCET 5/325M1 TAB PO (11:18)
[2020-02-26 12:19] VITALS: BP 129/59
== END 2020-02-26 12:20 | disposition home or self-care (01) ==
LOC: ORM 08:13
PROVIDERS: ATTEND Surgery
PROC: 0WUF0JZ Supplement Abdominal Wall with Synthetic Substitute, Open Approach (ICD-10-PCS; principal; 2020-02-26)
DX: K43.2 Incisional hernia without obstruction or gangrene (principal); J44.9 Chronic obstructive pulmonary disease, unspecified; I10 Essential (primary) hypertension; E11.9 Type 2 diabetes mellitus without complications; Z86.73 Personal history of transient ischemic attack (TIA), and cerebral infarction without residual deficits; Z11.59 Encounter for screening for other viral diseases
CPT/HCPCS: J0131; J1100

== ENCOUNTER 2020-04-21 09:04 | Observation (INO) | payer MEDICARE, OTHER ==
[~2020-04-21] VITALS: Ht 175.3 cm; Wt 72.0 kg
[2020-04-21] MEDS ORDERED: MIDODRINE5 MG PO (09:20)
[2020-04-21] MEDS ORDERED: SPIRIVA RE2.5 MCG/AC INHW/SPAC (09:25)
[2020-04-21 09:39] LABS: HEMATOCRIT 30.5 % (39.0-50.0); HEMOGLOBIN 9.7 g/dl (14.0-18.0); IMMATURE GRANULOCYTES 0.4 % (0.0-5.0); MEAN CORPUSCULAR HGB 32.1 pG CALC (26.0-32.0); MEAN CORPUSCULAR HGB CONC 31.8 g/dL CAL (32.0-36.0); NEUT# 4.12 thou/uL (1.82-7.42); RED BLOOD COUNT 3.02 mill/uL (4.70-6.10); RED CELL DISTRI WIDTH 16.8 % (11.5-15.5)
[2020-04-21 09:57] LABS: ALKALINE PHOSPHATASE 157 u/l (38-126); ANION GAP 4 (6-22 (CALC)); BILIRUBIN, TOTAL 0.4 mg/dL (0.0-1.4); BUN 23 mg/dL (8-23); BUN/CREATININE RATIO 20 (12-20 (CALC)); CARBON DIOXIDE 22 mmol/l (22-30); CHLORIDE 112 mmol/l (95-108); CREATININE 1.2 mg/dL (0.7-1.3); GFR 58 ML/MIN (>=60 (CALC)); GFR FOR AFR.AMER. > 60 ML/MIN (>=60 (CALC)); SGOT/AST 33 u/l (19-48); SODIUM 133 mmol/l (137-146); TOTAL PROTEIN 4.7 g/dL (6.3-8.2)
[2020-04-21 10:08] LABS: ALBUMIN 2.2 g/dL (3.2-5.0)
[2020-04-21 12:45] VITALS: BP 116/49
[2020-04-21 16:40] VITALS: BP 129/65
[2020-04-21 16:50] VITALS: BP 122/51
[2020-04-21 17:30] VITALS: BP 128/56
[2020-04-21 18:51] VITALS: BP 110/57
[2020-04-22] VITALS (7 sets, daily range): BP systolic 104–152; BP diastolic 58–70
[2020-04-22 01:14] LABS: URINE BILIRUBIN - DIPSTICK NEGATIVE (NEGATIVE); URINE BLOOD DIPSTICK NEGATIVE (NEGATIVE); URINE COLOR YELLOW; URINE GLUCOSE - DIPSTICK NEGATIVE (NEGATIVE); URINE KETONE NEGATIVE (NEGATIVE); URINE LEUK ESTERASE NEGATIVE (NEGATIVE); URINE NITRITE - DIPSTICK NEGATIVE (Negative); URINE PH 5.5 (4.5-8.0); URINE PROTEIN - DIPSTICK NEGATIVE (NEG-TRACE); URINE UROBILINOGEN - DIPSTICK 0.2 E.U./dL (0.2)
[2020-04-22 04:54] LABS: HEMOGLOBIN 9.9 g/dl (14.0-18.0); IMMATURE GRANULOCYTES 0.3 % (0.0-5.0); MEAN CELL VOLUME 102.6 fL CALC (80.0-100.0); MEAN CORPUSCULAR HGB 31.7 pG CALC (26.0-32.0); MEAN CORPUSCULAR HGB CONC 30.9 g/dL CAL (32.0-36.0); NEUT# 3.77 thou/uL (1.82-7.42); RED BLOOD COUNT 3.12 mill/uL (4.70-6.10); RED CELL DISTRI WIDTH 16.9 % (11.5-15.5)
[2020-04-22 05:21] LABS: ALBUMIN 1.8 g/dL (3.2-5.0); ALKALINE PHOSPHATASE 127 u/l (38-126); ANION GAP 3 (6-22 (CALC)); BILIRUBIN, TOTAL 0.3 mg/dL (0.0-1.4); BUN 21 mg/dL (8-23); BUN/CREATININE RATIO 23 (12-20 (CALC)); CARBON DIOXIDE 18 mmol/l (22-30); CHLORIDE 116 mmol/l (95-108); CREATININE 0.9 mg/dL (0.7-1.3); GFR > 60 ML/MIN (>=60 (CALC)); GFR FOR AFR.AMER. > 60 ML/MIN (>=60 (CALC)); POTASSIUM 3.6 mmol/l (3.5-5.1); SGOT/AST 28 u/l (19-48); SODIUM 134 mmol/l (137-146)
[2020-04-23 03:25] VITALS: BP 117/64
[2020-04-23 05:30] LABS: HEMOGLOBIN 9.8 g/dl (14.0-18.0); MEAN CELL VOLUME 99.4 fL CALC (80.0-100.0); MEAN CORPUSCULAR HGB 31.4 pG CALC (26.0-32.0); MEAN CORPUSCULAR HGB CONC 31.6 g/dL CAL (32.0-36.0); RED BLOOD COUNT 3.12 mill/uL (4.70-6.10); RED CELL DISTRI WIDTH 16.7 % (11.5-15.5)
[2020-04-23 05:48] LABS: BUN 22 mg/dL (8-23); BUN/CREATININE RATIO 19 (12-20 (CALC)); CHLORIDE 110 mmol/l (95-108); CREATININE 1.1 mg/dL (0.7-1.3); GFR > 60 ML/MIN (>=60 (CALC)); GFR FOR AFR.AMER. > 60 ML/MIN (>=60 (CALC)); POTASSIUM 3.4 mmol/l (3.5-5.1); SODIUM 133 mmol/l (137-146)
[2020-04-23 05:49] LABS: ANION GAP 2 (6-22 (CALC)); CARBON DIOXIDE 24 mmol/l (22-30)
[2020-04-23 07:56] VITALS: BP 163/72
[2020-04-23 10:49] VITALS: BP 122/66
== END 2020-04-23 14:28 ==
LOC: ED 09:04 → ED-I 11:05 → ED 11:18 → MS2 11:19
PROVIDERS: Family Medicine; Nurse Practitioner; ADMIT Internal Medicine; ATTEND Internal Medicine
PROC: 0T9B70Z Drainage of Bladder with Drainage Device, Via Natural or Artificial Opening (ICD-10-PCS; principal; 2020-04-22)
DX: R55 Syncope and collapse (principal); R42 Dizziness and giddiness; R60.0 Localized edema; E11.22 Type 2 diabetes mellitus with diabetic chronic kidney disease; I12.9 Hypertensive chronic kidney disease with stage 1 through stage 4 chronic kidney disease, or unspecified chronic kidney disease; N18.3 Chronic kidney disease, stage 3 (moderate); J44.9 Chronic obstructive pulmonary disease, unspecified; S80.211A Abrasion, right knee, initial encounter; S09.90XA Unspecified injury of head, initial encounter; N40.1 Benign prostatic hyperplasia with lower urinary tract symptoms; R33.8 Other retention of urine; R13.10 Dysphagia, unspecified; I48.20 Chronic atrial fibrillation, unspecified; F32.9 Major depressive disorder, single episode, unspecified; K21.9 Gastro-esophageal reflux disease without esophagitis; D69.2 Other nonthrombocytopenic purpura; W06.XXXA Fall from bed, initial encounter; Y92.003 Bedroom of unspecified non-institutional (private) residence as the place of occurrence of the external cause; Z86.73 Personal history of transient ischemic attack (TIA), and cerebral infarction without residual deficits; Z79.01 Long term (current) use of anticoagulants; Z91.81 History of falling; Z87.01 Personal history of pneumonia (recurrent); Z11.59 Encounter for screening for other viral diseases
CPT/HCPCS: G0378; L0120

== ENCOUNTER 2020-04-24 09:59 | Observation (INO) | payer MEDICARE, OTHER ==
[~2020-04-24] VITALS: Ht 175.3 cm; Wt 68.0 kg
[~2020-04-24 09:59] MED LIST changes: +MIDODRINE5 MG PO; +SPIRIVA RE2.5 MCG/AC INHW/SPAC
--- NOTE | 2020-04-24 10:00 | NUR ---
PT TO ROOM 12 VIA EMS.
[2020-04-24 10:22] LABS: HEMATOCRIT 32.3 % (39.0-50.0); HEMOGLOBIN 10.2 g/dl (14.0-18.0); IMMATURE GRANULOCYTES 0.2 % (0.0-5.0); MEAN CELL VOLUME 101.6 fL CALC (80.0-100.0); MEAN CORPUSCULAR HGB 32.1 pG CALC (26.0-32.0); MEAN CORPUSCULAR HGB CONC 31.6 g/dL CAL (32.0-36.0); NEUT# 4.51 thou/uL (1.82-7.42); RED BLOOD COUNT 3.18 mill/uL (4.70-6.10); RED CELL DISTRI WIDTH 16.9 % (11.5-15.5)
[2020-04-24 10:57] LABS: ALKALINE PHOSPHATASE 135 u/l (38-126); BILIRUBIN, TOTAL 0.4 mg/dL (0.0-1.4); BUN 30 mg/dL (8-23); BUN/CREATININE RATIO 22 (12-20 (CALC)); CARBON DIOXIDE 23 mmol/l (22-30); CHLORIDE 109 mmol/l (95-108); CREATININE 1.4 mg/dL (0.7-1.3); GFR 49 ML/MIN (>=60 (CALC)); GFR FOR AFR.AMER. 59 ML/MIN (>=60 (CALC)); LIPASE 26 u/l (23-300); MAGNESIUM 1.3 mg/dL (1.6-2.3); SGOT/AST 41 u/l (19-48); SODIUM 134 mmol/l (137-146)
--- NOTE | 2020-04-24 11:00 | NUR ---
PT RETURNED FROM RADIOLOGY AT THIS TIME; MONITORING DEVICES REAPPLIED; PT DENIES ANY NEEDS AT THIS TIME; VSS; WILL CONTINUE TO MONITOR
[2020-04-24 11:03] LABS: ACT PARTIAL THROMBO TIME 26.7 SECONDS (20.0-32.5); INTERNATIONAL NORMALIZED RATIO 1.2 RATIO (0.7-1.3)
[2020-04-24 11:09] LABS: ALBUMIN 2.3 g/dL (3.2-5.0); ANION GAP 6 (6-22 (CALC)); POTASSIUM 4.3 mmol/l (3.5-5.1); TOTAL PROTEIN 4.9 g/dL (6.3-8.2)
--- NOTE | 2020-04-24 12:00 | NUR ---
PT RESTING ON STRETCHER WITH EYES CLOSED; VSS; PT DENIES ANY NEEDS AT THIS TIME; ADVISED OF CONTINUED WAIT TIMES
[2020-04-24 12:32] LABS: URINE BILIRUBIN - DIPSTICK NEGATIVE (NEGATIVE); URINE BLOOD DIPSTICK SMALL (NEGATIVE); URINE COLOR YELLOW; URINE GLUCOSE - DIPSTICK NEGATIVE (NEGATIVE); URINE KETONE NEGATIVE (NEGATIVE); URINE LEUK ESTERASE SMALL (NEGATIVE); URINE NITRITE - DIPSTICK NEGATIVE (Negative); URINE PH 5.5 (4.5-8.0); URINE PROTEIN - DIPSTICK NEGATIVE (NEG-TRACE); URINE SPECIFIC GRAVITY 1.015; URINE UROBILINOGEN - DIPSTICK 0.2 E.U./dL (0.2)
[2020-04-24 12:33] LABS: URINE BACTERIA FEW hpf; URINE EPITHELIAL CELLS FEW EPI/hpf (0-FEW)
--- NOTE | 2020-04-24 13:00 | NUR ---
PT WAS ADMITTED TO UNIT VIA STRETCHER. RESIDENT IS ALERT AND ORIENTED AND ABLE TO VERBALIZE NEEDS. SKIN IS WARM TO TOUCH. PT HAS MULTIPLE BRUISING AND SCABBED AREAS ON BILATERAL ARM AND LEGS. LUNS SOUNDS ARE CLEAR IN UPPER LOBES AND DIMINISHED IN LOWER LOBES. HARING AND VISION ADEQUATE. PT STATES HE HAS DENTURES THAT HE LEFT AT HOME WITH . COMPLAINED OF DIZZINESSS DURING ASSESSMENT. TLEMETRY IN PLACE. PT IS PALE IN COLOR AND +2 EDEMA NOTED IN BILAT LOWE EXTREMITIES AND IN BILATERAL HIPS. HAD 1 BOUT OF LOOSE STOOLS UPON ADMISSION TO FLOOR. HAS EMS LINE IN [facility].MD AWARE OF ARRIVAL AND ORDERS NOTED.
--- NOTE | 2020-04-24 13:00 | NUR ---
PT RESTING ON STRETCHER ADVISED OF PENDING ADMISSION; DENIES ANY NEEDS
--- NOTE | 2020-04-24 13:35 | NUR ---
Admission Note Report Given to: UNA ORTIZ Transported by: Wheelchair X Stretcher Transported with: X Nurse Transporter X Patent IV O2 XX Roller Gold Leaf Location: ICU X MS2
[2020-04-24 13:44] VITALS: BP 116/49
[2020-04-24 14:40] VITALS: BP 127/47
--- NOTE | 2020-04-24 17:00 | NUR ---
PT IN BED WITH EYES OPEN EATING DINNER WITH NO COMPLICATIONS NOTED. INCONTINENT OF B/B AND INCONTINENT CARE PROVIDED. WILL CONTINUE TO OBSERVE
[2020-04-24 19:34] VITALS: BP 105/57
--- NOTE | 2020-04-24 20:00 | NUR ---
PATIENT ALERT, VERBAL WITH INT CONFUSION, ABLE TO MAKE NEEDS KNOWN. ABLE TO TOLERATE MEDS WELL WHOLE. INC OF BOWEL AND BLADDER WITH CARE PROVIDED PRN. OUT OF BED DAILY IN ASSIST--UNSTEADY GAIT. NO APPARENT DISTRESS NOTED. RECEIVED IV MG AT BEGINNING OF SHIFT DUE TO A LOW MG LEVEL OF 2.1--TOLERATED WELL--NS INFUSING AT 100ML/HR WELL--PIV SITE PATENT TO LEFT AC--FLUSHES WELL--SITE UNREMARKABLE. CONTINUES TO HAVE 2+ EDEMA TO BLE--NO RESP DISTRESS NOTED. TELEMETRY IN PLACE--SR @ 80. POSITIVE FOR UTI--PENDING C&S AT THIS TIME--ASYMPTOMATIC--AFEBRILE. SAFETY PRECAUTIONS IN PLACE RELATED TO POOR SAFETY AWARENESS. WILL CONT TO MONITOR FOR ANY FURTHER CHANGES.
--- NOTE | 2020-04-25 | NUR ---
PATIENT RESTING SOUNDLY IN BED WITH EYES CLOSED AT THIS TIME. NS INFUSING WITHOUT DIFFICULTY AT 100ML/HR--PIV SITE PATENT--SITE UNREMARKABLE. NO APPARENT DISTRESS NOTED.
[2020-04-25 00:28] VITALS: BP 119/63
--- NOTE | 2020-04-25 02:57 | NUR ---
PATIENT RESTING SOUNDLY IN BED WITH EYES CLOSED AT THIS TIME. NS INFUSING WITHOUT DIFFICULTY AT 100ML/HR--PIV SITE PATENT--SITE UNREMARKABLE. NO APPARENT DISTRESS NOTED.
--- NOTE | 2020-04-25 04:00 | NUR ---
PATIENT CONTINUES TO REST SOUNDLY IN BED WITH EYES CLOSED AT THIS TIME. NO APPARENT DISTRESS NOTED. PIV PATENT--SITE UNREMARKABLE--NS INFUSING WELL @ 100ML/HR--TOLERATING WELL. SAFETY PRECAUTIONS IN PLACE RELATED TO POOR SAFETY AWARENESS. TELEMETRY CONTINUES WITH SINUS GUILLE @ 59. WILL CONT TO MONITOR FOR ANY FURTHER CHANGES.
[2020-04-25 05:12] VITALS: BP 143/71
[2020-04-25 05:56] LABS: ANION GAP 5 (6-22 (CALC)); BUN 26 mg/dL (8-23); BUN/CREATININE RATIO 24 (12-20 (CALC)); CARBON DIOXIDE 21 mmol/l (22-30); CHLORIDE 112 mmol/l (95-108); CREATININE 1.1 mg/dL (0.7-1.3); GFR > 60 ML/MIN (>=60 (CALC)); GFR FOR AFR.AMER. > 60 ML/MIN (>=60 (CALC)); POTASSIUM 4.3 mmol/l (3.5-5.1); SODIUM 135 mmol/l (137-146)
[2020-04-25 06:19] LABS: MAGNESIUM 2.1 mg/dL (1.6-2.3)
--- NOTE | 2020-04-25 08:30 | NUR ---
RECEIVED REPORT FROM SUDHEER. PT IN BED WITH EYES OPEN EATIN BREAKFAST. ABLE TO VERBALIZE NEEDS. SKIN COLOR CONTINUES TO BE PALE. IS AT BEDSIDE AND STATED THAT SHE WOULD LIKE TO SPEAK TO CASE MANAGEMENT REGARDING PT GOING TO REHAB INSTEAD OF GOING HOME. WILL CONTINUE TO OBSERVE
[2020-04-25 09:33] VITALS: BP 126/45
[2020-04-25 11:10] VITALS: BP 106/51
[2020-04-25 15:08] VITALS: BP 102/40
[2020-04-25 19:29] VITALS: BP 129/49
--- NOTE | 2020-04-25 20:00 | NUR ---
PATIENT ALERT, VERBAL WITH INT CONFUSION, ABLE TO MAKE NEEDS KNOWN. ABLE TO TOLERATE MEDS WELL WHOLE. INC OF BOWEL AND BLADDER WITH CARE PROVIDED PRN. OUT OF BED DAILY IN ASSIST--UNSTEADY GAIT. NO APPARENT DISTRESS NOTED. PIV SITE PATENT TO LEFT AC--FLUSHES WELL--SITE UNREMARKABLE. CONTINUES TO HAVE 1+ EDEMA TO BILATERAL UPPER AND LOWER EXTREMITIES--NO RESP DISTRESS NOTED. TELEMETRY IN PLACE--SR @ 71. BEGAN IV ABT THERAPY THIS AM RELATED TO UTI WITH NO SIDE EFFECTS NOTED--AFEBRILE. SAFETY PRECAUTIONS IN PLACE RELATED TO POOR SAFETY AWARENESS. WILL CONT TO MONITOR FOR ANY FURTHER CHANGES.
--- NOTE | 2020-04-26 | NUR ---
PATIENT RESTING SOUNDLY IN BED WITH EYES CLOSED AT THIS TIME. NO APPARENT DISTRESS NOTED--NO S/S OF RESP DISTRESS NOTED. TELEMETRY IN PLACE--SR W/PACs @ 65. WILL CONT TO MONITOR FOR ANY FURTHER CHANGES.
[2020-04-26 00:04] VITALS: BP 117/61
--- NOTE | 2020-04-26 04:00 | NUR ---
PATIENT RESTED SOUNDLY ALL NIGHT IN BED WITH EYES CLOSED. NO APPARENT DISTRESS NOTED. EMS SITE REMAINS TO LEFT AC--PATENT--FLUSHES WELL--SITE UNREMARKABLE. THIS FRONT DESK MANAGER ATTEMPTED TIMES 2 AND CO-WORKER ATTEMPTED WELL TO CHANGE IV SITE WITHOUT SUCCESS. TELEMETRY IN PLACE--SINUS GUILLE @ 56. B/P STABLE @ 128/84. CONT TO HAVE 1+ EDEMA TO BILATERAL UPPER AND LOWER EXTREMITIES--LEGS ELEVATED ON PILLOWS ALL NOC IN BED. WILL CONT TO MONITOR FOR ANY FURTHER CHANGES.
[2020-04-26 04:16] VITALS: BP 138/57
[2020-04-26 05:44] LABS: HEMATOCRIT 31.2 % (39.0-50.0); HEMOGLOBIN 9.5 g/dl (14.0-18.0); MEAN CELL VOLUME 103.3 fL CALC (80.0-100.0); MEAN CORPUSCULAR HGB 31.5 pG CALC (26.0-32.0); MEAN CORPUSCULAR HGB CONC 30.4 g/dL CAL (32.0-36.0); RED BLOOD COUNT 3.02 mill/uL (4.70-6.10); RED CELL DISTRI WIDTH 16.9 % (11.5-15.5)
[2020-04-26 06:03] LABS: ANION GAP 3 (6-22 (CALC)); BUN 23 mg/dL (8-23); BUN/CREATININE RATIO 25 (12-20 (CALC)); CARBON DIOXIDE 24 mmol/l (22-30); CHLORIDE 114 mmol/l (95-108); CREATININE 0.9 mg/dL (0.7-1.3); GFR > 60 ML/MIN (>=60 (CALC)); GFR FOR AFR.AMER. > 60 ML/MIN (>=60 (CALC)); MAGNESIUM 1.8 mg/dL (1.6-2.3); POTASSIUM 3.8 mmol/l (3.5-5.1); SODIUM 137 mmol/l (137-146)
[2020-04-26 07:20] VITALS: BP 141/61
--- NOTE | 2020-04-26 07:20 | NUR ---
RECIEVED REPORT FROM UNA MOISE . PT RESTING IN SEMI FOWLERS SPOTIION UPON ENETERING ROOM. INTRODUCED SELF TO PT AND DISCUSSED POC. ASSESSMEN TAND VITALS COMPLETED AT THIS TIME. RESPIRATIONS ARE EVEN AND UNLABORED WITH NO SIGNS OF DISTRESS. LUNG SOUNDS ARE CLEAR. HEART RHYTHM IS NORMAL WITH TELE IN PLACE. RADIAL PULSES ARE STRONG WITH NORMAL CAPILLARY REFILL. PEDAL PULSES ARE WEAK WITH 1+ EDEMA IN LOWER EXTREMITIES. #20 IN LAC FLUSHED, SITE APPEARS HEALTHY AND PATENT. PT DENIES ANY PAIN OR DISCOMFORTS AT THIS TIME. ALL SAFETY PRECAUTIONS ARE IN PLACE WITH CALL LIGHT IN REACH. WILL CONTINUE TO MONITOR
--- NOTE | 2020-04-26 08:42 | NUR ---
DR PEREZ AT BEDSIDE DISCUSSING POC
[2020-04-26 10:30] VITALS: BP 114/55
--- NOTE | 2020-04-26 12:15 | NUR ---
PT RESTING IN SEMI FOWLERS POSITION EATING LUNCH. RESPIRATIONS ARE EVEN AND UNLABORED WITH NO SIGNS OF DISTRESS. PT DENIES ANY PAIN OR DISCOMFORTS. ALL SAFETY PRECAUTIONS IN PLACE WITH CALL LIGHT IN REACH. WILL CONTINUE TO MONITOR
--- NOTE | 2020-04-26 13:03 | NUR ---
SPOKE WITH REPRESENATIVE FROM [facility] IN REGARDS TO PT
[2020-04-26 15:22] VITALS: BP 110/60
[2020-04-26] MEDS ORDERED: KEFLEX500 MG PO (15:45)
--- NOTE | 2020-04-26 16:00 | NUR ---
PT RESTING IN SEMI FOWLERS POSITION. RESPIRATIONS ARE EVEN AND UNLABORED WITH NO SIGNS OF DISTRESS. PT DENIES ANY PAIN OR DISCOMFORTS. ALL SAFETY PRECAUTIONS ARE IN PLACE WITH CALL LIGHT IN REACH. WILL CONTINUE TO MONITOR.
--- NOTE | 2020-04-26 18:09 | NUR ---
TRANSPORTATION PRESENT AT THIS TIME. WAITING FOR PT TO FINISH DINNER BEFORE DEPARTING. IV REMOVED WITH CATHATER STILL INTACT. PT TOLERATED WELL. ALL SAEFTY PRECAUTIONS IN PLACE WITH CALL LIGHT IN REACH. WILL COTNTINUE TO MONITOR
--- NOTE | 2020-04-26 18:24 | NUR ---
Discharge instructions given. Patient verbalizes understanding of same. Discharged in stable condition via Wheelchair to [facility] with staff. All belongings sent with pt. PT DISCHARGED TO [facility] VIA STRETCHER ACCOMPAINED BY STAFF IN STABLE CONDITION. PT LEFT WITH ALL BELONGINGS
== END 2020-04-26 18:30 ==
LOC: ED 09:59 → ED-I 11:30 → ED 11:47 → MS2 11:48
PROVIDERS: Nurse Practitioner; ADMIT Internal Medicine; ATTEND Internal Medicine
DX: I95.1 Orthostatic hypotension (principal); R53.1 Weakness; I12.9 Hypertensive chronic kidney disease with stage 1 through stage 4 chronic kidney disease, or unspecified chronic kidney disease; E11.22 Type 2 diabetes mellitus with diabetic chronic kidney disease; N18.3 Chronic kidney disease, stage 3 (moderate); E83.42 Hypomagnesemia; I48.0 Paroxysmal atrial fibrillation; J44.9 Chronic obstructive pulmonary disease, unspecified; K21.9 Gastro-esophageal reflux disease without esophagitis; N40.0 Benign prostatic hyperplasia without lower urinary tract symptoms; N39.0 Urinary tract infection, site not specified; B96.1 Klebsiella pneumoniae [K. pneumoniae] as the cause of diseases classified elsewhere; Z91.81 History of falling; Z79.01 Long term (current) use of anticoagulants; Z86.73 Personal history of transient ischemic attack (TIA), and cerebral infarction without residual deficits; Z87.891 Personal history of nicotine dependence; Z20.828 Contact with and (suspected) exposure to other viral communicable diseases
CPT/HCPCS: G0378; J3475

== ENCOUNTER 2021-02-13 10:00 | Observation (INO) | payer MEDICARE, OTHER ==
[~2021-02-13] VITALS: Ht 175.3 cm; Wt 63.0 kg
[~2021-02-13 10:00] MED LIST changes: +FLORASTOR250 M1 PO; +LEXAPRO10 MG PO; +SPIRIVA IN; +TAMSULOSIN0.4 MG PO; +WELCHOL625 MG PO
--- NOTE | 2021-02-13 10:00 | NUR ---
TO ROOM 14 VIA EMS FOR TRIAGE
--- NOTE | 2021-02-13 10:24 | NUR ---
RESTING QUIETLY, CALL ROJAS IN REACH. uRINAL GIVEN WITH REQUEST FOR SAMPLE.
[2021-02-13 10:28] LABS: HEMATOCRIT 29.8 % (39.0-50.0); HEMOGLOBIN 9.2 g/dl (14.0-18.0); IMMATURE GRANULOCYTES 0.3 % (0.0-5.0); MEAN CELL VOLUME 107.2 fL CALC (80.0-100.0); MEAN CORPUSCULAR HGB 33.1 pG CALC (26.0-32.0); MEAN CORPUSCULAR HGB CONC 30.9 g/dL CAL (32.0-36.0); NEUT# 9.2 thou/uL (1.82-7.42); RED BLOOD COUNT 2.78 mill/uL (4.70-6.10); RED CELL DISTRI WIDTH 14.4 % (11.5-15.5)
[2021-02-13 10:34] LABS: ALBUMIN 2.8 g/dL (3.2-5.0); ALKALINE PHOSPHATASE 140 u/l (38-126); ANION GAP 6 (6-22 (CALC)); BILIRUBIN, TOTAL 0.5 mg/dL (0.0-1.4); BUN 24 mg/dL (8-23); BUN/CREATININE RATIO 25 (12-20 (CALC)); CARBON DIOXIDE 22 mmol/l (22-30); CHLORIDE 112 mmol/l (95-108); GFR > 60 ML/MIN (>=60 (CALC)); GFR FOR AFR.AMER. > 60 ML/MIN (>=60 (CALC)); LIPASE 32 u/l (23-300); POTASSIUM 4.2 mmol/l (3.5-5.1); SGOT/AST 28 u/l (19-48); SODIUM 135 mmol/l (137-146); TOTAL PROTEIN 5.8 g/dL (6.3-8.2)
[2021-02-13 10:45] LABS: MAGNESIUM 1.3 mg/dL (1.6-2.3)
[2021-02-13 10:59] LABS: ACT PARTIAL THROMBO TIME 29.1 SECONDS (20.0-32.5); INTERNATIONAL NORMALIZED RATIO 1.3 RATIO (0.7-1.3); PROTHROMBIN TIME 12.8 SECONDS (9.0-12.5)
[2021-02-13 11:08] LABS: D-DIMER 0.65 mg/L (0.19-0.60)
--- NOTE | 2021-02-13 11:27 | NUR ---
STRAIGHT CATHED FOR 30 CC'S CLEAR URINE. STERILE TECHNIQUE MAINTAINED, PATINT TOLERATED WELL.
[2021-02-13 11:50] LABS: URINE BILIRUBIN - DIPSTICK NEGATIVE (NEGATIVE); URINE BLOOD DIPSTICK SMALL (NEGATIVE); URINE COLOR YELLOW; URINE GLUCOSE - DIPSTICK NEGATIVE (NEGATIVE); URINE KETONE NEGATIVE (NEGATIVE); URINE LEUK ESTERASE TRACE (NEGATIVE); URINE PH 5.5 (4.5-8.0); URINE PROTEIN - DIPSTICK NEGATIVE (NEG-TRACE); URINE UROBILINOGEN - DIPSTICK 0.2 E.U./dL (0.2)
--- NOTE | 2021-02-13 11:50 | NUR ---
RECEIVED REPORT FROM UNA MELENDEZ. PATIENT RESTING, SPOUSE AT BEDSIDE, VSS. NO DISTRESS NOTED.
[2021-02-13 11:51] LABS: URINE BACTERIA RARE hpf; URINE EPITHELIAL CELLS FEW EPI/hpf (0-FEW); URINE NITRITE - DIPSTICK NEGATIVE (Negative); URINE RBC 0-2 RBC/hpf (0-5); URINE WBC 0-2 WBC/hpf (0-5)
--- NOTE | 2021-02-13 11:55 | NUR ---
DR HANCOCK AT BEDSIDE DISCUSSING PLAN.
--- NOTE | 2021-02-13 13:00 | NUR ---
PATIENT RESTING, DENIES NEEDS. CALL LIGHT IN REACH. AWAITING BED ASSIGNMENT.
--- NOTE | 2021-02-13 13:59 | NUR ---
REPORT CALLED TO UNA MENARD. ALL QUESTIONS ANSWERED. BELONGINGS BAG COMPLETED.
--- NOTE | 2021-02-13 14:11 | NUR ---
PATIENT PRESENT TO FLOOR VIA STRETCHER AT THIS TIME. PATIENT WALKED TO BED WITHOUT DIFFICULTY. PATIENT ALERT AND ORIENTED AT THIS TIME X 2. PATIENT DEINES ANY PAIN. PATIENT DID PRESENT TO FLOOR WITH STOOL IN DEPENDS AT THIS TIME BROWN AND SOFT AND LARGE AMOUNT. PATIENT FOUND TO HAVE DRIED STOOL ON LEGS. PATIENT WAS CLEANED UP AT THIS TIME. BUSINESS SYSTEMS ARCHITECT DONE LUNG COOK ARE CLEAR. PATIENT DOES PRESENT WITH MULTIPLE BRUISES AND SCABBED AREAS ON SKIN. PATIENT HAS NOTED R LOWER LEG SCABS AND BRUISING, BUTTOCK PRESENTS WITH LARGE PURPLE BRUISE AND LEFT KNEE HAS DRIED SCABS AND PURPLE BRUISING WELL. PATIENT STATED HE FALLS AT HOME. WHEN ASKED IF PATIENT DRINKS ALCOHOL PATIENT STATED "I HAVE TWO GIN AND TONICS EVERYDAY". PATIENT HAS SMALL AREA ON BACK THAT IS NOT OPEN AND PATIENT STATES THE "NURSES PUT BANDAIDES ON IT FOR HIM AT HOME". SIDERAILS ARE UP CALL LIGHT IS WITHIN REACH BED ALARM ENGAGED. PATIENT IS ALERT AND ORIENTED X 2 AND UNDERSTANDS REASON FOR ADMISSION AND ROOM SAFETY AT THIS TIME. TELE MONITOR IS IN PLACE AND READING SINUS RHYTHM 77. PATIENT WILL CONTINUE TO BE MONITORED.
[2021-02-13 14:46] VITALS: BP 135/56
--- NOTE | 2021-02-13 16:00 | NUR ---
PATIENT RESTING IN BED AT THIS TIME. PATIENT DENIES ANY PAIN. SIDERAILS ARE UP X 2 CALL LIGHT IS WITHIN REACH.
[2021-02-13 19:50] VITALS: BP 108/58
--- NOTE | 2021-02-13 20:00 | NUR ---
RECEIVIED REPORT FROM [facility]. PHYSICAL ASSESMENT COMPLETE. PT CURRENTLY DENIES PAIN OR DISCOMFORT. SCHEDULED MEDICATIONS AND PRN MEDICATION ADMINISTERED, SEE E-MAR. PT DENIES ANY NEEDS AT THIS TIME. PLAN OF CARE REVIEWED, PT DENIES QUESTIONS, VERBALIZES UNDERSTANDING. ITEMS WITHIN REACH, BED LOCKED IN LOW POSITION W/ BEDRAILS UP X2. CALL ROJAS WITHIN REACH, AGREES TO CALL PRN.
[2021-02-14] VITALS: BP 167/90
--- NOTE | 2021-02-14 | NUR ---
PT LAYING IN BED WITH EYES CLOSED, APPEARS TO BE SLEEPING, APPEARS COMFORTABLE AND IN NO DISTRESS. RESPIRATIONS REGULAR AND UNLABORED. ITEMS REMAIN WITHIN REACH, CALL ROJAS REMAINS WITHIN REACH. BED REMAINS LOCKED AND IN LOW POSITION WITH BEDRAILS UP X2. WILL CONTINUE TO MONITOR.
[2021-02-14 04:00] VITALS: BP 126/70
--- NOTE | 2021-02-14 04:07 | NUR ---
PT RESTING IN BED, NO SIGNS OF DISTRESS NOTED, RESP EVEN AND UNLABORED. PT VOICES NO NEEDS OR COMPLAINTS AT THIS TIME. CALL LIGHT IN REACH, CONTINUE TO MONITOR.
[2021-02-14 05:34] LABS: HEMATOCRIT 28.3 % (39.0-50.0); MEAN CELL VOLUME 105.6 fL CALC (80.0-100.0); MEAN CORPUSCULAR HGB 33.6 pG CALC (26.0-32.0); MEAN CORPUSCULAR HGB CONC 31.8 g/dL CAL (32.0-36.0); RED BLOOD COUNT 2.68 mill/uL (4.70-6.10); RED CELL DISTRI WIDTH 14.5 % (11.5-15.5)
[2021-02-14 05:52] LABS: ANION GAP 6 (6-22 (CALC)); BUN 22 mg/dL (8-23); BUN/CREATININE RATIO 25 (12-20 (CALC)); CARBON DIOXIDE 21 mmol/l (22-30); CHLORIDE 113 mmol/l (95-108); CREATININE 0.9 mg/dL (0.7-1.3); GFR > 60 ML/MIN (>=60 (CALC)); GFR FOR AFR.AMER. > 60 ML/MIN (>=60 (CALC)); MAGNESIUM 1.6 mg/dL (1.6-2.3); POTASSIUM 3.9 mmol/l (3.5-5.1); SODIUM 136 mmol/l (137-146)
[2021-02-14 07:36] VITALS: BP 120/54
--- NOTE | 2021-02-14 07:50 | NUR ---
SHIFT CHANGE REPORT, PT AWAKE ALERT AND ORIENTED SITTING UP IN BED, NO C/I DISCOMFOFT, TELE MONITOR IN PLACE, CALL ROJAS IN REACH AND BED LOCKED IN LOWEST POSITION.
[2021-02-14 10:45] VITALS: BP 110/58
--- NOTE | 2021-02-14 11:41 | NUR ---
STAFF (GADIEL) HERE FROM PHYSICAL THERAPY HERE RECEIVING PT AND TRANSPORTING OFF UNIT FOR PROCEDURE.
[2021-02-14 15:12] VITALS: BP 107/59
--- NOTE | 2021-02-14 15:49 | NUR ---
SLEEPING IN SUPINE POSITION AT THIS TIME, NO SIGN DISCOMFORT, CALL ROJAS.
[2021-02-14 19:00] VITALS: BP 112/60
--- NOTE | 2021-02-14 20:56 | NUR ---
PATIENT RESTING IN BED AT THIS TIME WATCHING TV. PATIENT IS AWAKE ALERT AND ORIENTEDX3. PATIENT IS TAKING PO MEDS WITH SIP OF THICKENED LIQUIDS AND TOLERATED WELL. PATIENT PROVIDED WITH ICE CREAM FOR HS SNACK. PATIENT WITH TELE MONITOR IN PLACE-LAST READING WAS SR-92. PATIENT WITH OCC PRODUCTIVE COUGH-STATES THAT HE HAS BEEN SWALLOWING IT AND NOT SURE WHAT IT LOOKS LIKE. LUNGS ARE CLEAR. PATIENT O2 SAT IS 97% ON ROOM AIR. LAST BM WAS 02/14, DENIES ANY DIFFICULTY WITH URINATION. SAFETY PRECAUTIONS REINFORCED. CALL LIGHT IN REACH. WILL CONT TO MONITOR.
[2021-02-15] VITALS: BP 129/64
[2021-02-15 04:00] VITALS: BP 126/78
--- NOTE | 2021-02-15 04:06 | NUR ---
PATIENT RESTING IN BED AT THIS TIME-INCONT OF BOWEL AND BLADDER-SMALL PASTY LIGHT BROW STOOL. PERICARE WITH SOAP AND WATER WAS GIVEN. TURNED AND REPOSITIONED. TELE MONITOR IN PLACE. TELE MONITOR IN PLACE. SALINE LOCK TO LAC INTACT. BED ALARM IN PLACE FOR PATIENT SAFETY. CALL LIGHT IN REACH. WILL CONT TO MONITOR.
[2021-02-15 06:08] LABS: HEMATOCRIT 27.8 % (39.0-50.0); HEMOGLOBIN 8.7 g/dl (14.0-18.0); MEAN CELL VOLUME 107.8 fL CALC (80.0-100.0); MEAN CORPUSCULAR HGB 33.7 pG CALC (26.0-32.0); MEAN CORPUSCULAR HGB CONC 31.3 g/dL CAL (32.0-36.0); RED BLOOD COUNT 2.58 mill/uL (4.70-6.10); RED CELL DISTRI WIDTH 14.6 % (11.5-15.5)
[2021-02-15 06:18] LABS: ANION GAP 6 (6-22 (CALC)); BUN 21 mg/dL (8-23); BUN/CREATININE RATIO 21 (12-20 (CALC)); CARBON DIOXIDE 23 mmol/l (22-30); CHLORIDE 114 mmol/l (95-108); GFR > 60 ML/MIN (>=60 (CALC)); GFR FOR AFR.AMER. > 60 ML/MIN (>=60 (CALC)); POTASSIUM 4.2 mmol/l (3.5-5.1); SODIUM 138 mmol/l (137-146)
[2021-02-15 07:24] VITALS: BP 123/62
--- NOTE | 2021-02-15 08:06 | NUR ---
SHIFT CHANGE REPORT, PT SLEEPING BUT AWAKENED TO VERBAL STIMULI, ORIENTED X 2, TELE MONITOR IN PLACE, NO C/O DISCOMFORT AT THIS TIME, CALL ROJAS IN REACH AND BED LOCKED IN LOWEST POSITION WITH ALARM ACTIVATED.
--- NOTE | 2021-02-15 08:17 | NUR ---
PRELIM BLOOD CX RESULTS SHOW GRAM POSITIVE COCCI IN 1 OF 4 VIALS. REPORTED TO VENKATESH. WILL F/U WITH FINAL.
[2021-02-15] MEDS ORDERED: ZITHROMAX250 MG PO (10:05)
[2021-02-15] MEDS ORDERED: PREDNISONE10 MG PO (10:12)
[2021-02-15 10:44] VITALS: BP 125/65
--- NOTE | 2021-02-15 11:49 | NUR ---
RELAXING IN BED, INQUIRES ABOUT WHETHER OR NOT HE WILL BE DISCHARGED TODAY, INFORMATION FURNISHED, PT STATES UNDERSTANDING.
--- NOTE | 2021-02-15 15:01 | NUR ---
Discharge instructions given. Patient verbalizes understanding of same. Discharged in stable condition via Wheelchair to Home with spouse. All belongings sent with pt.
--- NOTE | 2021-02-15 15:58 | NUR ---
Patient was seen and treated at bedside. Patient identity was verified via full name and . Patient reported that he was getting ready to go home. Patient performed active ROM, gentle strengthening exercises and transfer from bed-chair. Performed sit to stand with +1 min assist using rolling walker. Patient tolerated all exercises but noted to have instability and weakness. Patient needed intermittent rest periods specially with transfer training activities. Patient refused to practice walking stating that he wants to reserve his energy to car transfers and walking back into house. Reviewed home safety, slow position changes and fall prevention precyuations. Patient was left sitting comfortably on bedisde chair, with call button withiin reach.
--- NOTE | 2021-02-16 11:31 | NUR ---
FINAL BLOOD CX SHOWS S HOMINIS IN 1, REPORTED TO VENKATESH. NO NEW ORDERS RECD
== END 2021-02-15 13:42 | disposition home health service (06) ==
LOC: ED 10:00 → ED-I 11:55 → ED 12:22 → MS2 12:23
PROVIDERS: Nurse Practitioner; ADMIT Internal Medicine; ATTEND Internal Medicine
DX: J44.1 Chronic obstructive pulmonary disease with (acute) exacerbation (principal); E83.42 Hypomagnesemia; R53.1 Weakness; I12.9 Hypertensive chronic kidney disease with stage 1 through stage 4 chronic kidney disease, or unspecified chronic kidney disease; E11.22 Type 2 diabetes mellitus with diabetic chronic kidney disease; N18.30 Chronic kidney disease, stage 3 unspecified; D64.9 Anemia, unspecified; I48.0 Paroxysmal atrial fibrillation; I69.391 Dysphagia following cerebral infarction; R13.10 Dysphagia, unspecified; K21.9 Gastro-esophageal reflux disease without esophagitis; N40.0 Benign prostatic hyperplasia without lower urinary tract symptoms; F32.9 Major depressive disorder, single episode, unspecified; Z87.891 Personal history of nicotine dependence; Z20.822 Contact with and (suspected) exposure to COVID-19
CPT/HCPCS: G0378; J3475

== ENCOUNTER 2021-02-23 17:21 | Emergency (ER) | payer MEDICARE, OTHER ==
[~2021-02-23] VITALS: Ht 175.3 cm; Wt 72.0 kg
[~2021-02-23 17:21] MED LIST changes: +PREDNISONE10 MG PO; +ZITHROMAX250 MG PO
[2021-02-23 19:28] LABS: HEMATOCRIT 32.8 % (39.0-50.0); HEMOGLOBIN 10.4 g/dl (14.0-18.0); IMMATURE GRANULOCYTES 0.5 % (0.0-5.0); MEAN CELL VOLUME 106.8 fL CALC (80.0-100.0); MEAN CORPUSCULAR HGB 33.9 pG CALC (26.0-32.0); MEAN CORPUSCULAR HGB CONC 31.7 g/dL CAL (32.0-36.0); NEUT# 6.14 thou/uL (1.82-7.42); RED BLOOD COUNT 3.07 mill/uL (4.70-6.10); RED CELL DISTRI WIDTH 14.4 % (11.5-15.5)
[2021-02-23 19:32] LABS: URINE BILIRUBIN - DIPSTICK NEGATIVE (NEGATIVE); URINE BLOOD DIPSTICK NEGATIVE (NEGATIVE); URINE COLOR YELLOW; URINE GLUCOSE - DIPSTICK NEGATIVE (NEGATIVE); URINE KETONE NEGATIVE (NEGATIVE); URINE LEUK ESTERASE NEGATIVE (NEGATIVE); URINE NITRITE - DIPSTICK NEGATIVE (Negative); URINE PH 5.5 (4.5-8.0); URINE PROTEIN - DIPSTICK NEGATIVE (NEG-TRACE); URINE SPECIFIC GRAVITY 1.015; URINE UROBILINOGEN - DIPSTICK 0.2 E.U./dL (0.2)
[2021-02-23 20:13] LABS: ALBUMIN 2.9 g/dL (3.2-5.0); ALKALINE PHOSPHATASE 87 u/l (38-126); ANION GAP 11 (6-22 (CALC)); BUN 20 mg/dL (8-23); BUN/CREATININE RATIO 21 (12-20 (CALC)); CARBON DIOXIDE 22 mmol/l (22-30); CHLORIDE 108 mmol/l (95-108); GFR > 60 ML/MIN (>=60 (CALC)); GFR FOR AFR.AMER. > 60 ML/MIN (>=60 (CALC)); POTASSIUM 4.4 mmol/l (3.5-5.1); SGOT/AST 23 u/l (19-48); SODIUM 136 mmol/l (137-146); TOTAL PROTEIN 5.3 g/dL (6.3-8.2)
[2021-02-23 20:14] LABS: BILIRUBIN, TOTAL 0.1 mg/dL (0.0-1.4)
[2021-02-23 21:10] VITALS: BP 162/74
== END 2021-02-23 21:10 | disposition home or self-care (01) ==
LOC: ED 17:21
PROVIDERS: Family Medicine
DX: R42 Dizziness and giddiness (principal); S50.311A Abrasion of right elbow, initial encounter; S40.812A Abrasion of left upper arm, initial encounter; S60.512A Abrasion of left hand, initial encounter; I10 Essential (primary) hypertension; J44.9 Chronic obstructive pulmonary disease, unspecified; E11.9 Type 2 diabetes mellitus without complications; K21.9 Gastro-esophageal reflux disease without esophagitis; N40.0 Benign prostatic hyperplasia without lower urinary tract symptoms; W19.XXXA Unspecified fall, initial encounter; Y92.009 Unspecified place in unspecified non-institutional (private) residence as the place of occurrence of the external cause; Z86.73 Personal history of transient ischemic attack (TIA), and cerebral infarction without residual deficits

== ENCOUNTER 2021-02-25 11:57 | Inpatient (IN) | payer MEDICARE, OTHER ==
[~2021-02-25] VITALS: Ht 175.3 cm; Wt 66.0 kg
--- NOTE | 2021-02-25 12:00 | NUR ---
pATIENT TO ROOM VIA EMS AND PHYSICIAN NOTIFIED OF PATIENT STATUS
[2021-02-25 12:43] LABS: HEMATOCRIT 31.8 % (39.0-50.0); HEMOGLOBIN 10.2 g/dl (14.0-18.0); IMMATURE GRANULOCYTES 0.3 % (0.0-5.0); MEAN CELL VOLUME 108.9 fL CALC (80.0-100.0); MEAN CORPUSCULAR HGB 34.9 pG CALC (26.0-32.0); MEAN CORPUSCULAR HGB CONC 32.1 g/dL CAL (32.0-36.0); NEUT# 20.34 thou/uL (1.82-7.42); RED BLOOD COUNT 2.92 mill/uL (4.70-6.10); RED CELL DISTRI WIDTH 14.4 % (11.5-15.5)
--- NOTE | 2021-02-25 13:15 | NUR ---
PT RESTING, NO DISTRESS. STABLE ON MONITOR. CALL LIGHT WITHIN REACH.
[2021-02-25 13:24] LABS: ALBUMIN 2.6 g/dL (3.2-5.0); ALKALINE PHOSPHATASE 90 u/l (38-126); ANION GAP 8 (6-22 (CALC)); BUN 19 mg/dL (8-23); BUN/CREATININE RATIO 20 (12-20 (CALC)); CARBON DIOXIDE 23 mmol/l (22-30); CHLORIDE 107 mmol/l (95-108); GFR > 60 ML/MIN (>=60 (CALC)); GFR FOR AFR.AMER. > 60 ML/MIN (>=60 (CALC)); POTASSIUM 4.2 mmol/l (3.5-5.1); SGOT/AST 23 u/l (19-48); SODIUM 134 mmol/l (137-146); TOTAL PROTEIN 4.9 g/dL (6.3-8.2)
[2021-02-25 13:25] LABS: BILIRUBIN, TOTAL 0.5 mg/dL (0.0-1.4)
[2021-02-25 13:35] LABS: MYOGLOBIN 42 ng/mL (0 - 121)
--- NOTE | 2021-02-25 14:26 | NUR ---
IV MEDS INFUSING WITHOUT DIFFICULTY. STABLE ON MONITOR.
--- NOTE | 2021-02-25 15:44 | NUR ---
ATTEMPTED TO CALL REPORT, NURSE TO CALL BACK.
--- NOTE | 2021-02-25 15:55 | NUR ---
REPORT RECEIVED FROM CHIP,RN
--- NOTE | 2021-02-25 15:56 | NUR ---
REPORT GIVEN TO DAVID ON [facility].
[2021-02-25 16:24] VITALS: BP 130/66
--- NOTE | 2021-02-25 16:24 | NUR ---
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;PT DENIES ANY CURRENT PAIN OR DISCOMFORTS,PAIN SCALE AND REPORTING EDUCATED;ASSESSMENT COMPLETED;RESPIRATIONS EVEN AND UNLABORED ON RA,NON-PRODUCTIVE COUGH;ABDOMEN SOFT ON PALPATION AND ACTIVE IN ALL 4 QUADRANTS,LAST BM 02/24/21;WEAK PEDAL PULSES;X3 SKIN TEARS TO BLE,PHOTOGRAPHS OBTAINED AND DRESSINGS APPLIED AT THIS TIME;EMS #20G TO RW INFUSING NS @ 50ML/HR PER ORDER,SITE APPEARS HEALTHY AND ABX STARTED PER ORDER;TELE MONITORING IN PLACE;FALL AND ALLERGY BAND APPLIED LEFT ARM;PT PLACED ON DROPLET PRECAUTIONS DUE TO FLU A POSITIVE;PT DENIES ANY ADDITIONAL NEEDS AT THIS TIME AND IS ENCOURAGED TO CALL FOR ASSISTANCE IF NEEDED;FALL PRECAUTIONS IN PLACE WITH BED IN THE LOWEST POSITION AND CALL LIGHT IN REACH;WILL CONTINUE TO MONITOR
[2021-02-25 17:54] LABS: URINE BILIRUBIN - DIPSTICK NEGATIVE (NEGATIVE); URINE BLOOD DIPSTICK NEGATIVE (NEGATIVE); URINE COLOR YELLOW; URINE GLUCOSE - DIPSTICK NEGATIVE (NEGATIVE); URINE KETONE NEGATIVE (NEGATIVE); URINE PH 5.5 (4.5-8.0); URINE PROTEIN - DIPSTICK NEGATIVE (NEG-TRACE); URINE SPECIFIC GRAVITY 1.025; URINE UROBILINOGEN - DIPSTICK 0.2 E.U./dL (0.2)
[2021-02-25 17:55] LABS: URINE LEUK ESTERASE SMALL (NEGATIVE); URINE NITRITE - DIPSTICK NEGATIVE (Negative)
--- NOTE | 2021-02-25 17:59 | NUR ---
PT RESTING IN SEMI FOWLERS POSITION;RESPIRATIONS EVEN AND UNLABORED ON RA;PT DENIES ANY CURRENT PAIN OR NEEDS;IV SITE PATENT INFUSING ABX WITH EASE;TELE MONITORING IN PLACE;PT ENCOURAGED TO CALL FOR ASSISTANCE IF NEEDED;CALL LIGHT IN REACH;WILL CONTINUE TO MONITOR
[2021-02-25 20:00] VITALS: BP 116/57
--- NOTE | 2021-02-25 20:00 | NUR ---
PT RESTING IN BED IN A HIGH FOWLERS POSITION. LUNGS COARSE THROUGHOUT, PT HAS A LOOSE COUGH. BREATHING IS EVEN AND UNLABORED. NO COMPLAINTS VOICED. DRESSINGS TO BLUE CDI, REINFORCED ALL DRESSINGS DUE TO DRESSINGS GETTING LOOSE. NO S/S OF DISTRESS AT THIS TIME. SAFETY PRECAUTIONS IN PLACE, BED IN LOWEST POSITION, CALL LIGHT WITHIN REACH. WILL CONTINUE TO MONITOR.
[2021-02-25 23:43] VITALS: BP 108/58
--- NOTE | 2021-02-26 00:10 | NUR ---
PT RESTING COMFORTABLY IN BED WITH EYES CLOSED. BREATHING EVEN AND UNLABORED. IV ABT GIVEN PER ORDER, PT TOLERATED WELL. SAFETY PRECAUTIONS REMAIN IN PLACE, BED IN LOWEST POSITION, CALL LIGHT WITHIN REACH
[2021-02-26 04:00] VITALS: BP 130/60
--- NOTE | 2021-02-26 04:43 | NUR ---
PT CONTINUES TO REST QUIETLY WITH HIS EYES CLOSED, LUNG SOUNDS REMAIN COARSE TO AUSCULTATION. BREATHING EVEN AND UNLABORED, NO S/S OF DISTRESS NOTED. SAFETY PRECAUTIONS REMAIN IN PLACE, BED IN LOWEST POSITION, CALL LIGHT WITHIN REACH. WILL MONITOR
[2021-02-26 05:08] LABS: HEMATOCRIT 29.8 % (39.0-50.0); HEMOGLOBIN 9.3 g/dl (14.0-18.0); MEAN CELL VOLUME 109.2 fL CALC (80.0-100.0); MEAN CORPUSCULAR HGB 34.1 pG CALC (26.0-32.0); MEAN CORPUSCULAR HGB CONC 31.2 g/dL CAL (32.0-36.0); RED BLOOD COUNT 2.73 mill/uL (4.70-6.10); RED CELL DISTRI WIDTH 14.2 % (11.5-15.5)
[2021-02-26 05:28] LABS: ANION GAP 7 (6-22 (CALC)); BUN 19 mg/dL (8-23); BUN/CREATININE RATIO 20 (12-20 (CALC)); CARBON DIOXIDE 24 mmol/l (22-30); CHLORIDE 108 mmol/l (95-108); CREATININE 0.9 mg/dL (0.7-1.3); GFR > 60 ML/MIN (>=60 (CALC)); GFR FOR AFR.AMER. > 60 ML/MIN (>=60 (CALC)); POTASSIUM 3.7 mmol/l (3.5-5.1); SODIUM 135 mmol/l (137-146)
--- NOTE | 2021-02-26 06:00 | NUR ---
REPORT RECEIVED FROM UNA MCBRIDE
--- NOTE | 2021-02-26 06:40 | NUR ---
PT RESTING IN SEMI FOWLERS POSITION,A&O X3;VS OBTAINED AND ASSESSMENT COMPLETED;PT DENIES ANY CURRENT PAIN OR DISCOMFORTS,PAIN SCALE AND REPORTING EDUCATED;RESPIRATIONS EVEN AND UNLABORED ON RA,COARSE LUNG SOUNDS NOTED WITH NON-PRODUCTIVE COUGH;ABDOMEN SOFT ON PALPATION AND ACTIVE IN ALL 4 QUADRANTS;WEAK PEDAL PULSES;DRESSINGS TO BUE CDI;TELE MONITORING IN PLACE;EMS #20G TO RW INFUSING NS @ 50ML/HR,SITE APPEARS HEALTHY;PT REMAINS UNDER DROPLET PRECAUTIONS DUE TO FLU A POSITIVE RESULTS;PT DENIES ANY ADDITIONAL NEEDS AND IS ENCOURAGED TO CALL FOR ASSISTANCE IF NEEDED;FALL PRECAUTIONS IN PLACE WITH BED IN THE LOWEST POSITION AND CALL LIGHT IN REACH;WILL CONTINUE TO MONITOR
[2021-02-26 06:42] VITALS: BP 153/64
[2021-02-26 10:50] VITALS: BP 113/38
--- NOTE | 2021-02-26 11:10 | NUR ---
AT BEDSIDE DISCUSSING POC.
--- NOTE | 2021-02-26 11:50 | NUR ---
PT RESTING IN SEMI FOWLERS POSITION EATING LUNCH;RESPIRATIONS EVEN AND UNLABORED ON RA;PT DENIES ANY CURRENT PAIN OR DISCOMFORTS;TELE MONITORING IN PLACE;IV SITE PATENT INFUSING NS PER ORDER AND ABX STARTED AT THIS TIME;PT ENCOURAGED TO CALL FOR ASSISTANCE IF NEEDED;FALL PRECAUTIONS IN PLACE WITH CALL LIGHT IN REACH;WILL CONTINUE TO MONITOR
[2021-02-26 12:52] VITALS: BP 142/52
--- NOTE | 2021-02-26 12:52 | NUR ---
ER MONITORING REPORTS 9 BEAT RUN OF V-TACH.PT ASYMPTOMATIC. BP 142/42 HR 93. D.MANA ANRP NOTIFIED AND NO NEW ORDERS RECEIVED;WILL CONTINUE TO MONITOR
--- NOTE | 2021-02-26 14:42 | NUR ---
S: LINDA,DAVID is a 85 M who presents with PNEUMONIA. He has a history of PNEUMONIA. All medications in patient's chart were reviewed. O: VS: TEMP 96.6 W 67kg, SCR=1.0 CRCL=53 A: Blood culture <is pending Urine culture <is pending P: Patient is on ZYSYN 3.375 G Q6H. Vancomycin ordered for pharmacy to dose. Start Vancomycin 750MG q12H Vancomycin trough is drawn before the 4th dose on 02/27/21 @0730. 1ST DOSE WAS GIVEN IN ER Vancomycin goal trough is between <15-20 mcg/ml>. Pharmacy will follow and or advise on antibiotics use as needed. BREANNA ARMENDARIZ PHARMD
[2021-02-26 15:00] VITALS: BP 114/56
--- NOTE | 2021-02-26 15:25 | NUR ---
PT RESTING IN SEMI FOWLERS POSITION WATCHING TV;RESPIRATIONS EVEN AND UNLABORED ON RA;PT DENIES ANY CURRENT PAIN OR DISCOMFORTS;TELE MONITORING IN PLACE;IV SITE TO RW INFUSING NS WITH EASE PER ORDER;DRESSINGS TO BUE CDI;PT DENIES ANY ADDITIONAL NEEDS AND IS ENCOURAGED TO CALL FOR ASSISTANCE IF NEEDED;FALL PRECAUTIONS REMAIN IN PLACE WITH BED IN THE LOWEST POSITION AND CALL LIGHT IN REACH;WILL CONTINUE TO MONITOR
--- NOTE | 2021-02-26 19:00 | NUR ---
REPORT RECEIVED FROM Michael CARTER LPN, CARE OF PT ASSUMED AT THIS TIME.
[2021-02-26 20:00] VITALS: BP 124/52
--- NOTE | 2021-02-26 20:20 | NUR ---
PHYSICAL ASSESMENT COMPLETED, SEE SHIFT ASSESSMENT. RESPIRATIONS REGULAR AND UNLABORED. NON-PRODUCTIVE COUGH. SPO2 100% ON ROOM AIR. BOWEL AND BLADDER INCONTINENT. SCROTUM SLIGHTLY REDDENED, OTHER MANNING SKIN GROSSLY INTACT TO PERINEAL AREA. SCATTERED BRUISING TO BUE. SKIN TEARS TO BUE WITH NON-ADHERENT DRESSING IN PLACE, CLEAN, DRY, AND INTACT. R-WRIST #20G IV PATENT AND INFUSING NS @ 50ML/H. TELE #[id number] SR PAC's IN THE 70S. WHEN ASKED PT REQUESTS WARM BLANKET. WARM BLANKET PROVIDED. PT DENIES FURTHER NEEDS AT THIS TIME. PLAN OF CARE REVIEWED, PT VERBALIZES UNDERSTANDING. CALL ROJAS WITHIN REACH, AGREES TO CALL PRN.
[2021-02-27 00:08] VITALS: BP 134/65
--- NOTE | 2021-02-27 00:20 | NUR ---
PT APPEARS TO BE SLEEPING COMFORTABLY. LAYING IN BED WITH EYES CLOSED, GENTLY SNORING, RESPIRATIONS REGULAR AND UNLABORED. NO APPARENT DISTRESS. CALL ROJAS REMAINS WITHIN REACH.
[2021-02-27 04:00] VITALS: BP 145/76
--- NOTE | 2021-02-27 04:25 | NUR ---
Sary CHANEL, ANIMAL STUNNER IN ROOM COLLECTING AM LAB WORK.
[2021-02-27 05:50] LABS: HEMATOCRIT 27.8 % (39.0-50.0); HEMOGLOBIN 8.6 g/dl (14.0-18.0); MEAN CELL VOLUME 109.9 fL CALC (80.0-100.0); MEAN CORPUSCULAR HGB CONC 30.9 g/dL CAL (32.0-36.0); RED BLOOD COUNT 2.53 mill/uL (4.70-6.10); RED CELL DISTRI WIDTH 14.2 % (11.5-15.5)
--- NOTE | 2021-02-27 07:00 | NUR ---
REPORT RECEIVED FROM UNA SHELTON
[2021-02-27 07:22] LABS: ANION GAP 4 (6-22 (CALC)); BUN 13 mg/dL (8-23); BUN/CREATININE RATIO 14 (12-20 (CALC)); CARBON DIOXIDE 24 mmol/l (22-30); CHLORIDE 109 mmol/l (95-108); GFR > 60 ML/MIN (>=60 (CALC)); GFR FOR AFR.AMER. > 60 ML/MIN (>=60 (CALC)); POTASSIUM 3.4 mmol/l (3.5-5.1); SODIUM 133 mmol/l (137-146)
--- NOTE | 2021-02-27 08:10 | NUR ---
PT RESTING IN SEMI FOWLERS POSITION,A&O X3;VS OBTAINED AND ASSESSMENT COMPLETED;PT DENIES ANY CURRENT PAIN OR DISCOMFORTS,PAIN SCALE AND REPORTING EDUCATED;RESPIRATIONS EVEN AND UNLABORED ON RA,COARSE LUNG SOUNDS;NON-PRODUCTIVE COUGH;ABDOMEN SOFT ON PALPATION AND ACTIVE IN ALL 4 QUADRANTS;WEAK PEDAL PULSES;DRESSINGS TO SKIN TEARS ON BUE CDI;EMS #20G TO RW INFUSING NS @ 50,SITE APPEARS HEALTHY;TELE MONITORING IN PLACE;PT REMAINS IN DROPLET PRECAUTIONS DUE TO FLU A POSITIVE;PT DENIES ANY ADDITIONAL NEEDS AND IS ENCOURAGED TO CALL FOR ASSISTANCE IF NEEDED;FALL PRECAUTIONS IN PLACE WITH BED IN THE LOWEST POSITION AND CALL LIGHT IN REACH;WILL CONTINUE TO MONITOR
[2021-02-27 08:12] VITALS: BP 150/58
--- NOTE | 2021-02-27 10:17 | NUR ---
AT BEDSIDE DISCUSSING POC WITH PT.
[2021-02-27 10:20] VITALS: BP 133/55
--- NOTE | 2021-02-27 11:30 | NUR ---
PT RESTING IN RECLINER WATCHING TV;RESPIRATIONS EVEN AND UNLABORED ON RA;PT DENIES ANY CURRENT PAIN OR DISCOMFORTS;TELE MONITORING IN PLACE;IV SITE PATENT INFUSING NS @ 50ML/HR, ABX STARTED AT THIS TIME;PT DENIES ANY ADDITIONAL NEEDS AND IS ENCOURAGED TO CALL FOR ASSISTANCE IF NEEDED;CALL LIGHT IN REACH;WILL CONTINUE TO MONITOR
--- NOTE | 2021-02-27 14:22 | NUR ---
VANCO TROUGH IS 9 INCREASE DOSE TO 1 GRAM q12H NEXT TROUGH WILL BE 03/01/21 @0875
[2021-02-27 15:05] VITALS: BP 125/48
--- NOTE | 2021-02-27 15:20 | NUR ---
PT RESTING IN RECLINER;RESPIRATIONS EVEN AND UNLABORED ON RA;PT DENIES ANY CURRENT PAIN OR DISCOMFORTS;TELE MONITORING IN PLACE;IV SITE TO RW PATENT;ATTEMPTED TO CHANGE EMS SITE BUT UNSUCCESSFUL,WILL HAVE ANOTHER STAFF MEMBER ATTEMPT;DRESSINGS TO BUE CHANGED AND PT TOLERATED WELL;PT DENIES ANY ADDITIONAL NEEDS;ENCOURAGED TO CALL FOR ASSISTANCE IF NEEDED;FALL PRECAUTIONS IN PLACE WITH CALL LIGHT IN REACH;WILL CONTINUE TO MONITOR
--- NOTE | 2021-02-27 19:00 | NUR ---
REPORT FROM SHEYLA PEOPLES. ASSUMED PT CARE.
[2021-02-27 19:04] VITALS: BP 127/63
--- NOTE | 2021-02-27 20:28 | NUR ---
PT NOTED SITTING UP IN BED WATCHING TV. NO APPARENT DISTRESS NOTED. ASSESSMENT COMPLETE. PT ALERT AND ORIENTED X3. RESPIRATIONS EVEN AND UNLABORED. PUBLICATION DIRECTOR IN PLACE. IV SITE APPEARS HEALTHY WITH IVF INFUSING. PT DENIES ANY CURRENT WANTS OR NEEDS. PT DENIES ANY PAIN OR DISCOMFORT. CALL LIGHT WITHIN REACH. WILL CONTINUE TO MONITOR.
[2021-02-28 00:09] VITALS: BP 171/79
--- NOTE | 2021-02-28 00:39 | NUR ---
X1 ATTEMPT AT NEW IV ACCESS WITHOUT SUCCESS. PT TOLERATED WELL BUT WISHED NOT TO TRY AGAIN AT THIS TIME. CURRENT EMS SITE APPEARS HEALTHY, IVF INFUSING WITHOUT DIFFICULTY. WILL PASS ON TO NEXT SHIFT TO TRY.
[2021-02-28 00:53] VITALS: BP 136/65
[2021-02-28 04:00] VITALS: BP 140/72
--- NOTE | 2021-02-28 04:20 | NUR ---
DIRECTOR LIFE SALES IN ROOM TO OBTAIN LABS AT THIS TIME.
[2021-02-28 06:16] LABS: HEMATOCRIT 28.2 % (39.0-50.0); HEMOGLOBIN 8.9 g/dl (14.0-18.0); MEAN CELL VOLUME 106.4 fL CALC (80.0-100.0); MEAN CORPUSCULAR HGB 33.6 pG CALC (26.0-32.0); MEAN CORPUSCULAR HGB CONC 31.6 g/dL CAL (32.0-36.0); RED BLOOD COUNT 2.65 mill/uL (4.70-6.10); RED CELL DISTRI WIDTH 13.8 % (11.5-15.5)
[2021-02-28 06:24] LABS: ANION GAP 6 (6-22 (CALC)); BUN 12 mg/dL (8-23); BUN/CREATININE RATIO 14 (12-20 (CALC)); CARBON DIOXIDE 22 mmol/l (22-30); CHLORIDE 109 mmol/l (95-108); CREATININE 0.9 mg/dL (0.7-1.3); GFR > 60 ML/MIN (>=60 (CALC)); GFR FOR AFR.AMER. > 60 ML/MIN (>=60 (CALC)); MAGNESIUM 1.6 mg/dL (1.6-2.3); POTASSIUM 3.7 mmol/l (3.5-5.1); SODIUM 133 mmol/l (137-146)
--- NOTE | 2021-02-28 07:00 | NUR ---
PT REPORT RECEIVED FROM NIGHT NURSERANJAN
--- NOTE | 2021-02-28 08:00 | NUR ---
PT WAS FOUND RESTING IN SEMI-CERVANTES'S POSITION IN BED;PT IS A&OX3;VS AND ASSESSMENT WERE COMPLETED;PT HAS NO COMPLAINTS OF PAIN AT THIS TIME;HEART SOUNDS ARE REGULAR IN RATE AND RYHTHM;TELE IS IN PLACE;LUNG SOUNDS ARE CLEAR;RESPIRATIONS ARE EVEN AND UNLABORED ON RA;PT IS REPORTING A NON-PRODUCTIVE COUGH;#20G IV IN RW IS RUNNING NS@50ML/HR;IV SITE IS PATENT AND APPEARS FREE OF COMPLICATIONS AT THIS TIME;PT HAS SKIN TEARS X3 IN BUE WITH DRESSINGS THAT ARE CDI;SAFETY PRECAUTIONS IN PLACE;PT IS CURRENTLY ON DROPLET PRECAUTIONS;CALL LIGHT WITHIN REACH;BED IN LOWEST POSITION;PT ENCOURAGED TO CALL WITH ANY NEEDS OR CONCERNS;WILL CONTINUE TO MONITOR.
[2021-02-28 08:45] VITALS: BP 131/64
--- NOTE | 2021-02-28 10:33 | NUR ---
O.T. RECEIVED ORDER, REVIEWED CHART AND ATTEMPTED TO EVALUATE PT. AT 9:15 A.M., HOWEVER, R.N. SETTING UP THE VANCOMYCIN AND TOOLS AND PARTS ATTENDANT BATHING PATIENT. WILL ATTEMPT LATER TODAY.
[2021-02-28 10:54] VITALS: BP 142/69
[2021-02-28] MEDS ORDERED: LEVAQUIN750 M1 PO (11:25)
[2021-02-28] MEDS ORDERED: TAM75CAP PO (11:29)
--- NOTE | 2021-02-28 12:00 | NUR ---
PT WAS FOUND RESTING IN BEDSIDE CHAIR EATING LUNCH;PT IS AWARE HE WILL BE DISCHARGED TODAY;PT IS WAITING ON TO BRING CLOTHES FOR DC;TELE IN PLACE;SAFETY PRECAUTIONS IN PLACE;CALL LIGHT WITHIN REACH;WILL CONTINUE TO MONITOR.
--- NOTE | 2021-02-28 13:51 | NUR ---
Discharge instructions given. Patient verbalizes understanding of same. Discharged in stable condition via Wheelchair to Home with spouse. All belongings sent with pt. DISCHARGE PACKET GIVEN TO PT;DC INSTRUCTIONS EXPLAINED TO PT AND ;PT EXPRESSED UNDERSTANDING AND HAD NO FURTHER QUESTIONS;SIGNATURE WAS OBTAINED;TELE REMOVED;IV REMOVED WITHOUT COMPLICATIONS AND CATHETER INTACT;PT WILL BE TRANSPORTED HOME WITH SPOUSE PT WAS TRANSPORTED TO [facility] VIA IN STABLE CONDITION ACCOMPANIED BY STAFF;ALL PT BELONGINGS WERE SENT WITH PT;PT WILL BE DC HOME WITH [facility];PT TRANSPORTED HOME ACCOMPANIED BY ;
== END 2021-02-28 13:51 | DRG 178 ==
LOC: ED 11:57 → ED-I 13:45 → ED 15:06 → MS2 15:07
PROVIDERS: Emergency Medicine; Nurse Practitioner; ADMIT Internal Medicine; ATTEND Internal Medicine
DX: J69.0 Pneumonitis due to inhalation of food and vomit (principal); N39.0 Urinary tract infection, site not specified; J10.1 Influenza due to other identified influenza virus with other respiratory manifestations; I12.9 Hypertensive chronic kidney disease with stage 1 through stage 4 chronic kidney disease, or unspecified chronic kidney disease; E11.22 Type 2 diabetes mellitus with diabetic chronic kidney disease; N18.30 Chronic kidney disease, stage 3 unspecified; I48.0 Paroxysmal atrial fibrillation; E83.42 Hypomagnesemia; F32.9 Major depressive disorder, single episode, unspecified; K21.9 Gastro-esophageal reflux disease without esophagitis; N40.0 Benign prostatic hyperplasia without lower urinary tract symptoms; D64.9 Anemia, unspecified; I69.991 Dysphagia following unspecified cerebrovascular disease; R13.10 Dysphagia, unspecified; I69.922 Dysarthria following unspecified cerebrovascular disease; B96.5 Pseudomonas (aeruginosa) (mallei) (pseudomallei) as the cause of diseases classified elsewhere; Z87.01 Personal history of pneumonia (recurrent); Z87.891 Personal history of nicotine dependence; Z20.822 Contact with and (suspected) exposure to COVID-19; R42 Dizziness and giddiness; S50.311A Abrasion of right elbow, initial encounter; S40.812A Abrasion of left upper arm, initial encounter; S60.512A Abrasion of left hand, initial encounter; J44.9 Chronic obstructive pulmonary disease, unspecified; E11.9 Type 2 diabetes mellitus without complications; W19.XXXA Unspecified fall, initial encounter; Y92.009 Unspecified place in unspecified non-institutional (private) residence as the place of occurrence of the external cause; Z86.73 Personal history of transient ischemic attack (TIA), and cerebral infarction without residual deficits
CPT/HCPCS: G0378; J3370; J3475

== ENCOUNTER 2021-03-25 10:57 | Emergency (ER) | payer MEDICARE, OTHER ==
[~2021-03-25] VITALS: Ht 175.3 cm; Wt 67.2 kg
[~2021-03-25 10:57] MED LIST changes: +LEVAQUIN750 M1 PO; +TAM75CAP PO
[2021-03-25] MEDS ORDERED: OMNICEF300 MG PO (11:23)
[2021-03-25] MEDS ORDERED: DOXYCYCL HYC100 MG PO (11:24)
[2021-03-25] MEDS ORDERED: EYE DROP (11:25)
[2021-03-25] MEDS ORDERED: METRONIDAZOL500 MG PO (11:25)
[2021-03-25] MEDS ORDERED: FAMCICLOVIR500 MG PO (11:36)
[2021-03-25 11:55] VITALS: BP 135/58
== END 2021-03-25 12:05 | disposition home or self-care (01) ==
LOC: ED 10:57
DX: B02.39 Other herpes zoster eye disease (principal); B02.31 Zoster conjunctivitis; L03.213 Periorbital cellulitis; I10 Essential (primary) hypertension; J44.9 Chronic obstructive pulmonary disease, unspecified; E11.9 Type 2 diabetes mellitus without complications; F32.9 Major depressive disorder, single episode, unspecified; K21.9 Gastro-esophageal reflux disease without esophagitis; Z86.73 Personal history of transient ischemic attack (TIA), and cerebral infarction without residual deficits

== ENCOUNTER 2021-04-12 14:31 | Observation (INO) | payer MEDICARE, OTHER ==
[~2021-04-12] VITALS: Ht 175.3 cm; Wt 63.1 kg
[~2021-04-12 14:31] MED LIST changes: +DOXYCYCL HYC100 MG PO; +EYE DROP; +FAMCICLOVIR500 MG PO; +OMNICEF300 MG PO
[2021-04-12 15:27] LABS: HEMATOCRIT 32.2 % (39.0-50.0); HEMOGLOBIN 10.2 g/dl (14.0-18.0); IMMATURE GRANULOCYTES 0.3 % (0.0-5.0); MEAN CELL VOLUME 104.5 fL CALC (80.0-100.0); MEAN CORPUSCULAR HGB 33.1 pG CALC (26.0-32.0); MEAN CORPUSCULAR HGB CONC 31.7 g/dL CAL (32.0-36.0); NEUT# 16.92 thou/uL (1.82-7.42); RED BLOOD COUNT 3.08 mill/uL (4.70-6.10); RED CELL DISTRI WIDTH 15.1 % (11.5-15.5)
[2021-04-12 15:43] LABS: ALBUMIN 3.1 g/dL (3.2-5.0); ALKALINE PHOSPHATASE 72 u/l (38-126); BUN 27 mg/dL (8-23); BUN/CREATININE RATIO 22 (12-20 (CALC)); CARBON DIOXIDE 20 mmol/l (22-30); CHLORIDE 114 mmol/l (95-108); CREATININE 1.3 mg/dL (0.7-1.3); GFR 53 ML/MIN (>=60 (CALC)); GFR FOR AFR.AMER. > 60 ML/MIN (>=60 (CALC)); LIPASE 45 u/l (23-300); SGOT/AST 21 u/l (19-48); SODIUM 138 mmol/l (137-146)
[2021-04-12 15:47] LABS: ACT PARTIAL THROMBO TIME 30.5 SECONDS (20.0-32.5); INTERNATIONAL NORMALIZED RATIO 1.2 RATIO (0.7-1.3); PROTHROMBIN TIME 12.1 SECONDS (9.0-12.5)
[2021-04-12 16:03] LABS: ANION GAP 9 (6-22 (CALC)); BILIRUBIN, TOTAL 0.2 mg/dL (0.0-1.4); POTASSIUM 4.9 mmol/l (3.5-5.1)
[2021-04-12 16:05] LABS: MAGNESIUM 0.9 mg/dL (1.6-2.3)
[2021-04-12 17:16] LABS: URINE BILIRUBIN - DIPSTICK NEGATIVE (NEGATIVE); URINE BLOOD DIPSTICK LARGE (NEGATIVE); URINE COLOR YELLOW; URINE GLUCOSE - DIPSTICK NEGATIVE (NEGATIVE); URINE KETONE NEGATIVE (NEGATIVE); URINE LEUK ESTERASE NEGATIVE (NEGATIVE); URINE PROTEIN - DIPSTICK TRACE mg/dL (NEG-TRACE); URINE SPECIFIC GRAVITY >=1.030; URINE UROBILINOGEN - DIPSTICK 0.2 E.U./dL (0.2)
[2021-04-12 17:31] LABS: URINE NITRITE - DIPSTICK NEGATIVE (Negative)
[2021-04-12 17:33] LABS: URINE RBC 25-50 RBC/hpf (0-5)
[2021-04-12 21:39] VITALS: BP 120/66
[2021-04-13] VITALS: BP 123/63
[2021-04-13 04:54] VITALS: BP 146/73
[2021-04-13 06:25] LABS: HEMATOCRIT 30.8 % (39.0-50.0); HEMOGLOBIN 9.9 g/dl (14.0-18.0); MEAN CELL VOLUME 105.5 fL CALC (80.0-100.0); MEAN CORPUSCULAR HGB 33.9 pG CALC (26.0-32.0); MEAN CORPUSCULAR HGB CONC 32.1 g/dL CAL (32.0-36.0); RED BLOOD COUNT 2.92 mill/uL (4.70-6.10); RED CELL DISTRI WIDTH 15.4 % (11.5-15.5)
[2021-04-13 06:31] LABS: BUN 26 mg/dL (8-23); BUN/CREATININE RATIO 27 (12-20 (CALC)); CARBON DIOXIDE 19 mmol/l (22-30); CHLORIDE 112 mmol/l (95-108); GFR > 60 ML/MIN (>=60 (CALC)); GFR FOR AFR.AMER. > 60 ML/MIN (>=60 (CALC)); SODIUM 135 mmol/l (137-146)
[2021-04-13 06:46] LABS: ANION GAP 9 (6-22 (CALC)); MAGNESIUM 2.6 mg/dL (1.6-2.3)
[2021-04-13 06:47] LABS: POTASSIUM 5.3 mmol/l (3.5-5.1)
[2021-04-13] MEDS ORDERED: FINASTERIDE5 MG PO (07:37)
[2021-04-13 08:17] VITALS: BP 140/65
[2021-04-13 10:45] VITALS: BP 107/62
[2021-04-13 16:45] VITALS: BP 124/59
[2021-04-13 20:15] VITALS: BP 117/62
[2021-04-14 00:20] VITALS: BP 142/66
[2021-04-14 04:21] VITALS: BP 140/67; BP 150/79
[2021-04-14 07:06] LABS: HEMATOCRIT 33.2 % (39.0-50.0); HEMOGLOBIN 10.4 g/dl (14.0-18.0); MEAN CELL VOLUME 105.7 fL CALC (80.0-100.0); MEAN CORPUSCULAR HGB 33.1 pG CALC (26.0-32.0); MEAN CORPUSCULAR HGB CONC 31.3 g/dL CAL (32.0-36.0); RED BLOOD COUNT 3.14 mill/uL (4.70-6.10); RED CELL DISTRI WIDTH 15.2 % (11.5-15.5)
[2021-04-14 07:12] LABS: ANION GAP 7 (6-22 (CALC)); BUN 21 mg/dL (8-23); BUN/CREATININE RATIO 24 (12-20 (CALC)); CARBON DIOXIDE 21 mmol/l (22-30); CHLORIDE 111 mmol/l (95-108); CREATININE 0.9 mg/dL (0.7-1.3); GFR > 60 ML/MIN (>=60 (CALC)); GFR FOR AFR.AMER. > 60 ML/MIN (>=60 (CALC)); POTASSIUM 4.6 mmol/l (3.5-5.1); SODIUM 134 mmol/l (137-146)
[2021-04-14 07:16] LABS: MAGNESIUM 1.8 mg/dL (1.6-2.3)
[2021-04-14 08:03] VITALS: BP 136/72
[2021-04-14 10:52] VITALS: BP 132/62
[2021-04-14] MEDS ORDERED: OMNICEF300 MG PO (12:46)
[2021-06-28] MEDS ORDERED: SPIRIVA IN (12:51)
[2021-06-28] MEDS ORDERED: TAMSULOSIN HCL0.4 MG PO (12:51)
== END 2021-04-14 15:17 | disposition home health service (06) ==
LOC: ED 14:31 → ED-I 16:50 → ED 17:10 → MS2 17:11
PROVIDERS: Nurse Practitioner; ADMIT Internal Medicine; ATTEND Internal Medicine
DX: R53.1 Weakness (principal); E83.42 Hypomagnesemia; D72.829 Elevated white blood cell count, unspecified; E86.0 Dehydration; I12.9 Hypertensive chronic kidney disease with stage 1 through stage 4 chronic kidney disease, or unspecified chronic kidney disease; E11.22 Type 2 diabetes mellitus with diabetic chronic kidney disease; N18.30 Chronic kidney disease, stage 3 unspecified; J44.9 Chronic obstructive pulmonary disease, unspecified; I48.0 Paroxysmal atrial fibrillation; F32.9 Major depressive disorder, single episode, unspecified; R13.10 Dysphagia, unspecified; K21.9 Gastro-esophageal reflux disease without esophagitis; N40.0 Benign prostatic hyperplasia without lower urinary tract symptoms; Z87.891 Personal history of nicotine dependence; Z87.01 Personal history of pneumonia (recurrent); Z86.73 Personal history of transient ischemic attack (TIA), and cerebral infarction without residual deficits; Z79.01 Long term (current) use of anticoagulants; Z86.19 Personal history of other infectious and parasitic diseases; Z20.822 Contact with and (suspected) exposure to COVID-19
CPT/HCPCS: G0378; J0692; J3475

== ENCOUNTER → 2021-05-06 | Outpatient (REF) | payer MEDICARE, OTHER ==
[2021-05-06 11:48] LABS: HEMATOCRIT 31.3 % (39.0-50.0); HEMOGLOBIN 10.1 g/dl (14.0-18.0); IMMATURE GRANULOCYTES 0.1 % (0.0-5.0); MEAN CELL VOLUME 105.4 fL CALC (80.0-100.0); MEAN CORPUSCULAR HGB CONC 32.3 g/dL CAL (32.0-36.0); NEUT# 3.85 thou/uL (1.82-7.42); RED BLOOD COUNT 2.97 mill/uL (4.70-6.10); RED CELL DISTRI WIDTH 16.4 % (11.5-15.5)
== END | disposition home or self-care (01) ==
LOC: LAB 11:22
PROVIDERS: ATTEND Nurse Practitioner
DX: D72.829 Elevated white blood cell count, unspecified (principal); E83.42 Hypomagnesemia

== ENCOUNTER → 2021-06-30 | Day surgery (SDC) | payer MEDICARE, OTHER ==
[2021-06-30 09:14] VITALS: BP 128/61
== END | disposition home or self-care (01) ==
LOC: ENDO 07:03 → ORM 08:00
PROVIDERS: ATTEND Surgery
PROC: 0DBH8ZX Excision of Cecum, Via Natural or Artificial Opening Endoscopic, Diagnostic (ICD-10-PCS; principal; 2021-06-30)
PROC: 0DJ08ZZ Inspection of Upper Intestinal Tract, Via Natural or Artificial Opening Endoscopic (ICD-10-PCS; 2021-06-30)
DX: D64.9 Anemia, unspecified (principal); R68.81 Early satiety; D12.0 Benign neoplasm of cecum; I10 Essential (primary) hypertension; K21.9 Gastro-esophageal reflux disease without esophagitis; J44.9 Chronic obstructive pulmonary disease, unspecified; Z86.010 Personal history of colon polyps; Z98.0 Intestinal bypass and anastomosis status; Z79.01 Long term (current) use of anticoagulants

== ENCOUNTER 2021-07-16 09:26 | Inpatient (IN) | payer MEDICARE, OTHER ==
[~2021-07-16] VITALS: Ht 175.3 cm; Wt 59.9 kg
--- NOTE | 2021-07-16 09:26 | NUR ---
PATIENT TO ROOM VIA EMS STRETCHER.
[2021-07-16 10:16] LABS: HEMATOCRIT 32.3 % (39.0-50.0); HEMOGLOBIN 10.8 g/dl (14.0-18.0); IMMATURE GRANULOCYTES 0.3 % (0.0-5.0); MEAN CELL VOLUME 101.3 fL CALC (80.0-100.0); MEAN CORPUSCULAR HGB 33.9 pG CALC (26.0-32.0); MEAN CORPUSCULAR HGB CONC 33.4 g/dL CAL (32.0-36.0); NEUT# 16.5 thou/uL (1.82-7.42); RED BLOOD COUNT 3.19 mill/uL (4.70-6.10); RED CELL DISTRI WIDTH 15.5 % (11.5-15.5)
[2021-07-16 10:18] LABS: URINE BILIRUBIN - DIPSTICK NEGATIVE (NEGATIVE); URINE BLOOD DIPSTICK NEGATIVE (NEGATIVE); URINE COLOR YELLOW; URINE GLUCOSE - DIPSTICK NEGATIVE (NEGATIVE); URINE KETONE NEGATIVE (NEGATIVE); URINE LEUK ESTERASE NEGATIVE (NEGATIVE); URINE PH 5.5 (4.5-8.0); URINE PROTEIN - DIPSTICK NEGATIVE (NEG-TRACE); URINE UROBILINOGEN - DIPSTICK 0.2 E.U./dL (0.2)
[2021-07-16 10:28] LABS: ALBUMIN 2.5 g/dL (3.2-5.0); BUN 25 mg/dL (8-23); BUN/CREATININE RATIO 26 (12-20 (CALC)); CHLORIDE 115 mmol/l (95-108); CPK 30 u/l (52-200); GFR > 60 ML/MIN (>=60 (CALC)); GFR FOR AFR.AMER. > 60 ML/MIN (>=60 (CALC)); MAGNESIUM 1.2 mg/dL (1.6-2.3); POTASSIUM 4.2 mmol/l (3.5-5.1); SGOT/AST 23 u/l (19-48); SODIUM 136 mmol/l (137-146); TOTAL PROTEIN 5.5 g/dL (6.3-8.2)
[2021-07-16 10:31] LABS: ALKALINE PHOSPHATASE 161 u/l (38-126); ANION GAP 8 (6-22 (CALC)); BILIRUBIN, TOTAL 0.5 mg/dL (0.0-1.4); CARBON DIOXIDE 17 mmol/l (22-30)
--- NOTE | 2021-07-16 10:38 | NUR ---
Reassessment of patient completed. No distress noted.
[2021-07-16 10:41] LABS: URINE NITRITE - DIPSTICK NEGATIVE (Negative)
[2021-07-16 10:59] LABS: TSH, 3RD GENERATION 1.57 uIU/mL (0.47 - 4.68)
--- NOTE | 2021-07-16 12:03 | NUR ---
PATIENT'S CELL PHONE AND WALLET SENT HOME WITH .
--- NOTE | 2021-07-16 14:30 | NUR ---
Reassessment of patient completed. No distress noted.
--- NOTE | 2021-07-16 15:58 | NUR ---
PT RESTING IN SEMI FOWLERS POSITION, FAMILY MEMBER AT BEDSIDE. RESPIRATIONS ARE EVEN AND UNLABORED. #22G RFA INFUSING WITH IVF PER ORDER, SITE APPEARS HEALTHY AND PATENT. PT DENIES OF ANY PAINS OR DISCOMFORTS AT THIS TIME. ALL SAFETY PRECAUTIONS ARE IN PLACE WITH CALL LIGHT IN REACH. WILL CONTINUE TO MONITOR
--- NOTE | 2021-07-16 16:01 | NUR ---
REPORT CALLED TO MED/SURG NURSE
--- NOTE | 2021-07-16 16:08 | NUR ---
RECIEVED REPORT FROM UNA COLEMAN
--- NOTE | 2021-07-16 16:23 | NUR ---
PATIENT TAKEN TO FLOOR
--- NOTE | 2021-07-16 16:24 | NUR ---
PT ARRIVED TO [facility] ROOM 280 VIA STRETCHER ACCOMPAINED BY ER STAFF. PT PIVOT TO BED WITH ASSISTANCE. PT IS A/O X3. ASSESSMENT AND VITALS COMPLETED. RESPIRATIONS ARE EVEN AND UNLABORED WITH NO DISTRESS NOTED. LUNG SOUNDS ARE CLEAR. WET COUGH NOTED, NONPRODUCTIVE. HEART RHYTHM NORMAL WITH TELE IN PLACE, SR PER ER MONITORING. ([id number]) BOWEL SOUNDS ARE ACTIVE X4 QUADRANTS. PT INCONT OF BOWEL AND BLADDER. RODNEY CARE PROVIDED. #18G LAC INFUSING WITH IVF PER ORDER, SITE REMAINS HEALTHY AND PATENT. SCATTERED BRUSING AND SCABS NOTED TO ALL EXTREMITIES. BUTTOCKS REDDENED. PHOTOS DOCUMENTED IN CHART. PT COMPLAINS OF 3/10 PAIN IN FEET, PT STATES THIS IS NOT NEW. PT DENIES OF ANY ADDITIONAL NEEDS AT THIS TIME. ALL SAFETY PRECAUTIONS ARE IN PLACE WITH CALL LIGHT IN REACH. PT ORIENTED TO ROOM AND CALL SYSTEM. ALL SAFETY PRECAUTIONS ARE IN PLACE WITH CALL LIGHT IN REACH. WILL CONTINUE TO MONITOR.
[2021-07-16 16:53] VITALS: BP 123/59
--- NOTE | 2021-07-16 18:53 | NUR ---
BED WORKER AWARE OF NEEDED ZOSYN. BED WORKER TO BRING TO FLOOR.
[2021-07-16 19:00] VITALS: BP 100/52
--- NOTE | 2021-07-16 20:59 | NUR ---
PHYSICAL ASSESMENT COMPLETE. PT CURRENTLY DENIES PAIN OR DISCOMFORT. SCHEDULED MEDICATIONS AND PRN MEDICATION ADMINISTERED, SEE E-MAR. PT DENIES ANY NEEDS AT THIS TIME. PLAN OF CARE REVIEWED, PT DENIES QUESTIONS, VERBALIZES UNDERSTANDING. ITEMS WITHIN REACH, BED LOCKED IN LOW POSITION W/ BEDRAILS UP X2. CALL ROJAS WITHIN REACH, AGREES TO CALL PRN.
[2021-07-17] VITALS (7 sets, daily range): BP systolic 112–129; BP diastolic 60–71
--- NOTE | 2021-07-17 04:00 | NUR ---
PT RESTING IN BED, NO SIGNS OF DISTRESS NOTED, RESP EVEN AND UNLABORED. PT VOICES NO NEEDS OR COMPLAINTS AT THIS TIME. CALL LIGHT IN REACH, CONTINUE TO MONITOR.
[2021-07-17 04:44] LABS: HEMATOCRIT 30.2 % (39.0-50.0); HEMOGLOBIN 9.9 g/dl (14.0-18.0); MEAN CELL VOLUME 101.7 fL CALC (80.0-100.0); MEAN CORPUSCULAR HGB 33.3 pG CALC (26.0-32.0); MEAN CORPUSCULAR HGB CONC 32.8 g/dL CAL (32.0-36.0); RED BLOOD COUNT 2.97 mill/uL (4.70-6.10); RED CELL DISTRI WIDTH 15.6 % (11.5-15.5)
[2021-07-17 05:08] LABS: ANION GAP 7 (6-22 (CALC)); BUN 23 mg/dL (8-23); BUN/CREATININE RATIO 23 (12-20 (CALC)); CARBON DIOXIDE 18 mmol/l (22-30); CHLORIDE 118 mmol/l (95-108); GFR > 60 ML/MIN (>=60 (CALC)); GFR FOR AFR.AMER. > 60 ML/MIN (>=60 (CALC)); POTASSIUM 3.8 mmol/l (3.5-5.1); SODIUM 138 mmol/l (137-146)
[2021-07-17 05:10] LABS: MAGNESIUM 1.7 mg/dL (1.6-2.3)
--- NOTE | 2021-07-17 08:39 | NUR ---
ASSESSMENT DONE. PATIENT IS ALERT AND ORIENT X2. PATIENT STATED PAIN IN FEET. MEDICATED PATIENT WITH TYLENOL. ELEVATED LEGS IN PILLOW. TELE IN PLACE. LUNGS SOUND COARSE. PATIENT DENIES SOB. PO FLUIDS PROVIDED. PATIENT DENIES ANY OTHER NEEDS AT THIS TIME. CALL LIGHT IN REACH.
[2021-07-17] MEDS ORDERED: METOPROL TAR25 MG PO (11:59)
[2021-07-17] MEDS ORDERED: [UNRECOGNIZED DRUG - OTHER] PO (12:10)
[2021-07-17] MEDS ORDERED: VITAMIN D325 MCG PO (12:14)
[2021-07-17] MEDS ORDERED: B121000 MC1 PO (12:19)
[2021-07-17] MEDS ORDERED: CO Q 10100 MG PO (12:20)
--- NOTE | 2021-07-17 12:20 | NUR ---
PATIENT IS RESTING IN BED WITH NO DISTRESS NOTED. PATIENT DENIES NEEDS. EDUCATED PATIENT HOW TO USE THE INCENTIVE SPIROMETRY AND PATIENT GOES UP TO 1000ML. CALL LIGHT IN REACH.
[2021-07-17] MEDS ORDERED: SLOWMAG PO (12:24)
[2021-07-17] MEDS ORDERED: NYSTAT-RX500 MU EX (12:27)
--- NOTE | 2021-07-17 15:39 | NUR ---
PATIENT IS SLEEPING IN BED WITH NO DISTRESS NOTED. CALL LIGHT IN REACH.
--- NOTE | 2021-07-17 19:50 | NUR ---
RECEIVED REPORT FROM [facility].
--- NOTE | 2021-07-17 20:00 | NUR ---
PATIENT IS AWAKE, ALERT AND ORIENTED X3. ABLE TO MAKE NEEDS KNOWN. C/O B/L FOOT PAIN 02/10. RESPIRATIONS EVEN AND UNLABORED. HR REG. ON TELEMETRY SR WITH OCCASIONAL PVC'S. BS+. PEDAL PULSES WEAK. IVF INFUSING TO #20 LAC @100ML/HR. FALL PRECAUTIONS MAINTAINED. BED IN LOW POSITION. CALL LIGHT WITHIN REACH.
--- NOTE | 2021-07-18 00:40 | NUR ---
PATIENT RESTING QUIETLY SEMI-FOWLWERS POSITION. VAD LAC INFUSING NS@100ML/HR. NO COMPLAINTS. RESPIRATIONS EVEN AND UNLABORED. BED IN LOW POSITION. CALL LIGHT WITHIN REACH.
--- NOTE | 2021-07-18 03:47 | NUR ---
PATIENT RESTING IN SEMI-FOWLERS POSITION. NO CHANGES NOTED.
[2021-07-18 04:05] VITALS: BP 132/71
[2021-07-18 05:08] LABS: HEMATOCRIT 27.6 % (39.0-50.0); HEMOGLOBIN 9.2 g/dl (14.0-18.0); MEAN CELL VOLUME 100.4 fL CALC (80.0-100.0); MEAN CORPUSCULAR HGB 33.5 pG CALC (26.0-32.0); MEAN CORPUSCULAR HGB CONC 33.3 g/dL CAL (32.0-36.0); RED BLOOD COUNT 2.75 mill/uL (4.70-6.10); RED CELL DISTRI WIDTH 15.6 % (11.5-15.5)
[2021-07-18 05:41] LABS: ALKALINE PHOSPHATASE 112 u/l (38-126); ANION GAP 5 (6-22 (CALC)); BILIRUBIN, TOTAL 0.3 mg/dL (0.0-1.4); BUN 16 mg/dL (8-23); BUN/CREATININE RATIO 17 (12-20 (CALC)); CARBON DIOXIDE 17 mmol/l (22-30); CHLORIDE 121 mmol/l (95-108); CREATININE 0.9 mg/dL (0.7-1.3); GFR > 60 ML/MIN (>=60 (CALC)); GFR FOR AFR.AMER. > 60 ML/MIN (>=60 (CALC)); POTASSIUM 3.6 mmol/l (3.5-5.1); SGOT/AST 23 u/l (19-48); SODIUM 140 mmol/l (137-146); TOTAL PROTEIN 4.4 g/dL (6.3-8.2)
[2021-07-18 05:50] LABS: ALBUMIN 1.9 g/dL (3.2-5.0)
--- NOTE | 2021-07-18 05:57 | NUR ---
RADIOLOGIST AT BEDSIDE FOR PORTABLE CHEST X-RAY.
--- NOTE | 2021-07-18 06:36 | NUR ---
IVF DECREASED TO 20ML/HR PER NEW ORDER. PATIENT RESTING WITH EYES CLOSED. RESPIRATIONS EVEN AND UNLABORED. BED IN LOW POSITION. CALL LIGHT WITHIN REACH.
[2021-07-18 07:15] VITALS: BP 135/60
--- NOTE | 2021-07-18 07:15 | NUR ---
PATIENT RESTING IN BED AWAKE AND ALERT AND ORIENTED X3. PATIENT DEINES ANY PAIN AT THIS TIME. INDUSTRIAL X RAY OPERATOR DONE SEE INTERVENTIONS. PATIENTS LUNG COOK ARE DIMINISHED IN LOWER BASES AND PATIENT HAS NO COUGH PRESENT AT THIS TIME. PATIENT IS ON TELE MONITOR AND IS BEING MONITORED BY ED CURRENTLY. PATIENT DOES PRESENT WITH OLD SCABS TO BILATERAL LEGS AND WERE PRESENT ON ADMISSION THERE IS NO EVIDENCE OF BILATERAL LEG SWELLING AT THIS TIME. PATIENT SIDERAILS ARE UP X 2 AND CALL LIGHT IS WITHIN REACH PATIENT WILL CONTINUE TO BE MONITORED AT THIS TIME.
--- NOTE | 2021-07-18 10:21 | NUR ---
PHYSICAL THERAPY AND OCCUPATIONAL THERAPY IN TO SEE PATIENT AT THIS TIME. PATIENT WALKING WIHT WALKER WITH THERAPY AND EXERCISE PREFORMED AND ASSISTED TO CHAIR. BANDAGE TO LEFT FOREARM CHANGED AT THIS TIME. OPEN SORE FROM PRIOR TO ADMISSION. AREA CLEANSED WITH NORMAL SALINE AND TELFA AND CLING APPLIED. PATIENT UP IN CHAIR AT THIS TIME. CALL LIGHT IS WITHIN REACH.
[2021-07-18 10:35] VITALS: BP 104/53
--- NOTE | 2021-07-18 12:00 | NUR ---
PATIENT SITTING UP IN CHAIR AT THIS TIME WATCHING TV. PATIENT STATES HE IS HAVING NO PAIN AT THIS TIME. CALL LIGHT AND PERSONAL ITEMS WISPENCERIN REACH. TELE MONITOR IN PLACE AND BEING MONITORED BY ED.
--- NOTE | 2021-07-18 12:16 | NUR ---
MEDICAL RECORDS REQUEST SENT TO [facility] AT THIS TIME TRANSMISSION OKAY.
[2021-07-18 15:15] VITALS: BP 119/55
--- NOTE | 2021-07-18 15:27 | NUR ---
LAB CALLED LACTIC ACID RESULT TO THIS NURSE AND RESULTS OF 2.0 GIVEN TO VENKATESH WINSLOW AT THIS TIME. NO NEW ORDERS GIVEN .
--- NOTE | 2021-07-18 15:46 | NUR ---
PATIENT RESTING IN BED AT THIS TIME. PATIENT DENIES ANY PAIN AT THIS TIME. PATIENT SIDERAILS ARE UP X 2 CALL LIGHT IS WITHIN REACH. PATIENT HAS TELE MONITOR IN PLACE AND IS BEING MONITORED BY ED. LEFT ARM DRESSING CHANGED AND TELFA PAD AND TEGADERM APPLIDED AT THIS TIME. WILL CONTINUE TO MONITOR.
[2021-07-18 18:50] VITALS: BP 110/51
--- NOTE | 2021-07-18 19:30 | NUR ---
PATIENT ALERT AND ORIENTED. ABLE TO MAKE NEEDS KNOWN. ASSESSMENT COMPLETE. NO SHORTNESS OF BREATH NOTED. C/O HEADACHE. TYLENOL GIVEN PER PATIENT REQUEST. IV SITE TO RT AC APPEARS HEALTHY WITH NS RUNNING PER ORDER. BED IN LOWEST POSITION. CALL LIGHT AND BELONGINGS REMAIN IN REACH.
[2021-07-19] VITALS: BP 136/61
--- NOTE | 2021-07-19 00:43 | NUR ---
RESTING IN BED QUIETLY. NO COMPLAINTS VOICED AT THIS TIME. ZOSYN RUNNING AT THIS TIME PER MD ORDER. CALL LIGHT AND BELONGINGS REMAIN IN REACH.
[2021-07-19 04:00] VITALS: BP 130/65
--- NOTE | 2021-07-19 04:38 | NUR ---
PATIENT RESTING IN BED QUIETLY. NO COMPLAINTS VOICED AT THIS TIME. BED REMAINS IN LOWEST POSITION. BELONGINGS AND CALL LIGHT REMAIN IN REACH.
[2021-07-19 07:15] VITALS: BP 136/65
--- NOTE | 2021-07-19 07:15 | NUR ---
PATIENT RESTING IN BED AT THIS TIME. PATIENT DENIES ANY PAIN OR NEEDS CURRENTLY SIDERAILS ARE UP X 2 CALL ESTEVAN GRANADOS. PATIENT HAS NOTED LEFT UPPER ARM DRESSING DUE TO SKIN TEAR FROM PRIOR TO ADDMISSION. DRESSING HAS DRY BLOOD NOTED AT THIS TIME. LUNG COOK ARE DIMINISHED IN LOWER BASES. PATIENT HAS TELE MONITOR IN PLACE AND IS BEING MONITORED BY ED. WILL CONTINUE TO MONITOR. NO EVIDENCE OF EDEMA AT THIS TIME.
[2021-07-19 11:04] VITALS: BP 105/60
--- NOTE | 2021-07-19 11:38 | NUR ---
PATIENT SITTING UP IN CHAIR AT THIS TIME EATING LUNCH PATIETN DENIES ANY NEEDS AT THIS TIME. SIDERAILS ARE UP CALL LIGHT WITHIN REACH.
--- NOTE | 2021-07-19 13:40 | NUR ---
S: Patient states that he is moving a little better, able to walk between bed to reclining chair with moderate assistance from therapist and LICENSED MASSAGE THERAPIST. O: Patient did the following activity: Seated hip flexion for 2 x 10 reps. Seated hip abduction for 2 x 10 reps. Seated knee extension for 2 x 10 reps. Seated ankle pumps for 2 x 10 reps. Patient did sit to stand activity (3 reps) with mod A x 2 from reclining chair. Patient did gait activity with mod A x 2 covering 4 feet to and from the sink with patient R knee buckling, exhibits guarding with each step width and length. A: Patient slowly exhibiting improving dynamic balance capability exhibited by carrying out gait activity with mod A x 2 negotiating level surfaces, but ended up fatigued following 1 round of ambulation (almost jumped back on to the recliner to avoid buckling of both knees). P: Patient will need to continue working with strengthening exercises, dynamic balance activity, and gait re-training to help improve patient functional weight bearing capability as patient plans to go back to near [facility]. Patient Am Pac score presently at 9 points, discharge recommendation would be extended care placement and I agree with this (but patient doesn't want rehab placement and would rather go home and receive home health intervention).
[2021-07-19 15:19] VITALS: BP 128/66
--- NOTE | 2021-07-19 16:11 | NUR ---
PATIENT RESTING IN BED AT THIS TIME WATCHING TV. PATIENT TAWANNA ANY PAIN AT THIS TIME. PATIENT SIDERAILS ARE UP AND CALL LIGHT REMAINS WIHTIN REACH AT THIS TIME.
[2021-07-19 19:00] VITALS: BP 129/65
--- NOTE | 2021-07-19 19:21 | NUR ---
PATIENT RESTING IN BED WITH HOB ELEVATED. AWAKE ALERT AND ORIENTEDX3. PATIENT WITH NO COMPLAINTS AT THIS TIME. TELE MONITOR IN PLACE. IVF NS PATENT AND INFUSING AT KVO RATE VIA RAC SITE. SITE IS HEALTHY AT THIS TIME. SAFETY PRECAUTIONS REINFORCED. CALL LIGHT IN REACH. WILL CONT TO MONITOR.
--- NOTE | 2021-07-19 19:58 | NUR ---
PATIENT INCONT OF MODERATE AMT OF URINE. PATIENT PROVIDED WITH RODNEY CARE WITH SOAP AND WATER. BARRIER CREAM APPLIED TO RED BUTTOCKS AND LOTION APPLIED TO BACK. LINENS AND GOWN WERE CHANGED. TURNED AND REPOSITIONED. PROVIDED WITH HS SNACK OF CEREAL BAR AND THICKENED APPLE JUICE. CALL LIGHT IN REACH. WILL CONT TO MONITOR.
--- NOTE | 2021-07-19 21:00 | NUR ---
PATIENT RESTING IN BED-INCONT OF MODERATE AMT OF URINE. BUTTOCKS IS RED. PROVIDED RODNEY CARE WITH SOAP AND WATER. LINENES WERE CHANGED. TURNED AND REPOSITIONED ON LEFT SIDE. ACCU-CHECK WAS 111. NO COVERAGE. TELE MONITOR IN PLACE. IVF PATENT AND INFUSING VIA RIGHT AC SITE AT KVO RATE. CALL LIGHT IN REACH. WILL CONT TO MONITOR.
[2021-07-20] VITALS: BP 140/64
--- NOTE | 2021-07-20 01:36 | NUR ---
PATIENT CALLED AND STATES THAT HE IS WET AND HAD SMALL LOOSE BROWN BM. PATIENT WAS PROVIDED WITH RODNEY-CARE WITH SOAP AND WATER AND LINENS WERE CHANGED. BARRIER CREAM APPLIED. POSITIONED ONHIS SIDE. TELE MONITOR REMAINS IN PLACE WITH LAST READING SR-[id number]. IVF NS PATENT AND INFUSING AT KVO RATE VIA RAC SITE. CALL LIGHT IN REACH. WILL CONT TO MONITOR.
[2021-07-20 04:00] VITALS: BP 136/61
--- NOTE | 2021-07-20 05:50 | NUR ---
PATIENT INCONT OF LARGE LOOSE BROWN STOOL-PERICARE PROVIDED WITH SOAP AND WATER. BARRIER CREAM APPLIED TO AFFECT AREAS. DRESSING TO LEFT FOREARM OUT. NEW DRESSING APPLIED TO SKIN TEAR-TELFA COVERED WITH TEGADERM AND SECURED WITH COBAN. ZOSYN INFUSING ORDERED VIA RIGHT AC SITE. SAFETY PRECAUTIONS REINFORCED. CALL LIGHT IN REACH. WILL CONT TO MONITOR.
--- NOTE | 2021-07-20 07:00 | NUR ---
RECIEVED REPORT FROM UNA DOHERTY
[2021-07-20 07:40] VITALS: BP 133/71
--- NOTE | 2021-07-20 07:40 | NUR ---
PT RESTING IN SEMI FOWLERS POSITION. PT IS A/O X3. ASSESSMENT AND VITALS COMPLETED. BP 133/71, HR 88, O2 98% ON ROOM AIR. RESPIRATIONS ARE EVEN AND UNLABORED WITH NO DISTRESS NOTED. LUNG SOUNDS ARE CLEAR. BOWEL SOUNDS ARE ACTIVE. HEART RHYTHM NORMAL WITH TELE IN PLACE. #20G RAC INFUSING IWTH IVF PER ORDER, SITE REMAINS HEALTHY AND PATENT. SKIN INTACT. REDNESS NOTED TO BUTTOCKS. SCABBS NOTED TO BLE. 1+ EDEMA NOTED TO BLE. MUTIPLE SKIN TEARS TO UPPER EXTREMITIES, DRY DRESSINGS REMAINS CDI. PT DENIES OF ANY PAINS OR DISCOMFORTS AT THIS TIME. ALL SAFETY PRECAUTIONS ARE IN PLACE WITH CALL LIGHT IN REACH. WILL CONTINUE TO MONITOR
[2021-07-20] MEDS ORDERED: AMOX/K CLAV875 M1 PO (08:17)
--- NOTE | 2021-07-20 08:31 | NUR ---
MORNING MEDICATION ADMINISTERED. PT TOLERATED WELL.
--- NOTE | 2021-07-20 09:36 | NUR ---
DR PEREZ AND SACHA,ANRP AT BEDSIDE
--- NOTE | 2021-07-20 09:44 | NUR ---
PT AT BEDSIDE
--- NOTE | 2021-07-20 09:52 | NUR ---
PHYSICAL THERAPY AT BEDSIDE. NURSE INFORMED OF SKIN TEAR TO RIGHT CALF WHEN STANDING UP. UNABLE TO OBTAINED PHOTO DUE TO MEMORY CARD BEING LOCKED. DRY DRESSING APPLIED WITH KRELEX WRAP. PT TOLERATED WELL. DRESSING REMAINS CDI.
--- NOTE | 2021-07-20 10:10 | NUR ---
PT EDUCATED ON DC INSTRUCTIONS AND NEW MEDICATION. PT VERBLAIZED UNDERSTANDING. 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 ALL SAFETY PRECAUTIONS ARE IN PLACE WITH CALL LIGHT IN REACH. WILL CONTINUE TO MONITOR
--- NOTE | 2021-07-20 10:18 | NUR ---
Discharge instructions given. Patient verbalizes understanding of same. Discharged in stable condition via [facility] with [facility]. All belongings sent with pt. PT DC TO R IN STABLE CONDITION WITH ALL DC INSTRUCTIONS AND PERSONAL BELONINGS. #22G RAC REMOVED WITH CATH STILL INTACT. TELE MONITORING REMOVED. ER INFORMED.
--- NOTE | 2021-07-20 10:25 | NUR ---
REPORT CALLED TO RN AT [facility].
--- NOTE | 2021-07-20 16:30 | NUR ---
S: Patient reported feeling a little better on this date. O: Patient performed 1 x 10 each seated hip flexion 1 x 10 each seated knee extension Bed mobility Min A x 1 Supine to sit Min A x 1 Sit to stand Mod A x 1 Ambulation x 6 feet Mod A x 2 handheld assist A: Patient is improving with seated exercises and control with movements. Patient still requires increased assistance with transfers and especially ambulation. Patient was fatigued with this short distance gait and displayed multiple gait deviations with ambulation. Patient was discharged following our session to an extended care facility. P: Patient will continue to need further interventions at extended care facility. Patient's Am Pac score on this date was 10 which is a discharge recommendation for an extended care facility. I agree with this recommendation at this time due to the patient's current level of function with ADLs.
== END 2021-07-20 10:18 | DRG 178 ==
LOC: ED 09:26 → ED-I 14:50 → ED 15:31 → MS2 15:32
PROVIDERS: Emergency Medicine; Nurse Practitioner Family; ADMIT Hospitalist; ATTEND Internal Medicine
DX: J69.0 Pneumonitis due to inhalation of food and vomit (principal); K56.7 Ileus, unspecified; Z68.1 Body mass index [BMI] 19.9 or less, adult; I12.9 Hypertensive chronic kidney disease with stage 1 through stage 4 chronic kidney disease, or unspecified chronic kidney disease; E11.22 Type 2 diabetes mellitus with diabetic chronic kidney disease; N18.30 Chronic kidney disease, stage 3 unspecified; I48.0 Paroxysmal atrial fibrillation; I95.9 Hypotension, unspecified; E83.42 Hypomagnesemia; R62.7 Adult failure to thrive; J44.9 Chronic obstructive pulmonary disease, unspecified; N40.0 Benign prostatic hyperplasia without lower urinary tract symptoms; K21.9 Gastro-esophageal reflux disease without esophagitis; F32.A Depression, unspecified; Z86.73 Personal history of transient ischemic attack (TIA), and cerebral infarction without residual deficits; Z87.01 Personal history of pneumonia (recurrent); Z87.891 Personal history of nicotine dependence; Z20.822 Contact with and (suspected) exposure to COVID-19
CPT/HCPCS: G0378; J3475; Q9967

== ENCOUNTER 2021-08-23 09:33 | Observation (INO) | payer MEDICARE, OTHER ==
[~2021-08-23] VITALS: Ht 175.3 cm; Wt 58.0 kg
[~2021-08-23 09:33] MED LIST changes: +B121000 MC1 PO; +NYSTAT-RX500 MU EX; +SLOWMAG PO; +VITAMIN D325 MCG PO; +[UNRECOGNIZED DRUG - OTHER] PO
--- NOTE | 2021-08-23 09:50 | NUR ---
PATIENT TRANSFERRED TO [facility] IN ROOM VIA EMS. PATIENT ALERT AND IN NO ACUTE DISTRESS. CONNECTED TO MONITOR. VSS.
[2021-08-23 10:42] LABS: HEMATOCRIT 31.8 % (39.0-50.0); HEMOGLOBIN 9.9 g/dl (14.0-18.0); IMMATURE GRANULOCYTES 0.2 % (0.0-5.0); MEAN CELL VOLUME 103.6 fL CALC (80.0-100.0); MEAN CORPUSCULAR HGB 32.2 pG CALC (26.0-32.0); MEAN CORPUSCULAR HGB CONC 31.1 g/dL CAL (32.0-36.0); NEUT# 8.32 thou/uL (1.82-7.42); RED BLOOD COUNT 3.07 mill/uL (4.70-6.10); RED CELL DISTRI WIDTH 15.7 % (11.5-15.5)
--- NOTE | 2021-08-23 10:50 | NUR ---
Reassessment of patient completed. No distress noted.
[2021-08-23 11:07] LABS: ALKALINE PHOSPHATASE 164 u/l (38-126); ANION GAP 9 (6-22 (CALC)); BILIRUBIN, TOTAL 0.3 mg/dL (0.0-1.4); BUN 25 mg/dL (8-23); BUN/CREATININE RATIO 18 (12-20 (CALC)); CARBON DIOXIDE 20 mmol/l (22-30); CHLORIDE 114 mmol/l (95-108); CREATININE 1.4 mg/dL (0.7-1.3); GFR 48 ML/MIN (>=60 (CALC)); GFR FOR AFR.AMER. 58 ML/MIN (>=60 (CALC)); POTASSIUM 4.6 mmol/l (3.5-5.1); SGOT/AST 38 u/l (19-48); SODIUM 139 mmol/l (137-146)
[2021-08-23 11:14] LABS: ALBUMIN 2.5 g/dL (3.2-5.0); TOTAL PROTEIN 5.9 g/dL (6.3-8.2)
--- NOTE | 2021-08-23 11:50 | NUR ---
Reassessment of patient completed. No distress noted.
--- NOTE | 2021-08-23 12:24 | NUR ---
Reassessment of patient completed. No distress noted. SKIN TEARS ON RIGHT FOREARM AND ELBOW CLEANSED WITH WOUND CLEANSER. STERISTRIPS APPLIED. NONADHERENT PADS PLACED AND ARM WRAPPED IN BULKEE GAUZE FOR PROTECTION. PATIENT IN NO ACUTE DISTRESS. MD ON PHONE WITH TO DISCUSS DISCHARGE PLAN.
--- NOTE | 2021-08-23 13:35 | NUR ---
Reassessment of patient completed. No distress noted. IV PLACED. COVID SWAB COMPLETED.
--- NOTE | 2021-08-23 14:35 | NUR ---
Reassessment of patient completed. No distress noted.
--- NOTE | 2021-08-23 15:48 | NUR ---
Reassessment of patient completed. No distress noted.
--- NOTE | 2021-08-23 16:13 | NUR ---
Reassessment of patient completed. No distress noted.
--- NOTE | 2021-08-23 16:20 | NUR ---
REPORT REC FROM [facility]
--- NOTE | 2021-08-23 16:22 | NUR ---
CALLED REPORT TO OPHELIA ON MED SURGE. VERBALIZED UNDERSTANDING.
--- NOTE | 2021-08-23 16:34 | NUR ---
ESCORTED PATIENT TO [facility] VIA STRETCHER AND TRANSFERRED TO BED WITH ASSISTANCE. PATIENT ALERT AND ORIENTED IN NO ACUTE DISTRESS.
[2021-08-23 16:45] VITALS: BP 152/67
--- NOTE | 2021-08-23 16:45 | NUR ---
PT ARRIVED VIA STRETCHER ACCOMPANIED BY [facility]. PT TRANSFERRED TO THE BED WITH ASSISTANCE OF Jaimie GOODRICH, THIS JURY CONSULTANT AND Danial ROALND CNA. PT TOLERATED TRANSFER WELL. A&O X3. NO DISTRESS NOTED. PT C/O OF SLIGHT PAIN TO BLE; STATES IT HAS BEEN ONGOING FOR 1 YEAR. REPORTS HAVING A FALL TODAY AFTER TRYING TO AMBULATE WITH WALKER FROM THE BATHROOM TO THE LIVING ROOM. SKIN TEARS NOTED TO BILATERAL ARMS; WORSE ON RT DRESSING REAPPLIED, DRESSING APPLIED TO LFA; AND BARRIER CREAM/AQUACEL DRESSING APPLIED TO COCCYX; RODNEY AREA ALSO REDENED. HOME BRIEF REMOVED; AREA CLEANSED AND APPLIED BARRIER CREAM WELL. SEE CHART FOR PHOTOS. MULTIPLE BRUISES NOTED THROUGHOUT ARMS/LEGS. CLEAR BREATH SOUNDS UPON AUSCULTATION. ACTIVE BOWEL SOUNDS X4 QUADRANTS; ACCUCHECK 75 PT REPORTS NOT EATING TODAY; OJ GIVEN. PER AND PATIENT HE IS ON THICKENED LIQUIDS AND "GROUNDED FOODS". #22G TO LFA IN PLACE; HEALTHY AND PATENT. CUSTOMER SERVICE REPRESENTATIVE TELLER IN PLACE. LEGS ELEVATED ON PILLOW; PT ALSO TURNED TO RT SIDE. ASSESSMENT COMPLETED. DISCUSSED POC. CALL LIGHT WITHIN REACH.
[2021-08-23 19:00] VITALS: BP 114/60
--- NOTE | 2021-08-23 20:00 | NUR ---
PATIENT SITTING UP IN THE BED-AWAKE ALERT AND ORIENTEDX3. PATIENT WITH IVF NS PATENT AND INFUSING VIA LAC AT 50CC/HR. SITE IS HEALTHY AT THIS TIME. PATIENT WITH DRESSING TO BOTH ARMS-SKIN TEARS TO BOTH ARMS FROM FALLS AT HOME. BREIF IN PLACE FOR URINE INCONT. TELE MONITOR IN PLACE WITH LAST READING SR-76 WITH PAC'S. TAKING THICKENED PO FLUIDS WITH OCC COUGH AFTER-HX OF ASPIRATION IN THE PAST. SAFETY PRECAUTIONS REINFORCED. CALL LIGHT IN REACH. WILL CONT TO MONITOR.
--- NOTE | 2021-08-23 23:51 | NUR ---
PATIENT SITTING UP IN BED-AWAKE ALERT AND ORIENTEDX3. PATIENT WITH IVF PATENT AND INFUSING VIA LAC SITE AT 50CC/HR. SITE IS HEALTHY AT THIS TIME. PATIENT WITH DRESSING TO BOTH ARMS-PATIENT WITH SKIN TEARS TO BOTH ARMS. PATIENT HERE WITH WEAKNESS AND FALLS. BREIF IN PLACE FOR URINE INCONT. TELE MONITOR IN PLACE WITH LAST READING SR-76 WITH PAC'S. PATIENT TAKING THICKENED PO FLUIDS WITH OCC COUGH AFTER. HX OF ASPIRATION IN THE PAST. SAFETY PRECAUTIONS REINFORCED. CALL LIGHT IN REACH. WILL CONT TO MONITOR.
[2021-08-24] VITALS: BP 137/59
--- NOTE | 2021-08-24 | NUR ---
PATIENT RESTING IN BED WITH THE HOB ELEVATED. EYES ARE CLOSED AND RESP ARE EVEN AND UNLABRED. IVF PATENT AND INFUSING LAC ORDERED AT 50CC/HR. CALL LIGHT IN REACH. WILL CONT TO MONITOR.
[2021-08-24 04:00] VITALS: BP 131/59
--- NOTE | 2021-08-24 05:08 | NUR ---
PATIENT RESTING IN BED AT THIS TIME WITH EYES CLOSED. IVF PATENT AND INFUSING VIA LAC SITE AT 50CC/HR. TELE MONITOR IN PLACE-LAST READING WAS SR-77 WITH PAC'S. CALL LIGHT IN REACH. WILL CONT TO MONITOR.
[2021-08-24 05:28] LABS: HEMOGLOBIN 9.2 g/dl (14.0-18.0); MEAN CELL VOLUME 102.1 fL CALC (80.0-100.0); MEAN CORPUSCULAR HGB 32.4 pG CALC (26.0-32.0); MEAN CORPUSCULAR HGB CONC 31.7 g/dL CAL (32.0-36.0); RED BLOOD COUNT 2.84 mill/uL (4.70-6.10); RED CELL DISTRI WIDTH 15.6 % (11.5-15.5)
[2021-08-24 05:47] LABS: ANION GAP 10 (6-22 (CALC)); BUN 22 mg/dL (8-23); BUN/CREATININE RATIO 18 (12-20 (CALC)); CARBON DIOXIDE 19 mmol/l (22-30); CHLORIDE 114 mmol/l (95-108); CREATININE 1.2 mg/dL (0.7-1.3); GFR 58 ML/MIN (>=60 (CALC)); GFR FOR AFR.AMER. > 60 ML/MIN (>=60 (CALC)); POTASSIUM 4.6 mmol/l (3.5-5.1); SODIUM 138 mmol/l (137-146)
--- NOTE | 2021-08-24 06:17 | NUR ---
CRITICAL VALUE OF 0[address] BOBBY MADE AWARE OF CRITICAL AT 0607 BY WRITTER. ORDERS FOR 4MG MAGNESIUM IV X 1 DOSE OBTAINED. ORDERS FAXED TO PHARMACY.
--- NOTE | 2021-08-24 06:27 | NUR ---
RECIEVED CALL FROM KIRBY IN LAB WITH CRITICAL MAG-1.0. DR. BOBBY NOTIFIED AND NEW ORDER FOR MAG 4GM OBTAINED-NSG SUP NOTIFIED AND AWAITING MED TO BE PROVIDED. WILL CONT TO MONITOR.
[2021-08-24 08:41] VITALS: BP 143/64
--- NOTE | 2021-08-24 08:41 | NUR ---
PT SITTING IN BED EATING BREAKFAST. A&O X3. NO DISTRESS NOTED. PT DENIES ANY PAIN AT THIS TIME. CLEAR BREATH SOUNDS UPON AUSCULTATION. ACTIVE BOWEL SOUNDS X4 QUADRANTS. PT INCONTINENT OF BOWEL AND BLADDER. REDDENED AREAS TO COCCYX AND PERINEAL. DRESSING CDI TO COCCYX. SKIN TEARS TO BILATERAL ARMS UNCHANGED COMPARED TO YESTERDAY;DRESSINGS CDI. IV HEALTHY AND PATENT WITH IVF INFUSING PER MAR ORDER. BILATERAL LEGS ELEVATED ON PILLOW. ASSESSMENT COMPLETED. DISCUSSED POC. CALL LIGHT WITHIN REACH.
--- NOTE | 2021-08-24 09:40 | NUR ---
occupational therapy at bedside
[2021-08-24] MEDS ORDERED: SPIRIVA RE2.5 MCG/AC IN (10:06)
[2021-08-24 10:29] VITALS: BP 125/58
--- NOTE | 2021-08-24 11:15 | NUR ---
PT IN BED WITH AT BEDSIDE; PT CLEANED HE WAS INCONTINENT OF BOWEL AND URINE. BARRIER CREAM APPLIED AND AQUACEL DRESSING APPLIED TO COCCYX. PT TOLERATED WELL. ACCUCHECK 108. NO OTHER NEEDS AT THIS TIME. CALL LIGHT WITHIN REACH.
[2021-08-24 15:00] VITALS: BP 139/65
--- NOTE | 2021-08-24 15:55 | NUR ---
PT SLEEPING IN BED. NO DISTRESS NOTED. CALL LIGHT WITHIN REACH.
--- NOTE | 2021-08-24 19:15 | NUR ---
PT IS SLEEPING AT THIS TIME. RESP EVEN AND NON-LABORED, NO S/O DISTRESS NOTED.
[2021-08-24 20:00] VITALS: BP 134/65
--- NOTE | 2021-08-24 21:51 | NUR ---
IVF REPLENISHED AT THIS TIME. PT AWOKE TO MY TOUCH. DENIES ANY NEEDS AT THIS TIME. LOCX3. CALL LIGHT AT SIDE. LIGHTS TURNED DOWN AND TV IS ON.
[2021-08-25] VITALS: BP 143/74
--- NOTE | 2021-08-25 00:46 | NUR ---
PT APPEARS TO BE SLEEPING, NO S/O DISTRESS NOTED. RESP EVEN AND NON-LABORED.
[2021-08-25 04:00] VITALS: BP 156/70
[2021-08-25 05:14] LABS: HEMATOCRIT 28.5 % (39.0-50.0); HEMOGLOBIN 9.3 g/dl (14.0-18.0); MEAN CELL VOLUME 98.6 fL CALC (80.0-100.0); MEAN CORPUSCULAR HGB 32.2 pG CALC (26.0-32.0); MEAN CORPUSCULAR HGB CONC 32.6 g/dL CAL (32.0-36.0); RED BLOOD COUNT 2.89 mill/uL (4.70-6.10); RED CELL DISTRI WIDTH 15.6 % (11.5-15.5)
[2021-08-25 05:27] LABS: ANION GAP 5 (6-22 (CALC)); BUN 19 mg/dL (8-23); BUN/CREATININE RATIO 19 (12-20 (CALC)); CARBON DIOXIDE 22 mmol/l (22-30); CHLORIDE 115 mmol/l (95-108); GFR > 60 ML/MIN (>=60 (CALC)); GFR FOR AFR.AMER. > 60 ML/MIN (>=60 (CALC)); POTASSIUM 4.3 mmol/l (3.5-5.1); SODIUM 137 mmol/l (137-146)
[2021-08-25 05:35] LABS: MAGNESIUM 1.8 mg/dL (1.6-2.3)
[2021-08-25 08:30] VITALS: BP 105/59
--- NOTE | 2021-08-25 08:31 | NUR ---
PATIENT IS RESTING IN BED. ASSESSMENT DONE. PATIENT IS ALERT AND ORIENT X3. PATIENT STATED PAIN IN LEFT LEG. MEDICATED PATIENT WITH TYLENOL. TELE IN PLACE. LEFT ELBOW STERI STRIPS IN PLACE. PATIENT DENIES ANY OTHER NEEDS. SAFETY PRECAUTIONS REINFORCED AND CALL LIGHT IN REACH.
--- NOTE | 2021-08-25 10:47 | NUR ---
S- pt reported weakness. No other complaints reported. 0- Pt resting in bed. AROM/AAROM to BLEs, 2x 10 reps including heel slides, hip abd/add, hip IR/ER, SAQ and ankle DF/PF. Gentle heelcord stretching done by therapist x 3 reps. Rolling side to side with use of bed rail and min assistance. Supine to sit with max assist. Transferring to chair with RW and min assist. Gait 2 x 8' with min assist and max guarding, pt posture flexed knees flexed. BP 107/56, decreasd to 96/48 with mild c/o light headness after walking, pt denied in sitting. 02 sats 96-98% HR 95 to 113. 0- Pt with weakness and fall risk. [facility] 10 ECF. Time spent with pt 50 min P- will follow.
[2021-08-25 11:01] VITALS: BP 92/57
--- NOTE | 2021-08-25 11:55 | NUR ---
PATIENT IS SETUP FOR LUNCH. PATIENT DENIES PAIN AT THIS TIME. PATIENT DENIES NEEDS AT THIS TIME. CALL LIGHT IN REACH.
--- NOTE | 2021-08-25 13:01 | NUR ---
PICTURES TAKEN OF PATIENT BUTTOCKS DUE TO REDNESS NOTED AND AQUACEL APPLIED. ALSO, PICTURE TAKEN OF PATIENT BACK. CALL LIGHT IN REACH.
--- NOTE | 2021-08-25 14:41 | NUR ---
Rogelio was seen in supine position, laying in bed, appearing AOx3, but groggy. He refused tx today, explaining he would be transported soon to ECF. Am-pac score remains unchanged.
[2021-08-25 14:55] VITALS: BP 134/63
--- NOTE | 2021-08-25 16:35 | NUR ---
Discharge instructions given. Patient verbalizes understanding of same. Discharged in stable condition via Medical Transport to *Other with staff. All belongings sent with pt.
== END 2021-08-25 16:35 ==
LOC: ED 09:33 → ED-I 13:10 → ED 13:43 → MS2 13:44
PROVIDERS: Family Medicine; Nurse Practitioner; ADMIT Hospitalist; ATTEND Hospitalist
DX: R53.1 Weakness (principal); I12.9 Hypertensive chronic kidney disease with stage 1 through stage 4 chronic kidney disease, or unspecified chronic kidney disease; E11.22 Type 2 diabetes mellitus with diabetic chronic kidney disease; N18.30 Chronic kidney disease, stage 3 unspecified; J44.9 Chronic obstructive pulmonary disease, unspecified; N40.0 Benign prostatic hyperplasia without lower urinary tract symptoms; I48.91 Unspecified atrial fibrillation; F32.A Depression, unspecified; K21.9 Gastro-esophageal reflux disease without esophagitis; S51.811A Laceration without foreign body of right forearm, initial encounter; S51.011A Laceration without foreign body of right elbow, initial encounter; M89.58 Osteolysis, other site; W18.11XA Fall from or off toilet without subsequent striking against object, initial encounter; Y92.002 Bathroom of unspecified non-institutional (private) residence as the place of occurrence of the external cause; Z87.01 Personal history of pneumonia (recurrent); Z86.73 Personal history of transient ischemic attack (TIA), and cerebral infarction without residual deficits; Z87.891 Personal history of nicotine dependence; Z79.01 Long term (current) use of anticoagulants; Z20.822 Contact with and (suspected) exposure to COVID-19
CPT/HCPCS: G0378; J3475

== ENCOUNTER 2021-09-16 10:50 | Observation (INO) | payer MEDICARE, OTHER ==
[~2021-09-16] VITALS: Ht 175.3 cm; Wt 53.0 kg
--- NOTE | 2021-09-16 11:10 | NUR ---
PT ESCORTED TO [facility] FOR EVAL OF LOW BP AND WEAKNESS
--- NOTE | 2021-09-16 11:48 | NUR ---
Rt BEDSIDE FOR ABG AT THIS TIME.
[2021-09-16 12:18] LABS: HEMATOCRIT 29.7 % (39.0-50.0); HEMOGLOBIN 8.9 g/dl (14.0-18.0); IMMATURE GRANULOCYTES 0.3 % (0.0-5.0); MEAN CORPUSCULAR HGB 32.4 pG CALC (26.0-32.0); NEUT# 6.34 thou/uL (1.82-7.42); RED BLOOD COUNT 2.75 mill/uL (4.70-6.10); RED CELL DISTRI WIDTH 16.2 % (11.5-15.5)
[2021-09-16 12:26] LABS: ALKALINE PHOSPHATASE 101 u/l (38-126); AMYLASE 51 u/l (30-110); ANION GAP 9 (6-22 (CALC)); BILIRUBIN, TOTAL 0.3 mg/dL (0.0-1.4); BUN 34 mg/dL (8-23); BUN/CREATININE RATIO 27 (12-20 (CALC)); CARBON DIOXIDE 22 mmol/l (22-30); CHLORIDE 115 mmol/l (95-108); CREATININE 1.3 mg/dL (0.7-1.3); GFR 53 ML/MIN (>=60 (CALC)); GFR FOR AFR.AMER. > 60 ML/MIN (>=60 (CALC)); LIPASE 54 u/l (23-300); MAGNESIUM 1.6 mg/dL (1.6-2.3); POTASSIUM 4.6 mmol/l (3.5-5.1); SGOT/AST 17 u/l (19-48); SODIUM 140 mmol/l (137-146); TOTAL PROTEIN 6.5 g/dL (6.3-8.2)
[2021-09-16 12:31] LABS: INTERNATIONAL NORMALIZED RATIO 1.1 RATIO (0.7-1.3); PROTHROMBIN TIME 11.1 SECONDS (9.0-12.5)
--- NOTE | 2021-09-16 14:10 | NUR ---
DR HANCOCK PRESENT BEDSIDE TO DISCUSSE TEST RESULTS AND ANSWER QUESTIONS
[2021-09-16] MEDS ORDERED: INCRUSE EL62.5 MCG/I PO (14:58)
--- NOTE | 2021-09-16 15:05 | NUR ---
ATTEMPT TO CALL REPORT TO MEDICAL/SURGICAL FLOOR
--- NOTE | 2021-09-16 15:38 | NUR ---
RECIEVED REPORT FROM UNA COLEMAN
--- NOTE | 2021-09-16 16:12 | NUR ---
PT ARRIVED TO [facility] ROOM 273 VIA PORTABLE ACCOMPAINED BY ER STAFF. PT IS A/OX3. ASSESSMENT COMPLETED. RESPIRATIONS ARE EVEN AND UNLABORED ON ROOM AIR. LUNG SOUNDS DIMINISHED IN LOWER LOBES. HEART RYTHM NORMAL WITH TELE IN PLACE, SR PER ER MONITORING. #22G LW FLUSHED, SITE APPEARS HEALTHY AND PATENT. SKIN TEARS NOTED TO BFA, DRESSING REMAINS CDI. SCATTERED BRUISING NOTED THROUGH OUT BODY. SLIGHT REDNESS NOTED TO BUTTOCKS. PT DENIES OF ANY PAINS. PT ORIENTED TO ROOM AND CALL SYSTEM. ALLERDIES NOTED, ALLERGY BAND AND FALL RISK BAND APPLIED. PT DENIES OF ANY ADDITIONAL NEEDS.ALL SAFTEY PRECAUTIONS ARE IN PLACE WITH CALL LIGHT IN REACH. WILL CONTINUE.
[2021-09-16 16:49] VITALS: BP 124/59
[2021-09-16 20:00] VITALS: BP 124/60
--- NOTE | 2021-09-16 20:10 | NUR ---
1900-REPORT RECEIVED FROM DAYSFLFT NURSE VIA SBAR FORMAT. PT IS STABLE, NO PAIN OR NEEDS REPORTED, CALL ROJAS AT REACH. 1999-RESTING IN BED, AWAKE, PATIENT IS INCONTINENT OF URINE, AUDIOVISUAL EQUIPMENT OPERATOR IN PATIENT ROOM PROVIDING PERICARE, PATIENT PERIAREA IS EXCORIATED, WILL APPLY BARRIER OINTMENT. NO OTHER NEEDS VOICED, WILL FOLLOW UP WITH REASSESSMENT AND MEDICATION ADMINISTREATION, CONTACT PRECAUTIONS IN PLACE.
[2021-09-16 21:20] LABS: URINE BILIRUBIN - DIPSTICK NEGATIVE (NEGATIVE); URINE BLOOD DIPSTICK NEGATIVE (NEGATIVE); URINE COLOR YELLOW; URINE GLUCOSE - DIPSTICK NEGATIVE (NEGATIVE); URINE KETONE NEGATIVE (NEGATIVE); URINE LEUK ESTERASE NEGATIVE (NEGATIVE); URINE PH 5.5 (4.5-8.0); URINE PROTEIN - DIPSTICK NEGATIVE (NEG-TRACE); URINE UROBILINOGEN - DIPSTICK 0.2 E.U./dL (0.2)
[2021-09-16 21:21] LABS: URINE NITRITE - DIPSTICK NEGATIVE (Negative)
[2021-09-17] VITALS: BP 106/58
--- NOTE | 2021-09-17 00:12 | NUR ---
VOICES NO COMPLAINTS, RESTING IN BED QUIETLY.
[2021-09-17 04:00] VITALS: BP 110/59
--- NOTE | 2021-09-17 04:51 | NUR ---
PATIENT IS INCONTINENT, NO BM'S NOTED, VOIDED ONLY, NO PAIN OR NEEDS REPORTED, WILL CONTINUE TO FOLLOW UP. CALL ROJAS AT REACH, SAFETY MEASURES IN PLACE. UNABLE TO COLLECT STOOL SAMPLE.
--- NOTE | 2021-09-17 06:55 | NUR ---
REPORT GIVEN TO DAYSHIFT NURSE VIA SBAR FORMAT; PT IS STABLE.
[2021-09-17 07:10] VITALS: BP 118/62
--- NOTE | 2021-09-17 07:10 | NUR ---
PATIENT LAYING IN BED AT THIS TIME. AWAKE AND ORIENTED X 3 CALL LIGHT WIHTIN REACH SIDERAILS UP X 2 PATIENT DENIES ANY PAIN. HYPERION ADMINISTRATOR DONE AT THIS TIME. SEE INTERVENTIONS. PATIENT PRESENTS WITH A NON PRODUCTIVE COUGH AT THIS TIME. NO EDEMA NOTED PERIAREA EXCORIATED AND BARRIER CREAM APPLIED. TELE MONITOR IN PLACE AT THIS TIME PATIENT IS ON ROOM AIR AND SPO2 IS 98% AT THIS TIME. TELE MONITOR IN PLACE AND BEING MONITORED BY ED.
[2021-09-17 08:05] LABS: HEMATOCRIT 26.7 % (39.0-50.0); HEMOGLOBIN 8.5 g/dl (14.0-18.0); IMMATURE GRANULOCYTES 0.2 % (0.0-5.0); MEAN CORPUSCULAR HGB 32.2 pG CALC (26.0-32.0); MEAN CORPUSCULAR HGB CONC 31.8 g/dL CAL (32.0-36.0); NEUT# 3.99 thou/uL (1.82-7.42); RED BLOOD COUNT 2.64 mill/uL (4.70-6.10); RED CELL DISTRI WIDTH 15.9 % (11.5-15.5)
[2021-09-17 08:12] LABS: MEAN CELL VOLUME 101.1 fL CALC (80.0-100.0)
[2021-09-17 09:15] LABS: ALKALINE PHOSPHATASE 86 u/l (38-126); ANION GAP 7 (6-22 (CALC)); BILIRUBIN, TOTAL 0.2 mg/dL (0.0-1.4); BUN 24 mg/dL (8-23); BUN/CREATININE RATIO 26 (12-20 (CALC)); CARBON DIOXIDE 20 mmol/l (22-30); CHLORIDE 118 mmol/l (95-108); CREATININE 0.9 mg/dL (0.7-1.3); GFR > 60 ML/MIN (>=60 (CALC)); GFR FOR AFR.AMER. > 60 ML/MIN (>=60 (CALC)); POTASSIUM 4.4 mmol/l (3.5-5.1); SGOT/AST 16 u/l (19-48); SODIUM 141 mmol/l (137-146); TOTAL PROTEIN 5.3 g/dL (6.3-8.2)
[2021-09-17 09:21] LABS: ALBUMIN 2.3 g/dL (3.2-5.0)
[2021-09-17 10:49] VITALS: BP 114/66
[2021-09-17] MEDS ORDERED: FIRVANQ25 MG/ML PO (10:55)
[2021-09-17] MEDS ORDERED: (None)125 MG PO (12:04)
--- NOTE | 2021-09-17 12:04 | NUR ---
PATIENT D/C AT THIS TIME IV REMOVED AT THIS TIME. TELE REMOVED AND ED NOTIFIED. PATIENT VERBALIZES UNDERSTANDING OF D/C AND WAS GIVEN DC INSTRUCTIONS WELL AND TOLD TO PLASTIC MACHINE OPERATOR PRESCRIPTION AT [facility] IN [place].
--- NOTE | 2021-09-17 12:38 | NUR ---
Discharge instructions given. Patient verbalizes understanding of same. Discharged in stable condition via Wheelchair to Home with spouse. All belongings sent with pt. PATIENT SENT HOME WIHT WITH [facility] ORDERS.
== END 2021-09-17 12:34 | disposition home health service (06) ==
LOC: ED 10:50 → ED-I 13:50 → ED 14:03 → MS2 14:04
PROVIDERS: ADMIT Internal Medicine; ATTEND Internal Medicine
DX: E86.0 Dehydration (principal); I95.9 Hypotension, unspecified; R19.7 Diarrhea, unspecified; I12.9 Hypertensive chronic kidney disease with stage 1 through stage 4 chronic kidney disease, or unspecified chronic kidney disease; E11.22 Type 2 diabetes mellitus with diabetic chronic kidney disease; N18.30 Chronic kidney disease, stage 3 unspecified; I48.20 Chronic atrial fibrillation, unspecified; D64.9 Anemia, unspecified; J44.9 Chronic obstructive pulmonary disease, unspecified; N40.0 Benign prostatic hyperplasia without lower urinary tract symptoms; F32.A Depression, unspecified; K21.9 Gastro-esophageal reflux disease without esophagitis; Z87.01 Personal history of pneumonia (recurrent); Z79.01 Long term (current) use of anticoagulants; Z86.73 Personal history of transient ischemic attack (TIA), and cerebral infarction without residual deficits; Z20.822 Contact with and (suspected) exposure to COVID-19
CPT/HCPCS: G0378

== ENCOUNTER 2021-09-19 17:39 | Observation (INO) | payer MEDICARE, OTHER ==
[~2021-09-19] VITALS: Ht 175.3 cm; Wt 61.0 kg
[~2021-09-19 17:39] MED LIST changes: +(None)125 MG PO; +FIRVANQ25 MG/ML PO; +INCRUSE EL62.5 MCG/I PO
--- NOTE | 2021-09-19 18:02 | NUR ---
PATIENT BROUGHT INTO ED VIA EMS. NO ACUTE DISTRESS. VSS. MD NOTIFIED OF PATIENT STATUS.
[2021-09-19 18:20] LABS: HEMOGLOBIN 8.6 g/dl (14.0-18.0); IMMATURE GRANULOCYTES 0.3 % (0.0-5.0); MEAN CELL VOLUME 104.9 fL CALC (80.0-100.0); MEAN CORPUSCULAR HGB 32.2 pG CALC (26.0-32.0); MEAN CORPUSCULAR HGB CONC 30.7 g/dL CAL (32.0-36.0); NEUT# 4.42 thou/uL (1.82-7.42); RED BLOOD COUNT 2.67 mill/uL (4.70-6.10); RED CELL DISTRI WIDTH 15.9 % (11.5-15.5)
[2021-09-19 18:32] LABS: ALBUMIN 2.9 g/dL (3.2-5.0); ALKALINE PHOSPHATASE 107 u/l (38-126); ANION GAP 10 (6-22 (CALC)); BILIRUBIN, TOTAL 0.2 mg/dL (0.0-1.4); BUN 27 mg/dL (8-23); BUN/CREATININE RATIO 21 (12-20 (CALC)); CARBON DIOXIDE 21 mmol/l (22-30); CHLORIDE 110 mmol/l (95-108); CREATININE 1.3 mg/dL (0.7-1.3); GFR 53 ML/MIN (>=60 (CALC)); GFR FOR AFR.AMER. > 60 ML/MIN (>=60 (CALC)); POTASSIUM 5.2 mmol/l (3.5-5.1); SGOT/AST 22 u/l (19-48); SODIUM 136 mmol/l (137-146); TOTAL PROTEIN 6.4 g/dL (6.3-8.2)
--- NOTE | 2021-09-19 18:55 | NUR ---
REPORT GIVEN TO [facility]
--- NOTE | 2021-09-19 19:01 | NUR ---
Reassessment of patient completed. No distress noted.
--- NOTE | 2021-09-19 19:02 | NUR ---
PT RETURNS FROM IMAGING, IV FLUIDS RESUMED, BP IMPROVED. PT DENIES ANY PAIN. PT STABLE. CALL LIGHT IN REACH.
--- NOTE | 2021-09-19 19:10 | NUR ---
SPOKE WITH PT'S ON THE PHONE AND GAVE UPDATE
--- NOTE | 2021-09-19 19:24 | NUR ---
PT GIVEN URINAL, INFORMED THAT A URINE SAMPLE IS NEEDED. PT STATES HE IS UNABLE TO PROVIDE AT THIS TIME.
--- NOTE | 2021-09-19 20:39 | NUR ---
PT ABLE TO PROVIDE URINE SAMPLE, COLLECTED AND TO LAB. PT STABLE, IV FLUIDS INFUSING VIA PUMP. CALL LIGHT IN REACH.
[2021-09-19 21:03] LABS: URINE BILIRUBIN - DIPSTICK NEGATIVE (NEGATIVE); URINE BLOOD DIPSTICK NEGATIVE (NEGATIVE); URINE COLOR YELLOW; URINE GLUCOSE - DIPSTICK NEGATIVE (NEGATIVE); URINE KETONE NEGATIVE (NEGATIVE); URINE LEUK ESTERASE TRACE (NEGATIVE); URINE PH 5.5 (4.5-8.0); URINE PROTEIN - DIPSTICK NEGATIVE (NEG-TRACE); URINE UROBILINOGEN - DIPSTICK 0.2 E.U./dL (0.2)
[2021-09-19 21:04] LABS: URINE NITRITE - DIPSTICK NEGATIVE (Negative)
--- NOTE | 2021-09-19 21:30 | NUR ---
PT RESTING COMFORTABLY, IV FLUIDS INFUSING VIA PUMP. PT WATCHING TV. CALL LIGHT IN REACH. VSS.
--- NOTE | 2021-09-19 21:33 | NUR ---
CALL PLACED TO MED/SURG TO GIVE REPORT-NO ANSWER.
--- NOTE | 2021-09-19 21:39 | NUR ---
REPORT RECEIVED FROM Winsome HUNTER RN
--- NOTE | 2021-09-19 21:42 | NUR ---
SBAR REPORT GIVEN TO MED/FRONT DESK SPECIALIST. PT GOING TO ROOM 270.
[2021-09-19 21:45] VITALS: BP 132/55
--- NOTE | 2021-09-19 21:46 | NUR ---
PT TAKEN BY STRETCHER TO MED/SURG ROOM 270 IN STABLE CONDITION. BELONGINGS AND PAPERWORK HANDED OFF TO STAFF.
[2021-09-20] VITALS: BP 128/60
[2021-09-20 04:39] VITALS: BP 148/64
--- NOTE | 2021-09-20 06:10 | NUR ---
ORAL ANTIBIOTIC GIVEN AT THIS TIME
--- NOTE | 2021-09-20 06:10 | NUR ---
PT ARRIVED VIA STRETCHER ACCOMPANIED BY Winsome HUNTER RN
[2021-09-20 06:11] LABS: HEMOGLOBIN 8.5 g/dl (14.0-18.0); MEAN CELL VOLUME 105.7 fL CALC (80.0-100.0); MEAN CORPUSCULAR HGB 32.1 pG CALC (26.0-32.0); MEAN CORPUSCULAR HGB CONC 30.4 g/dL CAL (32.0-36.0); RED BLOOD COUNT 2.65 mill/uL (4.70-6.10); RED CELL DISTRI WIDTH 15.9 % (11.5-15.5)
[2021-09-20 06:41] LABS: ANION GAP 8 (6-22 (CALC)); BUN 22 mg/dL (8-23); BUN/CREATININE RATIO 22 (12-20 (CALC)); CARBON DIOXIDE 17 mmol/l (22-30); CHLORIDE 116 mmol/l (95-108); GFR > 60 ML/MIN (>=60 (CALC)); GFR FOR AFR.AMER. > 60 ML/MIN (>=60 (CALC)); MAGNESIUM 1.3 mg/dL (1.6-2.3); POTASSIUM 4.8 mmol/l (3.5-5.1); SODIUM 137 mmol/l (137-146)
--- NOTE | 2021-09-20 07:20 | NUR ---
PT SLEEPING UPON ENTERING ROOM. UPON AWAKENING VITALS AND ASSESSMENT ALLOWED AT THIS TIME. LUNG SOUNDS CLEAR RUL AND TERESA ANTERIOR AND POSTERIOR. LLL AND RLL CLEAR/DIMINISHED ANTERIOR AND POSTERIOR. HEART SOUNDS RERGULAR ACTIVE BOWEL SOUNDS X4. RADIAL AND PEDAL PULSE WEAK. ACCUCHECK THIS MORNING 74. OJ JUICE PROVIDED. PT STATEs NO PAINAT THIS TIME. IV LOCATED 20G RAC INFUSING FLUIDS PER EMAR. FLUSHED WITH NO RESISTANCE. FALL/SAFTEY PRECAUTIONS IN PLACE. CALL LIGHT WITHIN REACH
[2021-09-20 09:22] VITALS: BP 132/66
--- NOTE | 2021-09-20 13:18 | NUR ---
PT RESTING WITH EYES CLOSED AT THIS TIME. TOLERATED VANCO PO WELL. BREATHING IS EVEN AND UNLABORED. ACCUCHECK 80 APPLE JUICE PROVIDED. CALL LIGHT IS WITHIN REACH. FALL/SAFTEY PRECAUTIONS IN PLACE. CALL LIGHT WITHIN REACH.
== END 2021-09-20 16:50 ==
LOC: ED 17:39 → ED-I 21:02 → ED 21:12 → MS2 21:13
PROVIDERS: Family Medicine; ADMIT Hospitalist; ATTEND Hospitalist
DX: R62.7 Adult failure to thrive (principal); E86.0 Dehydration; I12.9 Hypertensive chronic kidney disease with stage 1 through stage 4 chronic kidney disease, or unspecified chronic kidney disease; E11.22 Type 2 diabetes mellitus with diabetic chronic kidney disease; N18.30 Chronic kidney disease, stage 3 unspecified; J44.9 Chronic obstructive pulmonary disease, unspecified; I48.0 Paroxysmal atrial fibrillation; N40.0 Benign prostatic hyperplasia without lower urinary tract symptoms; F32.A Depression, unspecified; K21.9 Gastro-esophageal reflux disease without esophagitis; R91.8 Other nonspecific abnormal finding of lung field; J90 Pleural effusion, not elsewhere classified; R13.10 Dysphagia, unspecified; Z68.1 Body mass index [BMI] 19.9 or less, adult; Z87.01 Personal history of pneumonia (recurrent); Z86.73 Personal history of transient ischemic attack (TIA), and cerebral infarction without residual deficits; Z74.2 Need for assistance at home and no other household member able to render care; Z87.891 Personal history of nicotine dependence; Z20.822 Contact with and (suspected) exposure to COVID-19
CPT/HCPCS: J3475

== ENCOUNTER 2021-09-27 23:24 | Inpatient (IN) | payer MEDICARE, OTHER ==
[~2021-09-27] VITALS: Ht 175.3 cm; Wt 57.0 kg
--- NOTE | 2021-09-27 23:27 | NUR ---
BY EMS TO ROOM
[2021-09-28] VITALS (9 sets, daily range): BP systolic 74–101; BP diastolic 37–50
--- NOTE | 2021-09-28 | NUR ---
RESTING COMFORTABLY EXCEPT FOR PERSISTANT COUGH
[2021-09-28 00:32] LABS: HEMATOCRIT 33.8 % (39.0-50.0); HEMOGLOBIN 10.4 g/dl (14.0-18.0); IMMATURE GRANULOCYTES 0.2 % (0.0-5.0); MEAN CELL VOLUME 102.7 fL CALC (80.0-100.0); MEAN CORPUSCULAR HGB 31.6 pG CALC (26.0-32.0); MEAN CORPUSCULAR HGB CONC 30.8 g/dL CAL (32.0-36.0); NEUT# 17.28 thou/uL (1.82-7.42); RED BLOOD COUNT 3.29 mill/uL (4.70-6.10); RED CELL DISTRI WIDTH 15.8 % (11.5-15.5)
[2021-09-28 00:39] LABS: ALKALINE PHOSPHATASE 112 u/l (38-126); BUN 26 mg/dL (8-23); BUN/CREATININE RATIO 18 (12-20 (CALC)); CARBON DIOXIDE 20 mmol/l (22-30); CHLORIDE 111 mmol/l (95-108); CREATININE 1.4 mg/dL (0.7-1.3); GFR 48 ML/MIN (>=60 (CALC)); GFR FOR AFR.AMER. 58 ML/MIN (>=60 (CALC)); LIPASE 65 u/l (23-300); SGOT/AST 23 u/l (19-48); SODIUM 138 mmol/l (137-146); TOTAL PROTEIN 6.4 g/dL (6.3-8.2)
[2021-09-28 00:40] LABS: ACT PARTIAL THROMBO TIME 29.2 SECONDS (20.0-32.5); INTERNATIONAL NORMALIZED RATIO 1.1 RATIO (0.7-1.3); PROTHROMBIN TIME 11.6 SECONDS (9.0-12.5)
[2021-09-28 00:46] LABS: ANION GAP 12 (6-22 (CALC)); BILIRUBIN, TOTAL 0.3 mg/dL (0.0-1.4); POTASSIUM 5.4 mmol/l (3.5-5.1)
--- NOTE | 2021-09-28 02:00 | NUR ---
COUGHING LESS. APPEARS MORE COMFORTABLE
[2021-09-28] MEDS ORDERED: MULT VITAMI1 PO (03:25)
--- NOTE | 2021-09-28 05:57 | NUR ---
REMAINS ASLEEP. IV PATENT. NAD.
--- NOTE | 2021-09-28 08:00 | NUR ---
REPORT CALLED TO MED/SURG NURSE
--- NOTE | 2021-09-28 08:16 | NUR ---
PT ARRIVED TO FLOOR VIA STRETCHER. PT A&OX3. PT PALE AND APPEARS WEAK. PT DENIES ANY PAIN OR DISCOMFORT. SKIN INTACT, SCATTER BRUISING NOTED TO UPPER AND LOWER BILATERAL EXTREMITIES. HEELS SOFT, RED/BLANCHABLE, OFFLOADED WITH PILLOWS. CAKE WASHER IN PLACE. IV SITE APPEARS HEALTHY, FLUSHED WELL. DISCUSS POC AND SAFETY. PT VERBALIZED UNDERSTANDING. CALL LIGHT WITHIN REACH. WILL CONTINUE TO MONITOR.
--- NOTE | 2021-09-28 08:20 | NUR ---
PATIENT TAKEN TO FLOOR WITH ALL BELONGINGS PATIENT HAS 1 CELL PHONE, NO CHARGED NO DENTURES.
--- NOTE | 2021-09-28 10:15 | NUR ---
PHYSICIAN AT BEDSIDE TO DISCUSS POC.
--- NOTE | 2021-09-28 10:26 | NUR ---
PER [facility] JAXON CARBIDE POWDER PROCESSOR, PT LAST DOSE OF XARELTO RECEIVED WAS AT 9AM 09/27/21.
--- NOTE | 2021-09-28 14:09 | NUR ---
PT RESTING IN BED WITH EYES CLOSED. NO APPARENT DISTRESS NOTED. 02 @ 2L/M VIA NC. PT WAKES EASILY, DENIES ANY PAIN OR SOB AT THIS TIME. BP REMAINS LOW, ALISSA RIDDLE AWARE. CALL LIGHT WITHIN REACH. WILL CONTINUE TO MONITOR.
--- NOTE | 2021-09-28 19:30 | NUR ---
REPORT RECEIVED FROM Ethel ANGULO LPN, PATIENT CARE ASSUMED AT THIS TIME.
--- NOTE | 2021-09-28 20:35 | NUR ---
PT ON PHONE WITH , PT IN ICU.
[2021-09-29] VITALS (9 sets, daily range): BP systolic 106–136; BP diastolic 49–63
--- NOTE | 2021-09-29 00:30 | NUR ---
ANTIBIOTIC HUNG AT THIS TIME. PT DENIES ANY CURRENT NEEDS. CALL LIGHT AND BEDSIDE TABLE WITHIN REACH.
--- NOTE | 2021-09-29 02:00 | NUR ---
PT WITH AT BEDSIDE, EXTREMELY CONFUSED, CALMS WITH .
[2021-09-29 06:05] LABS: MEAN CELL VOLUME 103.6 fL CALC (80.0-100.0); MEAN CORPUSCULAR HGB CONC 30.9 g/dL CAL (32.0-36.0); RED BLOOD COUNT 2.22 mill/uL (4.70-6.10); RED CELL DISTRI WIDTH 16.1 % (11.5-15.5)
[2021-09-29 06:16] LABS: ANION GAP 7 (6-22 (CALC)); BUN 25 mg/dL (8-23); BUN/CREATININE RATIO 20 (12-20 (CALC)); CARBON DIOXIDE 18 mmol/l (22-30); CHLORIDE 120 mmol/l (95-108); CREATININE 1.2 mg/dL (0.7-1.3); GFR 58 ML/MIN (>=60 (CALC)); GFR FOR AFR.AMER. > 60 ML/MIN (>=60 (CALC)); MAGNESIUM 1.3 mg/dL (1.6-2.3); SODIUM 141 mmol/l (137-146)
[2021-09-29 06:26] LABS: POTASSIUM 4.1 mmol/l (3.5-5.1)
[2021-09-29 06:48] LABS: HEMOGLOBIN 7.1 g/dl (14.0-18.0)
--- NOTE | 2021-09-29 08:00 | NUR ---
SHIFT CHANGE REPORT, PT AWAKE ALERT AND ORIENTED, NO C/O DISCOMFORT, IVF INFUSING, TELE MONITOR IN PLACE, CALL ROJAS IN REACH AND BED LOCKED IN LOWEST POSITION.
--- NOTE | 2021-09-29 12:00 | NUR ---
SITTING UP IN RECLINER, NO C/O DISCOMFORT, CALL ROJAS IN REACH
--- NOTE | 2021-09-29 13:17 | NUR ---
S- Pt reported not having a good night due to his 's confusion. 0- Pt resting in bed supine, reported some heel soreness, lotion applied. He performed 2 x 10 reps of heel slides, hip abd, clam shells and SAQ. Pt had large soft BM and was cleaned, new brief, OCCUPATIONAL HEALTH AND SAFETY MANAGER aware. Pt rolled side to side with modified indep using bed rail, supine to sit with mod/max assist. Sitting balance was decreased, tends to lean backwards and required CGA. Transfer to chair with min/mod assist. Gait with RW 2 x 30 with CGA/min assist , 1st walk without 02 and desat to 85% with 02 sat 95% Pt BP 102/55 supine with initial sitting 95/46 with some lightheadedness but reported being better than yesterday. BP after walking 114/49 HR 61. Gait belt and non skid socks in place during treatment. Time spent with pt 50 min. Pt left in chair with call brock in reach and MD present. A- Pt [facility] ECF P- Will follow.
--- NOTE | 2021-09-29 16:00 | NUR ---
SITTING UP IN RECLINER AND ASSISTED BACK TO BED, ALL NEEDS ADDRESSED, CALL ROJAS IN REACH.
--- NOTE | 2021-09-29 19:30 | NUR ---
PATIENT RESTING IN BED AT THIS TIME WITH HOB ELEVATED AND O2 VIA NASAL CANNULA IN PLACE AT 2LPM. PATIENT WITH EYES CLOSED. RESPS ARE EVEN AND UNLABORED. BLOOD TRANSFUSION IN PROGRESS VIA RAC SITE-SITE IS HEALTHY AT THIS TIME. TELE MONITOR IN PLACE. CALL LIGHT IN REACH. WILL CONT TO MONITOR.
--- NOTE | 2021-09-29 21:00 | NUR ---
PATIENT RESTING IN BED AT THIS TIME WITH O2 VIA NASAL CANNULA IN PLACE-O2 SAT IS 97% WITH O2 AT 2LPM. BLOOD TRANSFUSION COMPLETED WITHOUT ANY ADVERSE REACTIONS. IVF NS PATENT AND INFUSING VIA RAC SITE AT 30CC/HR. SITE REMAINS HEALTHY AT THIS TIME. TELE MONITOR IN PLACE WITH LAST READING BEING SR-88. SAFETY PRECAUTIONS REINFORCED. CALL LIGHT IN REACH. WILL CONT TO MONITOR.
--- NOTE | 2021-09-29 22:11 | NUR ---
PATIENT INCONT OF MODERATE AMT OF YELLOW URINE. PERICARE PROVIDED WITH SOAP AND WATER. BARRIER CREAM APPLIED TO RED BUTTOCKS. TURNED AND REPOSITIONED. O2 REMAINS IN PLACE AT 2LPM. IVF PATENT AND INFUSING VIA LAC SITE AT KVO RATE. TELE MONITOR IN PLACE. PATIENT WITH LOOSE NON-PRODUCTIVE COUGH. WEAK COUGH NOT ABLE TO EXPECTORATE THE SECREATIONS. SAFETY PRECAUTIONS REINFORCED. CALL LIGHT IN REACH. WILL CONT TO MONITOR.
[2021-09-30 00:06] VITALS: BP 132/68
--- NOTE | 2021-09-30 00:39 | NUR ---
PATIENT INCONT OF MODERATE AMT OF YELLOW URINE-PERICARE PROVIDED. TURNED AND REPOSITIONED. O2 VIA NASAL CANNULA REMAINS IN PLACE. TAKING SIPS OF THICKENED APPLE JUICE. ZOSYN HUNG ORDERED AND INFUSING VIA LAC SITE. TELE MONITOR IN PLACE-LAST READING WAS SR-85. CALL LIGHT IN REACH. WILL CONT TO MONITOR.
[2021-09-30 04:00] VITALS: BP 134/70
[2021-09-30 05:37] LABS: HEMOGLOBIN 8.5 g/dl (14.0-18.0); MEAN CELL VOLUME 99.6 fL CALC (80.0-100.0); MEAN CORPUSCULAR HGB 31.4 pG CALC (26.0-32.0); MEAN CORPUSCULAR HGB CONC 31.5 g/dL CAL (32.0-36.0); RED BLOOD COUNT 2.71 mill/uL (4.70-6.10); RED CELL DISTRI WIDTH 17.1 % (11.5-15.5)
[2021-09-30 05:59] LABS: ANION GAP 8 (6-22 (CALC)); BUN 21 mg/dL (8-23); BUN/CREATININE RATIO 20 (12-20 (CALC)); CARBON DIOXIDE 19 mmol/l (22-30); CHLORIDE 116 mmol/l (95-108); CREATININE 1.1 mg/dL (0.7-1.3); GFR > 60 ML/MIN (>=60 (CALC)); GFR FOR AFR.AMER. > 60 ML/MIN (>=60 (CALC)); POTASSIUM 4.3 mmol/l (3.5-5.1); SODIUM 139 mmol/l (137-146)
[2021-09-30 06:14] LABS: URINE BILIRUBIN - DIPSTICK NEGATIVE (NEGATIVE); URINE BLOOD DIPSTICK NEGATIVE (NEGATIVE); URINE COLOR YELLOW; URINE GLUCOSE - DIPSTICK NEGATIVE (NEGATIVE); URINE KETONE NEGATIVE (NEGATIVE); URINE PH 5.5 (4.5-8.0); URINE PROTEIN - DIPSTICK NEGATIVE (NEG-TRACE); URINE SPECIFIC GRAVITY 1.025; URINE UROBILINOGEN - DIPSTICK 0.2 E.U./dL (0.2)
[2021-09-30 06:25] LABS: URINE LEUK ESTERASE SMALL (NEGATIVE); URINE NITRITE - DIPSTICK NEGATIVE (Negative)
[2021-09-30 06:26] LABS: URINE RBC 0-2 RBC/hpf (0-5); URINE SQUAMOUS EPITHELIAL CELL FEW EPI/hpf (0-FEW)
[2021-09-30 06:27] LABS: URINE BACTERIA FEW hpf
[2021-09-30 06:59] VITALS: BP 147/67
[2021-09-30 08:42] VITALS: BP 121/67
[2021-09-30 11:25] VITALS: BP 131/60
--- NOTE | 2021-09-30 12:09 | NUR ---
S- pt reported sleeping better last night. 0- pt resting in bed, no complaints voiced, he was in large amtsof soft brown stool. Pt olivia care done with soap and water, protective cream applied, nurse/BIODIESEL ENGINEERING MANAGER aware. AROM ex performed to BLE in supine 2 x 10 reps. Pt rolled side to side with modified indep using bed rails. Mod assist required for supine to sitting on edge of bed. Sitting required SBA/CGA. Gait with RW 2 x 40' with CGA/min assist. Pt left in chair with call brock/phone and tray in reach. Time spent with pt 55 min. BP 135/62 supine, [id number] with initial sitting and 139/63 after walking, HR in 80's, 02 sats 96% stable A- Pt mobility slowlly inproving. [facility] 11 ECF P- will follow per POC.
[2021-09-30] MEDS ORDERED: LEVAQUIN750 M1 PO (12:20)
[2021-09-30 15:47] VITALS: BP 149/71
== END 2021-09-30 17:08 | DRG 871 ==
LOC: ED 23:24 → ED-I 09-28 02:44 → ED 09-28 02:59 → ED-I 09-28 03:00 → MS2 09-28 03:00
PROVIDERS: Nurse Practitioner; ADMIT Internal Medicine; ATTEND Internal Medicine
PROC: 30233N1 Transfusion of Nonautologous Red Blood Cells into Peripheral Vein, Percutaneous Approach (ICD-10-PCS; principal; 2021-09-29)
DX: A41.9 Sepsis, unspecified organism (principal); J69.0 Pneumonitis due to inhalation of food and vomit; Z68.1 Body mass index [BMI] 19.9 or less, adult; N39.0 Urinary tract infection, site not specified; I95.9 Hypotension, unspecified; D64.9 Anemia, unspecified; E11.22 Type 2 diabetes mellitus with diabetic chronic kidney disease; I12.9 Hypertensive chronic kidney disease with stage 1 through stage 4 chronic kidney disease, or unspecified chronic kidney disease; N18.30 Chronic kidney disease, stage 3 unspecified; E86.0 Dehydration; R09.02 Hypoxemia; I48.0 Paroxysmal atrial fibrillation; J44.9 Chronic obstructive pulmonary disease, unspecified; F32.A Depression, unspecified; K21.9 Gastro-esophageal reflux disease without esophagitis; R62.7 Adult failure to thrive; Z87.01 Personal history of pneumonia (recurrent); Z87.891 Personal history of nicotine dependence; Z79.01 Long term (current) use of anticoagulants; Z86.73 Personal history of transient ischemic attack (TIA), and cerebral infarction without residual deficits; Z20.822 Contact with and (suspected) exposure to COVID-19
CPT/HCPCS: J0131; J1650; J3475; P9016

== ENCOUNTER 2021-10-17 19:58 | Emergency (ER) | payer MEDICARE, OTHER ==
[~2021-10-17] VITALS: Ht 175.3 cm; Wt 55.0 kg
[~2021-10-17 19:58] MED LIST changes: +MULT VITAMI1 PO
[2021-10-17 20:52] LABS: IMMATURE GRANULOCYTES 0.1 % (0.0-5.0); MEAN CELL VOLUME 99.7 fL CALC (80.0-100.0); MEAN CORPUSCULAR HGB CONC 31.1 g/dL CAL (32.0-36.0); NEUT# 12.71 thou/uL (1.82-7.42); RED BLOOD COUNT 3.52 mill/uL (4.70-6.10); RED CELL DISTRI WIDTH 15.6 % (11.5-15.5)
[2021-10-17 20:53] LABS: HEMATOCRIT 35.1 % (39.0-50.0); HEMOGLOBIN 10.9 g/dl (14.0-18.0)
[2021-10-17 21:06] LABS: ALBUMIN 2.7 g/dL (3.2-5.0); ALKALINE PHOSPHATASE 98 u/l (38-126); ANION GAP 16 (6-22 (CALC)); BILIRUBIN, TOTAL 0.2 mg/dL (0.0-1.4); BUN 32 mg/dL (8-23); BUN/CREATININE RATIO 28 (12-20 (CALC)); CARBON DIOXIDE 18 mmol/l (22-30); CHLORIDE 107 mmol/l (95-108); CREATININE 1.1 mg/dL (0.7-1.3); GFR > 60 ML/MIN (>=60 (CALC)); GFR FOR AFR.AMER. > 60 ML/MIN (>=60 (CALC)); MAGNESIUM 1.2 mg/dL (1.6-2.3); POTASSIUM 4.5 mmol/l (3.5-5.1); SGOT/AST 23 u/l (19-48); SODIUM 137 mmol/l (137-146); TOTAL PROTEIN 5.7 g/dL (6.3-8.2)
[2021-10-18 04:55] LABS: URINE BILIRUBIN - DIPSTICK NEGATIVE (NEGATIVE); URINE BLOOD DIPSTICK NEGATIVE (NEGATIVE); URINE COLOR YELLOW; URINE GLUCOSE - DIPSTICK NEGATIVE (NEGATIVE); URINE KETONE TRACE mg/dL (NEGATIVE); URINE LEUK ESTERASE TRACE (NEGATIVE); URINE NITRITE - DIPSTICK NEGATIVE (Negative); URINE PROTEIN - DIPSTICK NEGATIVE (NEG-TRACE); URINE SPECIFIC GRAVITY 1.025; URINE UROBILINOGEN - DIPSTICK 0.2 E.U./dL (0.2)
[2021-10-18 07:09] VITALS: BP 109/55
== END 2021-10-18 07:09 ==
LOC: ED 19:58
PROVIDERS: Family Medicine
DX: R11.0 Nausea (principal); R62.7 Adult failure to thrive; R53.1 Weakness; D72.829 Elevated white blood cell count, unspecified; I12.9 Hypertensive chronic kidney disease with stage 1 through stage 4 chronic kidney disease, or unspecified chronic kidney disease; E11.22 Type 2 diabetes mellitus with diabetic chronic kidney disease; N18.30 Chronic kidney disease, stage 3 unspecified; J44.9 Chronic obstructive pulmonary disease, unspecified; I48.91 Unspecified atrial fibrillation; N40.0 Benign prostatic hyperplasia without lower urinary tract symptoms; F32.A Depression, unspecified; K21.9 Gastro-esophageal reflux disease without esophagitis; Z87.01 Personal history of pneumonia (recurrent); Z86.73 Personal history of transient ischemic attack (TIA), and cerebral infarction without residual deficits

== ENCOUNTER 2021-11-07 12:38 | Observation (INO) | payer MEDICARE, OTHER ==
[~2021-11-07] VITALS: Ht 175.3 cm; Wt 70.0 kg
[2021-11-07] VITALS (15 sets, daily range): BP systolic 113–157; BP diastolic 58–77
[~2021-11-07 12:38] MED LIST changes: +CEFTRIAX/DEX1 GM IV; +KLOR-CON M2020 MEQ PO
[2021-11-07 13:31] LABS: HEMOGLOBIN 11.1 g/dl (14.0-18.0); IMMATURE GRANULOCYTES 0.3 % (0.0-5.0); MEAN CELL VOLUME 99.7 fL CALC (80.0-100.0); MEAN CORPUSCULAR HGB 30.7 pG CALC (26.0-32.0); MEAN CORPUSCULAR HGB CONC 30.8 g/dL CAL (32.0-36.0); NEUT# 8.23 thou/uL (1.82-7.42); RED BLOOD COUNT 3.61 mill/uL (4.70-6.10); RED CELL DISTRI WIDTH 17.2 % (11.5-15.5)
[2021-11-07 13:40] LABS: ALBUMIN 2.3 g/dL (3.2-5.0); ALKALINE PHOSPHATASE 82 u/l (38-126); ANION GAP 8 (6-22 (CALC)); BILIRUBIN, TOTAL 0.2 mg/dL (0.0-1.4); CARBON DIOXIDE 19 mmol/l (22-30); CHLORIDE 115 mmol/l (95-108); CREATININE 0.8 mg/dL (0.7-1.3); GFR > 60 ML/MIN (>=60 (CALC)); GFR FOR AFR.AMER. > 60 ML/MIN (>=60 (CALC)); SGOT/AST 24 u/l (19-48); SODIUM 137 mmol/l (137-146); TOTAL PROTEIN 5.4 g/dL (6.3-8.2)
[2021-11-07 13:41] LABS: BUN 8 mg/dL (8-23); BUN/CREATININE RATIO 10 (12-20 (CALC)); POTASSIUM 5.4 mmol/l (3.5-5.1)
[2021-11-07 15:34] LABS: URINE BILIRUBIN - DIPSTICK NEGATIVE (NEGATIVE); URINE BLOOD DIPSTICK NEGATIVE (NEGATIVE); URINE COLOR YELLOW; URINE GLUCOSE - DIPSTICK NEGATIVE (NEGATIVE); URINE KETONE NEGATIVE (NEGATIVE); URINE LEUK ESTERASE TRACE (NEGATIVE); URINE PH 5.5 (4.5-8.0); URINE PROTEIN - DIPSTICK NEGATIVE (NEG-TRACE); URINE UROBILINOGEN - DIPSTICK 0.2 E.U./dL (0.2)
[2021-11-07 15:38] LABS: URINE NITRITE - DIPSTICK NEGATIVE (Negative)
[2021-11-08] VITALS: BP 143/45
[2021-11-08 04:00] VITALS: BP 141/39
[2021-11-08 06:59] LABS: HEMATOCRIT 34.3 % (39.0-50.0); HEMOGLOBIN 10.9 g/dl (14.0-18.0); MEAN CELL VOLUME 97.2 fL CALC (80.0-100.0); MEAN CORPUSCULAR HGB 30.9 pG CALC (26.0-32.0); MEAN CORPUSCULAR HGB CONC 31.8 g/dL CAL (32.0-36.0); RED BLOOD COUNT 3.53 mill/uL (4.70-6.10); RED CELL DISTRI WIDTH 17.3 % (11.5-15.5)
[2021-11-08 07:10] LABS: BUN 8 mg/dL (8-23); BUN/CREATININE RATIO 9 (12-20 (CALC)); CARBON DIOXIDE 20 mmol/l (22-30); CHLORIDE 117 mmol/l (95-108); CREATININE 0.9 mg/dL (0.7-1.3); GFR > 60 ML/MIN (>=60 (CALC)); GFR FOR AFR.AMER. > 60 ML/MIN (>=60 (CALC)); SODIUM 141 mmol/l (137-146)
[2021-11-08 07:13] LABS: ANION GAP 9 (6-22 (CALC)); POTASSIUM 4.9 mmol/l (3.5-5.1)
[2021-11-08 07:57] VITALS: BP 153/60
[2021-11-08 10:16] VITALS: BP 135/57
[2021-11-08] MEDS ORDERED: ONDANSETRON4 MG PO (10:47)
[2021-11-08] MEDS ORDERED: POLYETHYLENE3350 MG XX (10:48)
[2021-11-08] MEDS ORDERED: DULCOLAX10 MG RE (10:49)
[2021-11-08] MEDS ORDERED: COENZYME Q-10100 MG PO (10:49)
[2021-11-08] MEDS ORDERED: REMERON7.5 MG PO (10:53)
[2021-11-08] MEDS ORDERED: MILK OF MAGNESI1 SUS PO (11:04)
[2021-11-08] MEDS ORDERED: MULTIVITAMIN1 TA1 PO (11:04)
[2021-11-08] MEDS ORDERED: APAP325 MG PO (11:05)
[2021-11-08 15:09] VITALS: BP 157/70
== END 2021-11-08 18:35 ==
LOC: ED 12:38 → ED-I 13:49 → ED 13:49 → ED-I 15:14 → ED 15:46 → MS2 15:47
PROVIDERS: Family Medicine; ADMIT Internal Medicine; ATTEND Internal Medicine
DX: J69.0 Pneumonitis due to inhalation of food and vomit (principal); E87.5 Hyperkalemia; I12.9 Hypertensive chronic kidney disease with stage 1 through stage 4 chronic kidney disease, or unspecified chronic kidney disease; E11.22 Type 2 diabetes mellitus with diabetic chronic kidney disease; N18.30 Chronic kidney disease, stage 3 unspecified; R13.10 Dysphagia, unspecified; R53.1 Weakness; R62.7 Adult failure to thrive; J44.9 Chronic obstructive pulmonary disease, unspecified; I48.20 Chronic atrial fibrillation, unspecified; N40.0 Benign prostatic hyperplasia without lower urinary tract symptoms; K21.9 Gastro-esophageal reflux disease without esophagitis; R19.7 Diarrhea, unspecified; F32.A Depression, unspecified; Z68.22 Body mass index [BMI] 22.0-22.9, adult; Z87.01 Personal history of pneumonia (recurrent); Z86.73 Personal history of transient ischemic attack (TIA), and cerebral infarction without residual deficits; Z87.891 Personal history of nicotine dependence; Z20.822 Contact with and (suspected) exposure to COVID-19
CPT/HCPCS: G0378; J3475

== ENCOUNTER 2021-11-24 14:56 | Inpatient (IN) | payer MEDICARE, OTHER ==
[~2021-11-24] VITALS: Ht 175.3 cm; Wt 51.0 kg
[~2021-11-24 14:56] MED LIST changes: +APAP325 MG PO; +COENZYME Q-10100 MG PO; +DULCOLAX10 MG RE; +INCRUSE EL62.5 MCG/I IN; -INCRUSE EL62.5 MCG/I PO; +MILK OF MAGNESI1 SUS PO; +MULTIVITAMIN1 TA1 PO; +POLYETHYLENE3350 MG PO; +REMERON7.5 MG PO
[2021-11-24 15:38] VITALS: BP 120/61
[2021-11-24 16:08] LABS: HEMATOCRIT 38.2 % (39.0-50.0); IMMATURE GRANULOCYTES 0.2 % (0.0-5.0); MEAN CELL VOLUME 98.5 fL CALC (80.0-100.0); MEAN CORPUSCULAR HGB 30.9 pG CALC (26.0-32.0); MEAN CORPUSCULAR HGB CONC 31.4 g/dL CAL (32.0-36.0); NEUT# 9.19 thou/uL (1.82-7.42); RED BLOOD COUNT 3.88 mill/uL (4.70-6.10); RED CELL DISTRI WIDTH 17.6 % (11.5-15.5)
[2021-11-24 16:27] LABS: ALBUMIN 2.7 g/dL (3.2-5.0); BUN 21 mg/dL (8-23); BUN/CREATININE RATIO 21 (12-20 (CALC)); CARBON DIOXIDE 22 mmol/l (22-30); CHLORIDE 115 mmol/l (95-108); GFR > 60 ML/MIN (>=60 (CALC)); GFR FOR AFR.AMER. > 60 ML/MIN (>=60 (CALC)); MAGNESIUM 1.5 mg/dL (1.6-2.3); SGOT/AST 19 u/l (19-48); SODIUM 143 mmol/l (137-146); TOTAL PROTEIN 6.2 g/dL (6.3-8.2)
[2021-11-24 16:28] LABS: ALKALINE PHOSPHATASE 152 u/l (38-126); ANION GAP 9 (6-22 (CALC)); BILIRUBIN, TOTAL 0.3 mg/dL (0.0-1.4); POTASSIUM 3.1 mmol/l (3.5-5.1)
[2021-11-24 16:32] LABS: ACT PARTIAL THROMBO TIME 40.3 SECONDS (20.0-32.5); INTERNATIONAL NORMALIZED RATIO 1.3 RATIO (0.7-1.3); PROTHROMBIN TIME 13.3 SECONDS (9.0-12.5)
[2021-11-24 18:47] VITALS: BP 111/54
[2021-11-24 20:27] VITALS: BP 116/58
[2021-11-24 23:15] VITALS: BP 111/48
[2021-11-25] VITALS (8 sets, daily range): BP systolic 120–148; BP diastolic 47–66
[2021-11-25 05:07] LABS: HEMATOCRIT 33.6 % (39.0-50.0); HEMOGLOBIN 10.2 g/dl (14.0-18.0); MEAN CELL VOLUME 102.1 fL CALC (80.0-100.0); MEAN CORPUSCULAR HGB CONC 30.4 g/dL CAL (32.0-36.0); RED BLOOD COUNT 3.29 mill/uL (4.70-6.10); RED CELL DISTRI WIDTH 17.6 % (11.5-15.5)
[2021-11-25 05:30] LABS: BUN 24 mg/dL (8-23); BUN/CREATININE RATIO 25 (12-20 (CALC)); CARBON DIOXIDE 18 mmol/l (22-30); CHLORIDE 121 mmol/l (95-108); GFR > 60 ML/MIN (>=60 (CALC)); GFR FOR AFR.AMER. > 60 ML/MIN (>=60 (CALC)); SODIUM 142 mmol/l (137-146)
[2021-11-25 05:32] LABS: ANION GAP 7 (6-22 (CALC)); MAGNESIUM 2.2 mg/dL (1.6-2.3); POTASSIUM 3.9 mmol/l (3.5-5.1)
[2021-11-26 02:28] VITALS: BP 143/53
[2021-11-26 07:55] VITALS: BP 116/55
[2021-11-26 10:53] LABS: HEMATOCRIT 32.5 % (39.0-50.0); HEMOGLOBIN 9.5 g/dl (14.0-18.0); MEAN CELL VOLUME 106.6 fL CALC (80.0-100.0); MEAN CORPUSCULAR HGB 31.1 pG CALC (26.0-32.0); MEAN CORPUSCULAR HGB CONC 29.2 g/dL CAL (32.0-36.0); RED BLOOD COUNT 3.05 mill/uL (4.70-6.10); RED CELL DISTRI WIDTH 17.9 % (11.5-15.5)
[2021-11-26 11:07] VITALS: BP 104/47
[2021-11-26 11:28] LABS: ALKALINE PHOSPHATASE 78 u/l (38-126); ANION GAP 7 (6-22 (CALC)); BILIRUBIN, TOTAL 0.4 mg/dL (0.0-1.4); BUN 16 mg/dL (8-23); BUN/CREATININE RATIO 20 (12-20 (CALC)); CARBON DIOXIDE 16 mmol/l (22-30); CHLORIDE 125 mmol/l (95-108); CREATININE 0.8 mg/dL (0.7-1.3); GFR > 60 ML/MIN (>=60 (CALC)); GFR FOR AFR.AMER. > 60 ML/MIN (>=60 (CALC)); POTASSIUM 4.3 mmol/l (3.5-5.1); SGOT/AST 30 u/l (19-48); SODIUM 144 mmol/l (137-146)
[2021-11-26 11:30] LABS: ALBUMIN 1.7 g/dL (3.2-5.0); MAGNESIUM 1.6 mg/dL (1.6-2.3); TOTAL PROTEIN 4.6 g/dL (6.3-8.2)
[2021-11-26 14:48] VITALS: BP 104/49
[2021-11-26 18:10] VITALS: BP 97/44
[2021-11-27] VITALS (7 sets, daily range): BP systolic 112–135; BP diastolic 49–76
[2021-11-28] VITALS (8 sets, daily range): BP systolic 96–161; BP diastolic 15–74
[2021-11-28 05:07] LABS: HEMATOCRIT 28.2 % (39.0-50.0); HEMOGLOBIN 8.7 g/dl (14.0-18.0); IMMATURE GRANULOCYTES 0.5 % (0.0-5.0); MEAN CORPUSCULAR HGB 30.7 pG CALC (26.0-32.0); MEAN CORPUSCULAR HGB CONC 30.9 g/dL CAL (32.0-36.0); NEUT# 5.8 thou/uL (1.82-7.42); RED BLOOD COUNT 2.83 mill/uL (4.70-6.10); RED CELL DISTRI WIDTH 18.2 % (11.5-15.5)
[2021-11-28 05:17] LABS: MEAN CELL VOLUME 99.6 fL CALC (80.0-100.0)
[2021-11-28 05:18] LABS: INTERNATIONAL NORMALIZED RATIO 1.3 RATIO (0.7-1.3)
[2021-11-28 05:21] LABS: BUN 9 mg/dL (8-23); BUN/CREATININE RATIO 10 (12-20 (CALC)); CARBON DIOXIDE 17 mmol/l (22-30); CHLORIDE 124 mmol/l (95-108); CREATININE 0.8 mg/dL (0.7-1.3); GFR > 60 ML/MIN (>=60 (CALC)); GFR FOR AFR.AMER. > 60 ML/MIN (>=60 (CALC)); SODIUM 142 mmol/l (137-146)
[2021-11-28 05:30] LABS: ANION GAP 4 (6-22 (CALC))
[2021-11-28 05:39] LABS: C. DIFFICILE TOXIN A&B NEGATIVE (NEGATIVE)
[2021-11-29] VITALS (12 sets, daily range): BP systolic 112–158; BP diastolic 34–73
[2021-11-29 05:50] LABS: HEMATOCRIT 31.9 % (39.0-50.0); MEAN CELL VOLUME 100.3 fL CALC (80.0-100.0); MEAN CORPUSCULAR HGB 31.4 pG CALC (26.0-32.0); MEAN CORPUSCULAR HGB CONC 31.3 g/dL CAL (32.0-36.0); RED BLOOD COUNT 3.18 mill/uL (4.70-6.10); RED CELL DISTRI WIDTH 18.3 % (11.5-15.5)
[2021-11-29 05:52] LABS: ANION GAP 7 (6-22 (CALC)); BUN 7 mg/dL (8-23); BUN/CREATININE RATIO 8 (12-20 (CALC)); CARBON DIOXIDE 16 mmol/l (22-30); CHLORIDE 123 mmol/l (95-108); CREATININE 0.9 mg/dL (0.7-1.3); GFR > 60 ML/MIN (>=60 (CALC)); GFR FOR AFR.AMER. > 60 ML/MIN (>=60 (CALC)); MAGNESIUM 1.4 mg/dL (1.6-2.3); SODIUM 142 mmol/l (137-146)
[2021-11-29 05:57] LABS: POTASSIUM 3.7 mmol/l (3.5-5.1)
[2021-11-30] VITALS: BP 104/26
[2021-11-30 04:00] VITALS: BP 128/38
[2021-11-30 05:18] LABS: HEMATOCRIT 35.3 % (39.0-50.0); MEAN CELL VOLUME 98.9 fL CALC (80.0-100.0); MEAN CORPUSCULAR HGB 30.8 pG CALC (26.0-32.0); MEAN CORPUSCULAR HGB CONC 31.2 g/dL CAL (32.0-36.0); RED BLOOD COUNT 3.57 mill/uL (4.70-6.10); RED CELL DISTRI WIDTH 18.4 % (11.5-15.5)
[2021-11-30 05:39] LABS: ANION GAP 9 (6-22 (CALC)); BUN 4 mg/dL (8-23); BUN/CREATININE RATIO 5 (12-20 (CALC)); CARBON DIOXIDE 15 mmol/l (22-30); CHLORIDE 119 mmol/l (95-108); CREATININE 0.9 mg/dL (0.7-1.3); GFR > 60 ML/MIN (>=60 (CALC)); GFR FOR AFR.AMER. > 60 ML/MIN (>=60 (CALC)); MAGNESIUM 1.4 mg/dL (1.6-2.3); POTASSIUM 3.9 mmol/l (3.5-5.1); SODIUM 140 mmol/l (137-146)
[2021-11-30 07:30] VITALS: BP 137/62
[2021-11-30 10:33] VITALS: BP 129/63
[2021-11-30 14:35] VITALS: BP 111/52
== END 2021-11-30 18:30 | DRG 641 ==
LOC: MS2 14:56
PROVIDERS: Hospitalist; ADMIT Internal Medicine; ATTEND Internal Medicine
PROC: 0DH63UZ Insertion of Feeding Device into Stomach, Percutaneous Approach (ICD-10-PCS; principal; 2021-11-29)
DX: R62.7 Adult failure to thrive (principal); Z68.1 Body mass index [BMI] 19.9 or less, adult; I12.9 Hypertensive chronic kidney disease with stage 1 through stage 4 chronic kidney disease, or unspecified chronic kidney disease; E11.22 Type 2 diabetes mellitus with diabetic chronic kidney disease; N18.30 Chronic kidney disease, stage 3 unspecified; R13.10 Dysphagia, unspecified; I48.91 Unspecified atrial fibrillation; J44.9 Chronic obstructive pulmonary disease, unspecified; N40.0 Benign prostatic hyperplasia without lower urinary tract symptoms; F32.A Depression, unspecified; K21.9 Gastro-esophageal reflux disease without esophagitis; Z87.01 Personal history of pneumonia (recurrent); Z86.73 Personal history of transient ischemic attack (TIA), and cerebral infarction without residual deficits; Z87.891 Personal history of nicotine dependence; Z79.01 Long term (current) use of anticoagulants; Z86.19 Personal history of other infectious and parasitic diseases; Z20.822 Contact with and (suspected) exposure to COVID-19
CPT/HCPCS: J1650; J3475; J3490

== ENCOUNTER 2021-12-01 07:36 | Inpatient (IN) | payer MEDICARE, OTHER ==
[~2021-12-01] VITALS: Ht 175.3 cm; Wt 70.0 kg
[2021-12-01] VITALS (98 sets, daily range): BP systolic 76–125; BP diastolic 31–66
[2021-12-01 08:48] LABS: HEMATOCRIT 39.9 % (39.0-50.0); HEMOGLOBIN 12.3 g/dl (14.0-18.0); IMMATURE GRANULOCYTES 0.4 % (0.0-5.0); MEAN CELL VOLUME 98.8 fL CALC (80.0-100.0); MEAN CORPUSCULAR HGB 30.4 pG CALC (26.0-32.0); MEAN CORPUSCULAR HGB CONC 30.8 g/dL CAL (32.0-36.0); NEUT# 17.23 thou/uL (1.82-7.42); RED BLOOD COUNT 4.04 mill/uL (4.70-6.10); RED CELL DISTRI WIDTH 18.6 % (11.5-15.5)
[2021-12-01 09:09] LABS: ALKALINE PHOSPHATASE 92 u/l (38-126); ANION GAP 14 (6-22 (CALC)); BILIRUBIN, TOTAL 0.3 mg/dL (0.0-1.4); BUN 5 mg/dL (8-23); BUN/CREATININE RATIO 5 (12-20 (CALC)); CARBON DIOXIDE 12 mmol/l (22-30); CHLORIDE 116 mmol/l (95-108); CREATININE 1.1 mg/dL (0.7-1.3); GFR > 60 ML/MIN (>=60 (CALC)); GFR FOR AFR.AMER. > 60 ML/MIN (>=60 (CALC)); LIPASE 268 u/l (23-300); SGOT/AST 22 u/l (19-48); SODIUM 138 mmol/l (137-146); TOTAL PROTEIN 5.3 g/dL (6.3-8.2)
[2021-12-01 09:10] LABS: ALBUMIN 2.1 g/dL (3.2-5.0); MAGNESIUM 2.3 mg/dL (1.6-2.3)
[2021-12-01 09:26] LABS: INTERNATIONAL NORMALIZED RATIO 1.2 RATIO (0.7-1.3); PROTHROMBIN TIME 12.1 SECONDS (9.0-12.5)
[2021-12-02] VITALS (99 sets, daily range): BP systolic 86–120; BP diastolic 44–65
[2021-12-02 05:22] LABS: HEMATOCRIT 37.2 % (39.0-50.0); HEMOGLOBIN 11.4 g/dl (14.0-18.0); IMMATURE GRANULOCYTES 1.3 % (0.0-5.0); MEAN CELL VOLUME 101.4 fL CALC (80.0-100.0); MEAN CORPUSCULAR HGB 31.1 pG CALC (26.0-32.0); MEAN CORPUSCULAR HGB CONC 30.6 g/dL CAL (32.0-36.0); NEUT# 20.57 thou/uL (1.82-7.42); RED BLOOD COUNT 3.67 mill/uL (4.70-6.10); RED CELL DISTRI WIDTH 19.1 % (11.5-15.5)
[2021-12-02 05:41] LABS: ALKALINE PHOSPHATASE 51 u/l (38-126); BUN 9 mg/dL (8-23); BUN/CREATININE RATIO 9 (12-20 (CALC)); CHLORIDE 119 mmol/l (95-108); CREATININE 1.1 mg/dL (0.7-1.3); GFR > 60 ML/MIN (>=60 (CALC)); GFR FOR AFR.AMER. > 60 ML/MIN (>=60 (CALC)); MAGNESIUM 2.7 mg/dL (1.6-2.3); POTASSIUM 3.8 mmol/l (3.5-5.1); SGOT/AST 30 u/l (19-48); SODIUM 140 mmol/l (137-146)
[2021-12-02 05:45] LABS: ALBUMIN 1.4 g/dL (3.2-5.0); ANION GAP 9 (6-22 (CALC)); BILIRUBIN, TOTAL 0.1 mg/dL (0.0-1.4); CARBON DIOXIDE 16 mmol/l (22-30); TOTAL PROTEIN 3.7 g/dL (6.3-8.2)
[2021-12-02 11:05] LABS: URINE BILIRUBIN - DIPSTICK NEGATIVE (NEGATIVE); URINE BLOOD DIPSTICK SMALL (NEGATIVE); URINE COLOR YELLOW; URINE GLUCOSE - DIPSTICK NEGATIVE (NEGATIVE); URINE KETONE NEGATIVE (NEGATIVE); URINE PROTEIN - DIPSTICK 100 mg/dL (NEG-TRACE); URINE UROBILINOGEN - DIPSTICK 0.2 E.U./dL (0.2)
[2021-12-02 11:06] LABS: URINE LEUK ESTERASE MODERATE (NEGATIVE); URINE NITRITE - DIPSTICK NEGATIVE (Negative)
[2021-12-02 11:08] LABS: URINE WBC 50-100 WBC/hpf (0-5)
[2021-12-02 11:09] LABS: URINE AMORPH SEDIMENT MANY hpf (NONE-FER); URINE BACTERIA FEW hpf; URINE YEAST MODERATE hpf
[2021-12-03] VITALS (108 sets, daily range): BP systolic 62–117; BP diastolic 30–65
[2021-12-03 06:51] LABS: IMMATURE GRANULOCYTES 4.5 % (0.0-5.0); MEAN CELL VOLUME 101.1 fL CALC (80.0-100.0); MEAN CORPUSCULAR HGB CONC 30.7 g/dL CAL (32.0-36.0); NEUT# 18.02 thou/uL (1.82-7.42); RED BLOOD COUNT 2.71 mill/uL (4.70-6.10); RED CELL DISTRI WIDTH 20.4 % (11.5-15.5)
[2021-12-03 06:53] LABS: HEMATOCRIT 27.4 % (39.0-50.0); HEMOGLOBIN 8.4 g/dl (14.0-18.0)
[2021-12-03 07:42] LABS: ALBUMIN 1.3 g/dL (3.2-5.0); CREATININE 1.6 mg/dL (0.7-1.3); POTASSIUM 3.8 mmol/l (3.5-5.1); TOTAL PROTEIN 3.5 g/dL (6.3-8.2)
[2021-12-03 07:49] LABS: BILIRUBIN, TOTAL 0.2 mg/dL (0.0-1.4)
== END 2021-12-03 13:40 | disposition expired | DRG 326 ==
LOC: ED 07:36 → ED-I 11:00 → ED 11:28 → ICU 11:29
PROVIDERS: Internal Medicine; ADMIT Hospitalist; ATTEND Hospitalist
PROC: 0DQ60ZZ Repair Stomach, Open Approach (ICD-10-PCS; principal; 2021-12-01)
PROC: 0DHA0UZ Insertion of Feeding Device into Jejunum, Open Approach (ICD-10-PCS; 2021-12-01)
PROC: 02HV33Z Insertion of Infusion Device into Superior Vena Cava, Percutaneous Approach (ICD-10-PCS; 2021-12-01)
DX: K94.23 Gastrostomy malfunction (principal); A41.9 Sepsis, unspecified organism; K65.9 Peritonitis, unspecified; R65.21 Severe sepsis with septic shock; E46 Unspecified protein-calorie malnutrition; E87.2 Acidosis; N17.9 Acute kidney failure, unspecified; I12.9 Hypertensive chronic kidney disease with stage 1 through stage 4 chronic kidney disease, or unspecified chronic kidney disease; E11.22 Type 2 diabetes mellitus with diabetic chronic kidney disease; N18.30 Chronic kidney disease, stage 3 unspecified; J44.9 Chronic obstructive pulmonary disease, unspecified; N40.0 Benign prostatic hyperplasia without lower urinary tract symptoms; R13.10 Dysphagia, unspecified; I48.91 Unspecified atrial fibrillation; F32.A Depression, unspecified; K21.9 Gastro-esophageal reflux disease without esophagitis; F03.90 Unspecified dementia, unspecified severity, without behavioral disturbance, psychotic disturbance, mood disturbance, and anxiety; Y83.3 Surgical operation with formation of external stoma as the cause of abnormal reaction of the patient, or of later complication, without mention of misadventure at the time of the procedure; Z66 Do not resuscitate; Z51.5 Encounter for palliative care; Z87.01 Personal history of pneumonia (recurrent); Z86.73 Personal history of transient ischemic attack (TIA), and cerebral infarction without residual deficits; Z87.891 Personal history of nicotine dependence; Z20.822 Contact with and (suspected) exposure to COVID-19
CPT/HCPCS: J0282; J1650; J2060; Q9967; S0164